=== PATIENT | male | born 1965 | race Caucasian/White ===

== ENCOUNTER 2016-06-13 07:53 | Emergency (ER) | payer BC ==
[2016-06-13 08:17] VITALS: BP 165/85
[2016-06-13] MEDS ORDERED: Ketorolac INJ* 60 MG/2 ML VIAL IM ONE (08:44)
--- NOTE | 2016-06-13 15:10 | UC ---
mal Soto Timothy, scribed for Blanca Wilkerson DO on 06/13/16 at 0826 . Back Pain HPI - HPI Summary HPI Summary: Cr Lr is a 50 yo male presenting to [facility] with 8/10 mid-back ache radiating bilaterally to his flanks since 06/11/16. He states his left flank pain is worse than his right. He states when the pain started, he felt a knot in his middle back. Movement increases his pain, and laying flat on his back decreases the pain. He has medicated with heat, bengay, and ibuprofen with no relief. He states his urine has odd odor and is more colored than usual. He denies any other Sx. 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 He is a 1PPD smoker for the past 30 years, and occasionally uses marijuana. - History of Current Complaint Chief Complaint: UCBackPain Stated Complaint: MIDDLE BACK PAIN Time Seen by Provider: 06/13/16 08:17 Hx Obtained From: Patient Onset/Duration: Gradual Onset, Lasting Days, Still Present Timing: Constant, Lasting Days Severity Initially: Moderate Severity Currently: Moderate Pain Intensity: 9 Pain Scale Used: 0-10 Numeric Back Pain: Is Discrete @ - middle back, Radiates To - bilateral flanks Character: Aching Aggravating: Movement Alleviating: Position Associated Signs And Symptoms: Positive: Flank Pain. Negative: Swelling, Redness, Bruising, Fever, Weakness, Numbness, Tingling, Abdominal Pain, Bladder Incontinence, Bowel Incontinence - Risk Factors Cauda Equina Risk Factors: Negative - Allergies/Home Medications Allergies/Adverse Reactions: Allergies Allergy/AdvReac Type Severity Reaction Status Date / Time Banana Allergy Difficulty Verified 06/13/16 08:04 Breathing Levofloxacin [From Levaquin] Allergy Difficulty Verified 06/13/16 08:04 Breathing Home Medications: Home Medications Lisinopril TAB* [Prinivil TAB 10 MG*] 1 tab DAILY 06/13/16 [History Confirmed ] PMH/Surg Hx/FS Hx/Imm Hx Endocrine History Of: Reports: Diabetes - Type II Denies: Thyroid Disease, Hyperthyroidism, Hypothyroidism, Dyslipidemia Cardiovascular History Of: Reports: Hypertension Denies: Cardiac Disorders, Pacemaker/ICD, Myocardial Infarction, Congestive Heart Failure, Atrial Fibrillation, Deep Vein Thrombosis, Bleeding Disorders Respiratory History Of: Reports: COPD, Asthma, Pneumonia - 2013 Denies: Bronchitis, Pulmonary Embolism GI/ History Of: Denies: Gastroesophageal Reflux, Ulcer, Gastrointestinal Bleed, Gall Bladder Disease, Kidney Stones, Diverticulitis, Renal Disease, Urosepsis Neurological History Of: Denies: TIA, CVA, Dementia, Seizures, Migraine Psychological History Of: Denies: Anxiety, Depression, Bipolar Disorder, Schizophrenia, Post Traumatic Stress Disorder Cancer History Of: Denies: Lung Cancer, Colorectal Cancer, Breast Cancer, Prostate Cancer, Cervical Cancer Other History Of: Negative For: HIV, Hepatitis B, Hepatitis C, Anticoagulant Therapy - Surgical History Surgical History: None - Family History Known Family History: Positive: Cardiac Disease, Hypertension, Diabetes - Social History Occupation: Employed Full-time Alcohol Use: Occasionally Alcohol Amount: 3-4 shots a night Substance Use Type: Marijuana Smoking Status (MU): Heavy Every Day Tobacco Smoker Type: Cigarettes Amount Used/How Often: 1 PPD Length of Time of Smoking/Using Tobacco: 30+ years Have You Smoked in the Last Year: Yes Household Exposure Type: Cigarettes Cessation Counseling: Counseled 3+Min - 10 Min - Immunization History Most Recent Influenza Vaccination: doesn't usually get Most Recent Tetanus Shot: has had it doesnt remember when Most Recent Pneumonia Vaccination: unknown Review of Systems Constitutional: Negative Skin: Negative Eyes: Negative ENT: Negative Respiratory: Negative Cardiovascular: Negative Gastrointestinal: Negative Genitourinary: Other - bilateral flank pain, odorous and colored urine Motor: Negative Neurovascular: Negative Musculoskeletal: Other: - middle back pain Neurological: Negative Psychological: Negative All Other Systems Reviewed And Are Negative: Yes Physical Exam Triage Information Reviewed: Yes Appearance: Well-Appearing, Pain Distress - intermittent, Obese Vital Signs: Initial Vital Signs Temp 98 F 06/13/16 08:07 Pulse 91 06/13/16 08:07 Resp 18 06/13/16 08:07 BP 193/105 06/13/16 08:07 Pulse Ox 91 06/13/16 08:07 Vital Signs Reviewed: Yes Eyes: Positive: Conjunctiva Clear. Negative: Discharge ENT: Positive: Hearing grossly normal. Negative: Muffled/hoarse voice Dental: Positive: Gross Decay/Caries @ Neck: Positive: Supple, Nontender Respiratory: Positive: Lungs clear, Normal breath sounds - difficult to appreciate breath sounds, No respiratory distress, No accessory muscle use Cardiovascular: Positive: RRR - distant, No Murmur Abdomen Description: Positive: Soft. Negative: Nontender - RLQ tenderness to palpation, CVA Tenderness (R), CVA Tenderness (L), Distended, Guarding, McBurney 's Point Tenderness Bowel Sounds: Positive: Present Musculoskeletal: Positive: Other: - resitricted rotation to the left, side-bend to the right. Tender psoas, paraspinal muscles, left greater than right Neurological: Positive: Alert, Muscle Tone Normal, Other: - strength, reflexes and sensation intact bl Psychological Exam: Normal Psychological: Positive: Age Appropriate Behavior Skin Exam: Normal Re-Evaluation - Re-Evaluation First Eval Re-Evaluation Time: 09:15 Change: Unchanged Comment: Pt is informed of current diagnosis and disposition, and is having his questions answered. Back Pain Course/Dx - Course Course Of Treatment: Cr Lr is a 50 yo male presenting to [facility] with mid- back pain radiating bilaterally to his flanks. After clinical examination, urinalysis, and POC glucose (see results below),he will be discharged home with low back strain and appropriate instructions. POC Glucose: 174 mg/dL. UA. Color: yellow. character: clear. odor: none. Bilirubin: negative. urobilinogen: normal. ketones: 25 mg/dL. ascorbic acid: negative. glucose: negative. Protein: 100mg/dL. Blood: negative. pH: 5. Nitrite: negative. Leukocytes: 25 wBC/microliter. Specific [place]: 1.035 - Differential Dx/Diagnosis Differential Diagnosis/HQI/PQRI: Renal Colic, Strain, Sprain Provider Diagnoses: low back strain Discharge - Discharge Plan Condition: Stable Disposition: HOME Prescriptions: Cyclobenzaprine TAB* [Flexeril TAB*] 10 mg PO TID PRN #30 tab PRN Reason: Pain traMADol TAB* [Ultram*] 50 mg PO Q8H PRN #14 tab MDD 3 TABS PRN Reason: Pain Patient Education Materials: Low Back Strain (ED), Lower Back Exercises (ED) Forms: *Gen. Provider Communication, *Work Release Referrals: Dheeraj MOREAU,Daniele Daugherty [Primary Care Provider] - (FOLLOW UP IN 3-5) Additional Instructions: MUSCLE RELAXERS: Muscle relaxing medications are usually prescribed for acute muscle spasm or injury to the neck and back. They are often combined with antiinflammatory pain medication for increased relief. You may stop the muscle relaxer when the pain and stiffness have improved. Start the medication again if spasms recur. Muscle relaxers may cause drowsiness, especially with the first dose. Do not operate machinery or drive while under the effects of the medication. Most muscle relaxers last up to 24 hours. Do not combine the medication with alcohol. ULTRAM (tramadol hydrochloride): Ultram is an excellent drug for pain relief. It is not a narcotic, but it works in a similar way. Ultram can take up to two hours for full effect. Although not addicting, Ultram is best avoided in patients with a history of drug abuse. Ultram should not be used with alcohol, sleeping pills, or narcotics. If you're prone to seizures, Ultram can make you more likely to have a seizure. Ultram can be hazardous when combined with MAO-inhibitor antidepressants (such as Nardil or Parnate). Be sure your doctor is aware of all medicines you are taking. Persons with severe liver or kidney disease should increase the time between doses of Ultram. Discuss this with your doctor if you're uncertain. Side effects of Ultram can include dizziness, nausea, constipation, sleepiness, and itching. (These side effects are also seen with narcotic pain medicines.) Please call your doctor if you have other disturbing effects. STOP SMOKING: You should stop smoking. The tar and chemicals in cigarette smoke are harmful. Smoking has been shown to cause: emphysema chronic bronchitis lung cancer mouth and throat cancer stomach and pancreas cancer premature aging defects In addition, smoking increases ear and lung infections in children of smokers. YOU WOULD LIKELY BENEFIT FROM OSTEOPATHIC TREATMENT. WE RECOMMEND THAT YOU FIND AN OSTEOPATHIC PHYSICIAN IN YOUR AREA WHO FOCUSES EXCLUSIVELY ON OSTEOPATHIC MANIPULATIVE MEDICINE WITH EXPERTISE IN MYOFACIAL, LYMPHATIC, VISCERAL AND INTEROSSEOUS WORK If your pain persists, you may want to request physical therapy from your PCP. The documentation as recorded by the mal velázquez Timothy accurately reflects the service I personally performed and the decisions made by me, Blanca Wilkerson DO.
== END 2016-06-13 09:27 | disposition home or self-care (01) ==
LOC: UCEAST 07:53
DX: S39.012A Strain of muscle, fascia and tendon of lower back, initial encounter (principal); X58.XXXA Exposure to other specified factors, initial encounter; Y93.9 Activity, unspecified; Y92.9 Unspecified place or not applicable; R82.90 Unspecified abnormal findings in urine; E11.9 Type 2 diabetes mellitus without complications; Z88.8 Allergy status to other drugs, medicaments and biological substances; F12.90 Cannabis use, unspecified, uncomplicated; F17.210 Nicotine dependence, cigarettes, uncomplicated; Z71.6 Tobacco abuse counseling
CPT/HCPCS: 81002; 87086; 99212; G0463; J1885

== ENCOUNTER 2016-06-19 07:02 | Emergency (ER) | payer BC ==
[2016-06-19 07:13] VITALS: BP 181/90
[2016-06-19] MEDS: Ipratropium 0.5MG/2.5ML NEB* 0.5 MG/2.5 ML NEB.SOLN INH ONE (07:21)
[2016-06-19] MEDS: Albuterol 2.5 MG/3 ML NEB.SOL* (0.083%) INH ONE (07:21)
--- NOTE | 2016-06-19 07:21 | UC ---
Respiratory Complaint HPI - HPI Summary HPI Summary: 51 yo male with copd presents with <48 hours of fever/chills, sinus pain and pressure/cough/wheezing and GARCIA did not have flu shot this yr - History of Current Complaint Chief Complaint: UCRespiratory Stated Complaint: SOB ASTHMA COPD Time Seen by Provider: 06/19/16 07:07 Hx Obtained From: Patient Onset/Duration: Sudden Onset, Lasting Days Timing: Constant Severity Initially: Moderate Severity Currently: Moderate Pain Intensity: 4 Pain Scale Used: 0-10 Numeric Character: Cough: Productive Aggravating Factors: Deep Breaths Alleviating Factors: Bronchodilator Associated Signs And Symptoms: Positive: Dyspnea, Fever, Chills, Wheezing, Nasal Congestion, Hoarseness, Sinus Discomfort - Allergies/Home Medications Allergies/Adverse Reactions: Allergies Allergy/AdvReac Type Severity Reaction Status Date / Time Banana Allergy Difficulty Verified 06/13/16 08:04 Breathing Levofloxacin [From Levaquin] Allergy Difficulty Verified 06/13/16 08:04 Breathing PMH/Surg Hx/FS Hx/Imm Hx Previously Healthy: No Endocrine History Of: Reports: Diabetes - Type II Denies: Thyroid Disease, Hyperthyroidism, Hypothyroidism, Dyslipidemia Cardiovascular History Of: Reports: Hypertension Denies: Cardiac Disorders, Pacemaker/ICD, Myocardial Infarction, Congestive Heart Failure, Atrial Fibrillation, Deep Vein Thrombosis, Bleeding Disorders Respiratory History Of: Reports: COPD, Asthma, Pneumonia - 2012 Denies: Bronchitis, Pulmonary Embolism GI/ History Of: Denies: Gastroesophageal Reflux, Ulcer, Gastrointestinal Bleed, Gall Bladder Disease, Kidney Stones, Diverticulitis, Renal Disease, Urosepsis Neurological History Of: Denies: TIA, CVA, Dementia, Seizures, Migraine Psychological History Of: Denies: Anxiety, Depression, Bipolar Disorder, Schizophrenia, Post Traumatic Stress Disorder Cancer History Of: Denies: Lung Cancer, Colorectal Cancer, Breast Cancer, Prostate Cancer, Cervical Cancer Other History Of: Negative For: HIV, Hepatitis B, Hepatitis C, Anticoagulant Therapy - Surgical History Surgical History: None - Family History Known Family History: Positive: Cardiac Disease, Hypertension, Diabetes - Social History Alcohol Use: Daily Alcohol Amount: 3-4 shots a night Substance Use Type: Marijuana Smoking Status (MU): Heavy Every Day Tobacco Smoker Type: Cigarettes Amount Used/How Often: 1 PPD Length of Time of Smoking/Using Tobacco: 35+ years Have You Smoked in the Last Year: Yes Household Exposure Type: Cigarettes Cessation Counseling: Patient Advised to Stop - Immunization History Most Recent Influenza Vaccination: doesn't usually get Most Recent Tetanus Shot: has had it doesnt remember when Most Recent Pneumonia Vaccination: unknown Review of Systems Constitutional: Fever, Chills, Fatigue Skin: Negative Eyes: Negative ENT: Nasal Discharge Respiratory: Shortness Of Breath, Cough Cardiovascular: Negative Gastrointestinal: Negative Genitourinary: Negative Motor: Negative Neurovascular: Negative Musculoskeletal: Myalgia Neurological: Headache Psychological: Negative All Other Systems Reviewed And Are Negative: Yes Physical Exam Triage Information Reviewed: Yes Appearance: Well-Appearing, No Pain Distress, Well-Nourished Vital Signs: Initial Vital Signs Temp 99.1 F 06/19/16 07:09 Pulse 91 06/19/16 07:09 Resp 22 06/19/16 07:09 BP 181/90 06/19/16 07:09 Pulse Ox 89 06/19/16 07:09 Vital Signs Reviewed: Yes Eyes: Positive: Conjunctiva Clear ENT: Positive: Hearing grossly normal, Nasal congestion, Nasal drainage, TMs normal. Negative: Tonsillar exudate, Trismus, Muffled/hoarse voice Neck: Positive: Supple, Nontender, No Lymphadenopathy Respiratory: Positive: No respiratory distress, No accessory muscle use, Wheezing Cardiovascular: Positive: RRR, No Murmur Musculoskeletal: Positive: ROM Intact, No Edema Neurological: Positive: Alert Psychological Exam: Normal Skin Exam: Normal UC Diagnostic Evaluation - Laboratory O2 Sat by Pulse Oximetry: 89 - low - Radiology Xray Interpretation: No Acute Changes Radiology Interpretation Completed By: Radiologist Re-Evaluation - Re-Evaluation First Eval Re-Evaluation Time: 07:50 Change: Improved - lungs clear Respiratory Course/Dx - Differential Dx/Diagnosis Provider Diagnoses: acute bronchitis with bronchospasm Discharge - Discharge Plan Condition: Stable Disposition: HOME Prescriptions: DOXYcycline CAP(*) [DOXYcycline 100MG CAP(*)] 100 mg PO BID #20 cap Prednisone [Deltasone] 40 mg PO DAILY #10 tab Patient Education Materials: Acute Bronchitis (ED) Forms: *Work Release Referrals: Dheeraj MOREAU,Daniele Daugherty [Primary Care Provider] - 4 Days
--- NOTE | 2016-06-19 08:17 | RAD ---
HISTORY: Cough, wheeze COMPARISONS: 06/20 2015 VIEWS: 2: Frontal dual-energy and lateral views of the chest. FINDINGS: CARDIOMEDIASTINAL SILHOUETTE: The cardiomediastinal silhouette is normal. FROILAN: The froilan are normal. PLEURA: The costophrenic angles are sharp. No pleural abnormalities are noted. LUNG PARENCHYMA: There is hyperinflation with flattening of the diaphragm and expansion of the AP diameter of the chest. ABDOMEN: The upper abdomen is clear. There is no subphrenic gas. BONES AND SOFT TISSUES: No bone or soft tissue abnormalities are noted. OTHER: None. IMPRESSION: HYPERINFLATION, CONSISTENT WITH COPD. NO ACTIVE CARDIOPULMONARY DISEASE.
== END 2016-06-19 08:37 | disposition home or self-care (01) ==
LOC: UCEAST 07:02
DX: J20.9 Acute bronchitis, unspecified (principal); F17.290 Nicotine dependence, other tobacco product, uncomplicated; E11.9 Type 2 diabetes mellitus without complications; I10 Essential (primary) hypertension
CPT/HCPCS: 71020; 87502; 99212; G0463; J7644

== ENCOUNTER 2016-08-31 12:58 | Emergency (ER) | payer BC ==
[2016-08-31] MEDS ORDERED: Albuterol/Ipratropium NEB.SOL* Albuterol 2.5 MG/Ipratropium 0.5 MG 3 ML INH ONE (13:16)
[2016-08-31 14:18] VITALS: BP 146/78
--- NOTE | 2016-09-03 17:48 | UC ---
Hodan Soto Auryana, scribed for Kraig Baird MD on 08/31/16 at 1335 . Respiratory Complaint HPI - HPI Summary HPI Summary: 51 year old males presents with SOB starting a few days ago. He also has diffuse myalgias and productive cough - white sputum. He does state that his significant other had a U.R.I. PMHx is insignificant for asthma, COPD with chronic bronchitis- nebulizer treatments, and DM II. SHx is significant for tobacco use. - History of Current Complaint Chief Complaint: UCRespiratory Stated Complaint: SOB Time Seen by Provider: 08/31/16 13:15 Hx Obtained From: Patient Onset/Duration: Gradual Onset, Lasting Days - few days, Still Present Timing: Constant Severity Initially: Mild Severity Currently: Moderate Character: Cough: Productive - white small Associated Signs And Symptoms: Positive: Dyspnea, Wheezing. Negative: Fever Related History: Similar Episode/Dx as: - states chronically SOB-COPD and chronic bronchitis - Allergies/Home Medications Allergies/Adverse Reactions: Allergies Allergy/AdvReac Type Severity Reaction Status Date / Time Banana Allergy Difficulty Verified 06/13/16 08:04 Breathing Levofloxacin [From Levaquin] Allergy Difficulty Verified 06/13/16 08:04 Breathing PMH/Surg Hx/FS Hx/Imm Hx Endocrine History Of: Reports: Diabetes - Type II Denies: Thyroid Disease, Hyperthyroidism, Hypothyroidism, Dyslipidemia Cardiovascular History Of: Reports: Hypertension Denies: Cardiac Disorders, Pacemaker/ICD, Myocardial Infarction, Congestive Heart Failure, Atrial Fibrillation, Deep Vein Thrombosis, Bleeding Disorders Respiratory History Of: Reports: COPD, Asthma, Pneumonia - 2012 Denies: Bronchitis, Pulmonary Embolism GI/ History Of: Denies: Gastroesophageal Reflux, Ulcer, Gastrointestinal Bleed, Gall Bladder Disease, Kidney Stones, Diverticulitis, Renal Disease, Urosepsis Neurological History Of: Denies: TIA, CVA, Dementia, Seizures, Migraine Psychological History Of: Denies: Anxiety, Depression, Bipolar Disorder, Schizophrenia, Post Traumatic Stress Disorder Cancer History Of: Denies: Lung Cancer, Colorectal Cancer, Breast Cancer, Prostate Cancer, Cervical Cancer Other History Of: Negative For: HIV, Hepatitis B, Hepatitis C, Anticoagulant Therapy - Surgical History Surgical History: None - Family History Known Family History: Positive: Cardiac Disease, Hypertension, Diabetes - Social History Occupation: Employed Full-time Lives: With Family Alcohol Use: Daily Alcohol Amount: 3-4 shots a night Substance Use Type: Marijuana Smoking Status (MU): Heavy Every Day Tobacco Smoker Type: Cigarettes Amount Used/How Often: 1 PPD Length of Time of Smoking/Using Tobacco: 35+ years Have You Smoked in the Last Year: Yes Household Exposure Type: Cigarettes - Immunization History Most Recent Influenza Vaccination: doesn't usually get Most Recent Tetanus Shot: has had it doesnt remember when Most Recent Pneumonia Vaccination: unknown Review of Systems Constitutional: Negative Skin: Negative Eyes: Negative ENT: Negative Respiratory: Shortness Of Breath, Cough - productive Cardiovascular: Negative Gastrointestinal: Negative Genitourinary: Negative Motor: Negative Neurovascular: Negative Musculoskeletal: Negative Neurological: Negative Psychological: Negative All Other Systems Reviewed And Are Negative: Yes Physical Exam Triage Information Reviewed: Yes Appearance: Well-Appearing, No Pain Distress Vital Signs: Initial Vital Signs Temp 98.4 F 08/31/16 13:04 Pulse 99 08/31/16 13:04 Resp 28 08/31/16 13:04 BP 128/87 08/31/16 13:04 Pulse Ox 93 08/31/16 13:04 Vital Signs Reviewed: Yes Eyes: Positive: Conjunctiva Clear ENT: Positive: Hearing grossly normal, Pharyngeal erythema - mild, Nasal drainage - rhinorrhea, TMs normal Neck: Positive: Supple Respiratory: Positive: Wheezing Cardiovascular: Positive: Tachycardia Abdomen Description: Positive: Nontender, Soft Bowel Sounds: Positive: Present Musculoskeletal: Positive: Strength Intact, ROM Intact Neurological: Positive: Alert Psychological: Positive: Age Appropriate Behavior UC Diagnostic Evaluation - Laboratory O2 Sat by Pulse Oximetry: 93 Respiratory Course/Dx - Differential Dx/Diagnosis Provider Diagnoses: BRONCHITIS,COPD Discharge - Discharge Plan Condition: Stable Disposition: HOME Prescriptions: Azithromyxin SHAHRIAR (NF) [Z-Shahriar (Zithromax) 250 mg tabs #6] 2 tab PO .TODAY, THEN 1 DAILY #6 tab predniSONE TAB* [Deltasone TAB*] 40 mg PO DAILY #10 tab Patient Education Materials: Acute Bronchitis (ED), COPD (Chronic Obstructive Pulmonary Disease) (ED) Referrals: Dheeraj MOREAU,Daniele Daugherty [Primary Care Provider] - Additional Instructions: FOLLOW UP WITH YOUR DOCTOR. GO THE EMERGENCY DEPARTMENT WITH ANY WORSENING OF YOUR CONDITION OR QUESTIONS OR CONCERNS. The documentation as recorded by the Hodan velázquez Auryana accurately reflects the service I personally performed and the decisions made by me, Kraig Baird MD.
== END 2016-08-31 14:21 | disposition home or self-care (01) ==
LOC: UCEAST 12:58
DX: J44.9 Chronic obstructive pulmonary disease, unspecified (principal); J20.9 Acute bronchitis, unspecified; E11.9 Type 2 diabetes mellitus without complications; I10 Essential (primary) hypertension; Z88.1 Allergy status to other antibiotic agents; F12.90 Cannabis use, unspecified, uncomplicated; F17.210 Nicotine dependence, cigarettes, uncomplicated
CPT/HCPCS: 99212; A9270-GY; G0463

== ENCOUNTER 2016-11-15 08:55 | Emergency (ER) | payer BC ==
--- NOTE | 2016-11-15 09:10 | UC ---
Shortness of Breath HPI - HPI Summary HPI Summary: 51 year old male with COPD presents with complains of shortness of breath. - History of Current Complaint Chief Complaint: UCRespiratory Stated Complaint: TROUBLE BREATHING Time Seen by Provider: 11/15/16 09:04 - Allergy/Home Medications Allergies/Adverse Reactions: Allergies Allergy/AdvReac Type Severity Reaction Status Date / Time Banana Allergy Difficulty Verified 11/15/16 09:03 Breathing Levofloxacin [From Levaquin] Allergy Difficulty Verified 11/15/16 09:03 Breathing PMH/Surg Hx/FS Hx/Imm Hx Other History Of: Negative For: HIV, Hepatitis B, Hepatitis C, Anticoagulant Therapy - Surgical History Surgical History: None - Family History Known Family History: Positive: Cardiac Disease, Hypertension, Diabetes - Social History Alcohol Use: Daily Alcohol Amount: 3-4 shots a night Substance Use Type: Marijuana Smoking Status (MU): Heavy Every Day Tobacco Smoker Type: Cigarettes Amount Used/How Often: "a little less than a pack/day" Length of Time of Smoking/Using Tobacco: 35+ years Have You Smoked in the Last Year: Yes Household Exposure Type: Cigarettes - Immunization History Most Recent Influenza Vaccination: doesn't usually get Most Recent Tetanus Shot: has had it doesnt remember when Most Recent Pneumonia Vaccination: unknown Review of Systems Constitutional: Negative Skin: Negative Eyes: Negative ENT: Negative, Dental Pain Respiratory: Shortness Of Breath, Cough Cardiovascular: Negative Gastrointestinal: Negative Genitourinary: Negative Motor: Negative Neurovascular: Negative Musculoskeletal: Negative Neurological: Negative Psychological: Negative All Other Systems Reviewed And Are Negative: Yes Physical Exam Triage Information Reviewed: Yes Vital Signs: Initial Vital Signs Temp 36.7 C 11/15/16 08:58 Pulse 85 11/15/16 08:58 Resp 16 11/15/16 08:58 BP 174/92 11/15/16 08:58 Pulse Ox 91 11/15/16 08:58 Eye Exam: Normal ENT Exam: Normal Dental Exam: Normal Neck exam: Normal Neck: Positive: 1 Respiratory: Positive: Decreased breath sounds, Rhonchi, Wheezing, Expiration Cardiovascular Exam: Normal Abdominal Exam: Normal Musculoskeletal Exam: Normal Neurological Exam: Normal Psychological Exam: Normal Skin Exam: Normal Shortness of Breath Dx - Differential Dx/Diagnosis Provider Diagnoses: copd exacerbation Discharge - Discharge Plan Condition: Stable Disposition: HOME Prescriptions: Albuterol HFA INHALER* [Ventolin HFA Inhaler*] 1 puff INH Q6H PRN #1 mdi PRN Reason: Sob/Wheezing Azithromyxin NITESH (NF) [Z-Nitesh (Zithromax) 250 mg tabs #6] 2 tab PO .TODAY, THEN 1 DAILY #6 tab predniSONE TAB* [Deltasone TAB*] 40 mg PO DAILY #10 tab Patient Education Materials: COPD (Chronic Obstructive Pulmonary Disease) (ED) , How Your Lungs Work (ED), Dyspnea Scale and Exercise (ED) Forms: *Work Release Referrals: Dheeraj MOREAU,Daniele Daugherty [Primary Care Provider] -
[2016-11-15] MEDS ORDERED: Albuterol/Ipratropium NEB.SOL* Albuterol 2.5 MG/Ipratropium 0.5 MG 3 ML INH ONE (09:16)
[2016-11-15 09:46] VITALS: BP 152/86
== END 2016-11-15 09:46 | disposition home or self-care (01) ==
LOC: UCEAST 08:55
DX: J44.9 Chronic obstructive pulmonary disease, unspecified (principal); F17.210 Nicotine dependence, cigarettes, uncomplicated
CPT/HCPCS: 99213; A9270-GY; G0463

== ENCOUNTER 2016-11-30 08:05 | Observation (INO) | payer BC ==
[2016-11-30] MEDS ORDERED: methylPREDNISolone 125 MG* 2 ML VIAL IV ONE (08:49)
[2016-11-30] MEDS ORDERED: Albuterol/Ipratropium NEB.SOL* Albuterol 2.5 MG/Ipratropium 0.5 MG 3 ML INH ONE (08:49)
[2016-11-30 08:58] LABS: Hematocrit 49 % (42-52); Hemoglobin 16.1 g/dl (14.0-18.0); Mean Corpuscular HGB Conc 33 g/dl (31-36); Mean Corpuscular Hemoglobin 30 pg (27-31); Mean Corpuscular Volume 91 fL (80-94); Mean Platelet Volume 9 um3 (7.4-10.4); Red Blood Count 5.37 10^6/ul (4.0-5.4); Red Cell Distribution Width 14 % (10.5-15); White Blood Count 6.9 10^3/ul (3.5-10.8)
[2016-11-30 09:10] LABS: Albumin 3.8 g/dL (3.2-5.2); Calcium 9.1 mg/dL (8.6-10.3); EGFR African American 167.2 (>60); Potassium 4.9 mmol/L (3.5-5.0); Total Bilirubin 0.4 mg/dL (0.2-1.0); Total Protein 6.8 g/dL (6.4-8.9)
[2016-11-30 09:13] LABS: Troponin I 0.01 ng/mL (<0.04)
--- NOTE | 2016-11-30 09:17 | RAD ---
INDICATION: Difficulty breathing COMPARISON: Similar chest x-ray June 19, 2016 TECHNIQUE: PA and lateral views of the chest were obtained. FINDINGS: The heart and mediastinum are normal in size and contour. The lungs are grossly clear. There is no evidence of large pleural effusion. Visualized bones are normal for the patient's age. There is no radiographic evidence of free air beneath the diaphragm IMPRESSION: No radiographic evidence of acute cardiopulmonary disease.
[2016-11-30] MEDS ORDERED: Albuterol 2.5 MG/3 ML NEB.SOL* (0.083%) INH PRN (11:32)
[2016-11-30] MEDS ORDERED: Ondansetron INJ* 2 MG/ML VIAL IV PRN (11:32)
[2016-11-30] MEDS ORDERED: Acetaminophen TAB* 325 MG PO PRN (11:32)
[2016-11-30] MEDS ORDERED: Dextrose 50% Syringe 50 ML* 25 GM/50 ML SYRINGE IV PUSH PRN (11:45)
[2016-11-30] MEDS ORDERED: Thiamine IV* 100 MG, Folic Acid IV* 1 MG, Multiple Vitamin IV ADULT* 10 ML in NS 0.9% 1... IV ONE (11:45)
[2016-11-30] MEDS ORDERED: LORazepam TAB(*) 1 MG PO SCH (12:00)
[2016-11-30] MEDS: Heparin VIAL(*) 5000 UNITS/ML VIAL (FIVE THOUSAND) SUBCUT SCH ×2 (14:01→21:29)
[2016-11-30] MEDS: Insulin LISPRO* 1 UNITS UNIT SUBCUT SCH ×2 (14:05→18:27)
[2016-11-30] MEDS: predniSONE TAB* 20 MG PO SCH (14:06)
[2016-11-30] MEDS: Azithromycin IV(*) 500 MG in NS 0.9% 250 ML* 250 ML IVPB SCH (14:10)
[2016-11-30] MEDS: Albuterol/Ipratropium NEB.SOL* Albuterol 2.5 MG/Ipratropium 0.5 MG 3 ML INH SCH ×3 (15:19→23:34)
[2016-11-30] MEDS ORDERED: Insulin LISPRO* 1 UNITS UNIT SUBCUT SCH (16:30)
--- NOTE | 2016-11-30 17:20 | HP ---
CC: Dr. Esqueda * HISTORY AND PHYSICAL: DATE OF ADMISSION: 11/30/16 ATTENDING PHYSICIAN: Dr. Hurtado * (DICTATED BY LANA VALLE NP) PRIMARY CARE PROVIDER: Dr. Esqueda. CHIEF COMPLAINT: Shortness of breath. HISTORY OF PRESENT ILLNESS: Mr. Lr is a 51-year-old male patient with a history of ALEJANDRO, noncompliant with CPAP; COPD; diabetes and hyperlipidemia. He comes into the ER today stating that the last several days he has had progressive worsening shortness of breath, increasing cough, increasing dyspnea on exertion with minimal exertion and stating that he has been bringing up a clear to yellowish type sputum at times. He denies having had any fever or chills. No recent sick contacts. 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 At home he was taking his nebulizers, they were not helping as well as they used to. So, he was concerned and decided to come into the ER today. He denies any nausea, vomiting or diarrhea. No calf pain, leg pain or recent trips or travel or any again pain with inspiration. He came in and was evaluated. There was concern because of the COPD, there was concern for exacerbation, we were asked to evaluate for admission. PAST MEDICAL HISTORY: Significant for: 1. COPD. 2. Diabetes. 3. ALEJANDRO. 4. Hyperlipidemia. PAST SURGICAL HISTORY: The patient denied. HOME MEDICATIONS: According to the list that was obtained include: 1. Lisinopril 20 mg daily. 2. Albuterol 1 puff inhaled every 6 hours as needed. 3. Spiriva 1 capsule inhaled daily. 4. Lantus 70 units daily subcu. 5. Advair 2 puffs inhaled b.i.d. FAMILY HISTORY: His mother's history was reviewed and noncontributory. Father had a history of liver cirrhosis. SOCIAL HISTORY: He is a smoker. He smokes about a pack a day. He does have 2 drinks at night, but at sometimes he drinks up to 5 drinks at night. He denies any recreational drug use. Surrogate decision maker is his girlfriend. REVIEW OF SYSTEMS: There was no documented fever. Denied having had any significant weight change. There was no double vision. There was no ear discharge. No rhinorrhea. No sore throat. No thyroid enlargement. Denied having any chest pain with the exception when he coughs. Denied having had any abdominal discomfort. No nausea. No vomiting. No dysuria. No frequency. There was no dyspnea on exertion. There is no orthopnea. There is no loss of consciousness. No pruritus. No skin ulcerations. Review of 14 systems completed, all others negative. PHYSICAL EXAMINATION GENERAL: At this time, Mr. Lr is a 51-year-old male patient, he is sitting in the ER stretcher, he does not appear to be in any acute respiratory distress. VITAL SIGNS: Blood pressure 147/75, pulse 95, respirations 18, O2 sat initially was 86% on room air, it is down 95% on 2 L and temperature was 98.4. When he ambulates, his O2 sat drops down to 79% down here in the ER. HEENT: Head is atraumatic, normocephalic. Eyes, EOMs are intact. Sclerae anicteric. Not pale. Throat: Oral mucosa appears to be moist. No oropharyngeal erythema. NECK: Supple. LUNGS: He has had rhonchi throughout and wheezing in the upper lobe. Equal diaphragmatic expansion. HEART: Sounds S1, S2. Regular rate and rhythm. No murmurs, rubs or gallops. ABDOMEN: Soft, flat, nontender. Bowel sounds present. EXTREMITIES: Pulses are 2+ throughout. He is able to move all 4 extremities with 5/5 strength. NEUROLOGIC: The patient is awake, alert and oriented x3. Tongue midline. Promotions Team Leader equal. No gross focal deficits. SKIN: Intact. DIAGNOSTIC STUDIES/LAB DATA: Today revealed WBC 6.9, RBC of 5.27, hemoglobin 16.1, hematocrit 49, platelet count of 128. D-dimer was less than 200. Sodium 136, potassium 4.9, chloride 95, bicarb 34, BUN 13, creatinine 0.65, glucose 287 , lactate 1.6, calcium 9.1. Total bili is 3.4, his AST was 25, ALT was 30, alk phos 36. Troponin was 0.01, BNP 834. Albumin is 3.8. He did have a chest x-ray obtained today which impression: No radiographic evidence for acute cardiopulmonary disease. He had an EKG obtained today which revealed a normal sinus rhythm with an intraventricular conduction delay, rate 85. No ST elevations or T-wave inversions. It was reviewed with previous EKG from a year ago which appears to be similar. Old medical records reviewed. ASSESSMENT AND PLAN: Mr. Lr is a 51-year-old male patient coming into the ER today with complaints of not feeling well, increasing cough, increasing shortness of breath and dyspnea on exertion. On evaluation found to be rhonchus , no wheezing on exam. He will be admitted under observation status for: 1. Chronic obstructive pulmonary disease exacerbation. At this point, we will go ahead and put him on steroids, standing nebs, put him on azithromycin. I do not think he is actually infected, but the azithromycin may help inflammation. We will check legionella antigen, strep pneumo antigen, sputum cultures as well. We will order a flutter valve for pulmonary toileting and will continue with again steroids, Dulera, and standing nebs. 2. Diabetes. We will continue on him insulin sliding scale. Continue his Lantus and checking an A1c. 3. History of hypertension continue meds prescribed. 4. Obstructive sleep apnea, follow up with his primary. 5. Ethanol use. At this point, I am going to go ahead and give him a banana bag, put him on WAM protocol as he does state that he drinks up to 5 mixed drinks on a nightly basis at times, so we will monitor this. 6. DVT prophylaxis: He is at moderate risk. I am going to go ahead and put him on heparin subcu. 7. Code status. He is full code. 8. Fluids, electrolytes, nutrition: He can have a consistent carb diet. TIME SPENT: Time spent on the admission was approximately 60 minutes, greater than half the time was spent [id number] with the patient, obtaining my history and physical, the other time was spent going over the plan of care with the patient and implementing my plan of care. I did discuss the plan of care with my attending Dr. Hurtado, she is in agreement. LANA VALLE NP [id number]/[facility] #: [id number] MTDD
[2016-11-30] MEDS ORDERED: Insulin GLARGINE(*) 1 UNITS UNIT SUBCUT SCH (18:30)
[2016-11-30] MEDS: Mometasone/Formoter 200/5 MDI INH SCH (19:45)
[2016-12-01] MEDS: Albuterol/Ipratropium NEB.SOL* Albuterol 2.5 MG/Ipratropium 0.5 MG 3 ML INH SCH ×3 (02:58→11:43)
[2016-12-01 04:43] LABS: Hematocrit 45 % (42-52); Hemoglobin 14.9 g/dl (14.0-18.0); Mean Corpuscular HGB Conc 33 g/dl (31-36); Mean Corpuscular Hemoglobin 30 pg (27-31); Mean Corpuscular Volume 91 fL (80-94); Mean Platelet Volume 9 um3 (7.4-10.4); Red Blood Count 4.93 10^6/ul (4.0-5.4); Red Cell Distribution Width 14 % (10.5-15); White Blood Count 9.6 10^3/ul (3.5-10.8)
[2016-12-01 04:54] LABS: BUN/Creatinine Ratio 27.1 (8-20); Calcium 8.6 mg/dL (8.6-10.3); EGFR Non-African American 145.4 (>60)
[2016-12-01 05:04] LABS: Potassium 4.7 mmol/L (3.5-5.0)
[2016-12-01] MEDS: Heparin VIAL(*) 5000 UNITS/ML VIAL (FIVE THOUSAND) SUBCUT SCH ×2 (06:01→13:32)
[2016-12-01] MEDS: Mometasone/Formoter 200/5 MDI INH SCH (07:46)
[2016-12-01] MEDS: predniSONE TAB* 20 MG PO SCH (08:46)
[2016-12-01] MEDS: Insulin LISPRO* 1 UNITS UNIT SUBCUT SCH ×2 (08:46→13:29)
[2016-12-01] MEDS ORDERED: Lisinopril TAB* 10 MG PO SCH (09:00)
[2016-12-01] MEDS ORDERED: Thiamine TAB* 100 MG TAB PO SCH (09:00)
[2016-12-01] MEDS ORDERED: Multivitamins/Minerals TAB PO SCH (09:00)
[2016-12-01] MEDS ORDERED: Folic Acid TAB* 1 MG PO SCH (09:00)
[2016-12-01 12:44] VITALS: BP 153/83
[2016-12-01] MEDS: Azithromycin IV(*) 500 MG in NS 0.9% 250 ML* 250 ML IVPB SCH (13:39)
--- NOTE | 2016-12-01 14:08 | PN ---
Progress Note - Progress Note Date of Service: 12/01/16 Note: See my discharge summary. I also advised patient to limit his alcohol use to not more than 2 drinks per day.
--- NOTE | 2016-12-02 06:11 | DS ---
CC: Dr. Esqueda * DISCHARGE SUMMARY: DATE OF ADMISSION: DATE OF DISCHARGE: 12/01/16 HISTORY: This 51-year-old man presented with shortness of breath. He stated he had an increasing shortness of breath for few days. He describes his sputum as cream colored, not clear. He said he had some wheezing at home. He continued to smoke up until the time of admission. The rest of the history is detailed in the admission note. The patient was given methylprednisolone as well as oral prednisone in the hospital. He improved significantly overnight. He got intravenous azithromycin as well. He was no longer wheezing at the time of discharge. His room air sats did fall into the 80s in the middle of the day. I note he has oxygen at home to use at night. He has been noncompliant with CPAP. I advised him to quit smoking and avoid second-hand smoke. He appeared to be motivated to do so. If he does actually quit smoking, that plus treating his infection should improve his oxygenation and I suspect he would not need daytime oxygen. FINAL DIAGNOSES: 1. Chronic obstructive pulmonary disease exacerbation. 2. Tobacco use disorder. 3. Diabetes. 4. Hypertension. 5. Obstructive sleep apnea. 6. Hyperlipidemia. DISCHARGE MEDICATIONS: 1. Azithromycin 250 mg daily for 4 more days. 2. Prednisone 10 mg to taper from 4 to 0 over 4 days. 3. Guaifenesin 100 mg p.o. 4 times a day by liquid. 4. Advair Diskus 500/50 two puffs b.i.d. 5. Tiotropium 1 capsule daily. 6. Glargine insulin 70 units daily. 7. Lisinopril 20 mg daily. 8. Albuterol inhaler 1 puff every 6 hours p.r.n. [id number]/[facility] #: [id number] [facility]
--- NOTE | 2016-12-03 14:25 | ED ---
Caden Soto Rebecca, scribed for David Welsh MD on 11/30/16 at 0850 . Shortness of Breath - HPI Summary HPI Summary: Pt is a 51 y/o M who presents to ED c/o worsening SOB characterized as dyspnea at rest. Sx aggravated by exertion, alleviated by nothing. Reports his typical Tx are not as effective as they have been previously. Notes productive cough ( milky/clear sputum), intermittent SULLIVAN when he wakes up and a "knot" in the R shoulder over the R trapezius. Denies fever, chills, diaphoresis, edema and CP. States his O2 sat is lower than usual (typically 89-92). Uses 2.5 L O2 per Os at home at night. PMHx DM and COPD. Pt was seen at [facility] 10 days ago where he was given Prednisone and Duoneb and Z-Pac (finished 1 week ago) which he has been compliant with. - History of Current Complaint Chief Complaint: EDShortnessOfBreath Time Seen by Provider: 11/30/16 08:37 Hx Obtained From: Patient Onset/Duration: Still Present Dyspnea At: Rest Aggrevating Factors: Movement Alleviating Factors: Nothing Associated Signs & Symptoms: Cough (Productive) - Allergy/Home Medications Allergies/Adverse Reactions: Allergies Allergy/AdvReac Type Severity Reaction Status Date / Time Banana Allergy Difficulty Verified 11/15/16 09:03 Breathing Levofloxacin [From Levaquin] Allergy Difficulty Verified 11/15/16 09:03 Breathing PMH/Surg Hx/FS Hx/Imm Hx Endocrine/Hematology History: Reports: Hx Diabetes - Type II Denies: Hx Anticoagulant Therapy, Hx Thyroid Disease Cardiovascular History: Reports: Hx Hypertension, Other Cardiovascular Problems/ Disorders - 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 Denies: Hx Congestive Heart Failure, Hx Deep Vein Thrombosis, Hx Myocardial Infarction, Hx Pacemaker/ICD Respiratory History: Reports: Hx Asthma, Hx Chronic Obstructive Pulmonary Disease (COPD), Hx Pneumonia - 2012 Denies: Hx Lung Cancer, Hx Pulmonary Embolism GI History: Denies: Hx Gall Bladder Disease, Hx Gastrointestinal Bleed, Hx Ulcer, Hx Urosepsis History: Denies: Hx Kidney Stones, Hx Renal Disease Sensory History: Denies: Hx Contacts or Glasses, Hx Eye Injury, Hx Vision Problem, Hx Deafness , Hx Hearing Aid, Hx Hearing Problem Opthamlomology History: Denies: Hx Contacts or Glasses, Hx Eye Injury, Hx Vision Problem Neurological History: 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 Denies: Hx Dementia, Hx Migraine, Hx Seizures, Hx Transient Ischemic Attacks (TIA) Psychiatric History: Denies: Hx Anxiety, Hx Depression, Hx Schizophrenia, Hx Bipolar Disorder - Cancer History Cancer Type, Location and Year: DENIES Infectious Disease History: No Infectious Disease History: Denies: Hx Clostridium Difficile, Hx Hepatitis, Hx Human Immunodeficiency Virus (HIV), Hx of Known/Suspected MRSA, Hx Shingles, Hx Tuberculosis, Hx Known/ Suspected VRE, Hx Known/Suspected VRSA, History Other Infectious Disease, Traveled Outside the [place] in Last 30 Days - Family History Known Family History: Positive: Cardiac Disease, Hypertension, Diabetes - Social History Alcohol Use: Daily Alcohol Amount: 3-4 mixed drink daily Substance Use Type: Reports: Marijuana Hx Tobacco Use: No Smoking Status (MU): Light Every Day Tobacco Smoker Type: Cigarettes Amount Used/How Often: "a little less than a pack/day" Length of Time of Smoking/Using Tobacco: 35+ years Have You Smoked in the Last Year: Yes Review of Systems Negative: Fever, Chills, Skin Diaphoresis Negative: Erythema Negative: Sore Throat Negative: Chest Pain Positive: Shortness Of Breath, Cough - productive Negative: Abdominal Pain, Vomiting, Nausea Negative: dysuria, hematuria Positive: Other - "knot" in the R shoulder over the R trapezius. Negative: Edema Negative: Rash Neurological: Other - Denies dizziness Positive: Headache - Intermittent SULLIVAN upon waking up All Other Systems Reviewed And Are Negative: Yes Physical Exam - Summary Physical Exam Summary: Constitutional: Well-developed, Well-nourished, Alert. (-) Distressed Skin: Warm, Dry HENT: Normocephalic; Atraumatic Eyes: Conjunctiva normal Neck: Musculoskeletal ROM normal neck. (-) JVD, (-) Stridor, (-) Tracheal deviation Cardio: Rhythm regular, rate normal, Heart sounds normal; Intact distal pulses; The pedal pulses are 2+ and symmetric. Radial pulses are 2+ and symmetric. (-) Murmur Pulmonary/Chest wall: Effort normal. Diffuse rhonchi and wheezes, (-) Respiratory distress Abd: Soft, (-) Tenderness, (-) Distension, (-) Guarding, (-) Rebound Musculoskeletal: (-) Edema Lymph: (-) Cervical adenopathy Neuro: Alert, Oriented x3 Psych: Mood and affect Normal Triage Information Reviewed: Yes Vital Signs On Initial Exam: Initial Vitals Temp Pulse Resp BP Pulse Ox 98.4 F 95 18 147/75 86 11/30/16 08:06 11/30/16 08:06 11/30/16 08:06 11/30/16 08:06 11/30/16 08:06 Vital Signs Reviewed: Yes - [place] Coma Scale Coma Scale Total: 15 Diagnostics - Vital Signs Vital Signs Temp Pulse Resp BP Pulse Ox 11/30/16 08:26 20 11/30/16 08:23 90 95 11/30/16 08:20 98.9 F 87 20 112/105 94 11/30/16 08:06 98.4 F 95 18 147/75 86 - Laboratory Lab Results: Lab Results 11/30/16 11/30/16 11/30/16 Range/Units 08:35 08:35 08:35 WBC 6.9 (3.5-10.8) 10^3/ul RBC 5.37 (4.0-5.4) 10^6/ul Hgb 16.1 (14.0-18.0) g/dl Hct 49 (42-52) % MCV 91 (80-94) fL MCH 30 (27-31) pg MCHC 33 (31-36) g/dl RDW 14 (10.5-15) % Plt Count 128 L (150-450) 10^3/ul MPV 9 (7.4-10.4) um3 Neut % (Auto) 50.7 (38-83) % Lymph % (Auto) 33.0 (25-47) % [place] % (Auto) 11.7 H (1-9) % Eos % (Auto) 3.4 (0-6) % Baso % (Auto) 1.2 (0-2) % Absolute Neuts (auto) 3.5 (1.5-7.7) 10^3/ul Absolute Lymphs (auto) 2.3 (1.0-4.8) 10^3/ul Absolute Monos (auto) 0.8 (0-0.8) 10^3/ul Absolute Eos (auto) 0.2 (0-0.6) 10^3/ul Absolute Basos (auto) 0.1 (0-0.2) 10^3/ul Absolute Nucleated RBC 0.01 10^3/ul Nucleated RBC % 0.1 D-Dimer, Quantitative < 200 (Less Than 230) ng/mL Sodium 136 (133-145) mmol/L Potassium 4.9 (3.5-5.0) mmol/L Chloride 95 L (101-111) mmol/L Carbon Dioxide 34 H (22-32) mmol/L Anion Gap 7 (2-11) mmol/L BUN 13 (6-24) mg/dL Creatinine 0.65 L (0.67-1.17) mg/dL Est GFR ( Amer) 167.2 (>60) Est GFR (Non-Af Amer) 130.0 (>60) BUN/Creatinine Ratio 20.0 (8-20) Glucose 287 H (70-100) mg/dL Lactic Acid (0.5-2.0) mmol/L Calcium 9.1 (8.6-10.3) mg/dL Total Bilirubin 0.40 (0.2-1.0) mg/dL AST 25 (13-39) U/L ALT 30 (7-52) U/L Alkaline Phosphatase 36 (34-104) U/L Troponin I 0.01 (<0.04) ng/mL B-Natriuretic Peptide ( - 100) pg/mL Total Protein 6.8 (6.4-8.9) g/dL Albumin 3.8 (3.2-5.2) g/dL Globulin 3.0 (2-4) g/dL Albumin/Globulin Ratio 1.3 (1-3) 11/30/16 11/30/16 Range/Units 08:35 08:35 WBC (3.5-10.8) 10^3/ul RBC (4.0-5.4) 10^6/ul Hgb (14.0-18.0) g/dl Hct (42-52) % MCV (80-94) fL MCH (27-31) pg MCHC (31-36) g/dl RDW (10.5-15) % Plt Count (150-450) 10^3/ul MPV (7.4-10.4) um3 Neut % (Auto) (38-83) % Lymph % (Auto) (25-47) % [place] % (Auto) (1-9) % Eos % (Auto) (0-6) % Baso % (Auto) (0-2) % Absolute Neuts (auto) (1.5-7.7) 10^3/ul Absolute Lymphs (auto) (1.0-4.8) 10^3/ul Absolute Monos (auto) (0-0.8) 10^3/ul Absolute Eos (auto) (0-0.6) 10^3/ul Absolute Basos (auto) (0-0.2) 10^3/ul Absolute Nucleated RBC 10^3/ul Nucleated RBC % D-Dimer, Quantitative (Less Than 230) ng/mL Sodium (133-145) mmol/L Potassium (3.5-5.0) mmol/L Chloride (101-111) mmol/L Carbon Dioxide (22-32) mmol/L Anion Gap (2-11) mmol/L BUN (6-24) mg/dL Creatinine (0.67-1.17) mg/dL Est GFR ( Amer) (>60) Est GFR (Non-Af Amer) (>60) BUN/Creatinine Ratio (8-20) Glucose (70-100) mg/dL Lactic Acid 1.6 (0.5-2.0) mmol/L Calcium (8.6-10.3) mg/dL Total Bilirubin (0.2-1.0) mg/dL AST (13-39) U/L ALT (7-52) U/L Alkaline Phosphatase (34-104) U/L Troponin I (<0.04) ng/mL B-Natriuretic Peptide 34 ( - 100) pg/mL Total Protein (6.4-8.9) g/dL Albumin (3.2-5.2) g/dL Globulin (2-4) g/dL Albumin/Globulin Ratio (1-3) Result Diagrams: 12/01/16 04:32 12/01/16 04:32 Lab Statement: Any lab studies that have been ordered have been reviewed, and results considered in the medical decision making process. - Radiology CXR Xray Interpretation: No Acute Changes - No radiographic evidence of acute cardiopulmonary disease. Radiology Interpretation Completed By: Radiologist - EKG 0936 Cardiac Rate: NL - 79 bpm EKG Rhythm: Sinus Rhythm EKG Interpretation: No STEMI Re-Evaluation - Re-Evaluation First Eval Re-Evaluation Time: 10:20 Change: Improved Comment: Pt reports sx have improved. Second Eval Re-Evaluation Time: 11:08 Change: Unchanged Comment: Pt agrees to be admitted. Course/Dx - Course Assessment/Plan: Pt is a 51 y/o M who presents to ED c/o worsening SOB characterized as dyspnea at rest. Sx aggravated by exertion. Reports his typical Tx are not as effective as they have been previously. Notes productive cough (milky/clear sputum), intermittent SULLIVAN when he wakes up and a "knot" in the R shoulder over the R trapezius. Denies fever, chills, diaphoresis, edema and CP. States his O2 sat is lower than usual (typically 89-92). Uses 2.5 L O2 per Os at home at night. PMHx DM and COPD. Pt was seen at [facility] 10 days ago where he was given Prednisone and Duoneb and Z-Pac (finished 1 week ago) which he has been compliant with. In the ED course, pt was administered Solu-Medrol and Duoneb. CXR and EKG reveal no acute findings. Reviewed old records and in 2016 he had pulse oximetry at 89%. Discussed care of pt with Dr. Evelia Hurtado who accepts pt for admission. The pt agrees and understands. patient medications reviewed this visit. Elevated BP noted and advised to f/u. 35 minutes CC time. - Diagnoses Provider Diagnoses: Hypoxemia, COPD exacerbation - Physician Notifications Discussed Care of Patient With: Evelia Hurtado Time Discussed With Above Provider: 11:06 Instructed by Provider To: Other - Accepts pt for admission. - Critical Care Time Critical Care Time: 30-74 min - 35 minutes Discharge - Discharge Plan Condition: Improved Disposition: ADMITTED TO [facility] documentation as recorded by the Caden velázquez Rebecca accurately reflects the service I personally performed and the decisions made by me, David Welsh MD.
== END 2016-12-01 15:00 | disposition home or self-care (01) ==
LOC: ED 08:05 → MED 11:30
PROVIDERS: ADMIT Hospitalist; ATTEND Internal Medicine
DX: J44.1 Chronic obstructive pulmonary disease with (acute) exacerbation (principal); F17.210 Nicotine dependence, cigarettes, uncomplicated; E11.9 Type 2 diabetes mellitus without complications; Z79.4 Long term (current) use of insulin; G47.33 Obstructive sleep apnea (adult) (pediatric); E78.5 Hyperlipidemia, unspecified; I10 Essential (primary) hypertension; Z72.89 Other problems related to lifestyle
CPT/HCPCS: 36415; 71020; 80048; 80053; 82947; 83036; 83605; 83880; 84484; 85025; 85379; 85610; 87040; 87070; 87077; 87186; 87205; 87899; 93005; 94640; 94760; 96374; 99284; A9270-GY; G0378; J0456; J1644; J2930; J3411; J7512

== ENCOUNTER 2017-03-31 18:23 | Emergency (ER) | payer BC ==
[2017-03-31 19:43] LABS: Hematocrit 46 % (42-52); Hemoglobin 15.3 g/dl (14.0-18.0); Mean Corpuscular HGB Conc 34 g/dl (31-36); Mean Corpuscular Hemoglobin 30 pg (27-31); Mean Corpuscular Volume 89 fL (80-94); Mean Platelet Volume 9 um3 (7.4-10.4); Red Blood Count 5.09 10^6/ul (4.0-5.4); Red Cell Distribution Width 13 % (10.5-15)
--- NOTE | 2017-03-31 19:50 | RAD ---
Indication: Chest pain. Single frontal view of the chest performed at 1903 hours was reviewed. Comparison is made with previous exam dated November 30, 2016. No mediastinal shift is noted. Heart is of normal size and configuration. Lung forman appear clear. IMPRESSION: NO ACTIVE CARDIOPULMONARY DISEASE IS NOTED.
[2017-03-31 19:56] LABS: BUN/Creatinine Ratio 22.9 (8-20); Calcium 9.1 mg/dL (8.6-10.3); EGFR African American 153.5 (>60); EGFR Non-African American 119.4 (>60); Globulin 2.8 g/dL (2-4); Potassium 4.2 mmol/L (3.5-5.0); Total Bilirubin 0.3 mg/dL (0.2-1.0); Total Protein 6.8 g/dL (6.4-8.9)
[2017-03-31 21:42] VITALS: BP 159/85
--- NOTE | 2017-03-31 22:47 | ED ---
Dante Soto Gabriel, scribed for Osman Torres MD on 03/31/17 at 1856 . HPI Chest Pain - HPI Summary HPI Summary: This patient is a 51 year old M BIBA to [facility] with a chief complaint of CP since 1729. Patient reports SOB, shaking, general malaise, and feeling flushed. Patient states he was sitting on his couch after work drinking etoh when the symptoms began. The symptoms lasted less than 30 minutes. Pt was given ASA and NTG by EMS and feels better. Patient denies nausea - History of Current Complaint Chief Complaint: EDChestPainROMI Time Seen by Provider: 03/31/17 18:38 Hx Obtained From: Patient Onset/Duration: Resolved Timing: Lasting Minutes - <30 Initial Severity: Moderate Current Severity: None Pain Intensity: 0 Pain Scale Used: 0-10 Numeric Chest Pain Radiates: Yes Chest Pain Radiates To:: Shoulder Alleviating Factor(s): NTG 123, Other: - ASA Associated Signs and Symptoms: Positive: Negative - nausea - Additional Pertinent History Primary Care Physician: TANNER - Allergy/Home Medications Allergies/Adverse Reactions: Allergies Allergy/AdvReac Type Severity Reaction Status Date / Time Banana Allergy Difficulty Verified 03/31/17 18:31 Breathing Levofloxacin [From Levaquin] Allergy Difficulty Verified 03/31/17 18:31 Breathing PMH/Surg Hx/FS Hx/Imm Hx Previously Healthy: No Endocrine/Hematology History: Reports: Hx Diabetes - Type II Denies: Hx Anticoagulant Therapy, Hx Thyroid Disease Cardiovascular History: Reports: Hx Hypertension, Other Cardiovascular Problems/ Disorders - 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 Denies: Hx Congestive Heart Failure, Hx Deep Vein Thrombosis, Hx Myocardial Infarction, Hx Pacemaker/ICD Respiratory History: Reports: Hx Asthma, Hx Chronic Obstructive Pulmonary Disease (COPD), Hx Pneumonia - 2012 Denies: Hx Lung Cancer, Hx Pulmonary Embolism GI History: Denies: Hx Gall Bladder Disease, Hx Gastrointestinal Bleed, Hx Ulcer, Hx Urosepsis History: Denies: Hx Kidney Stones, Hx Renal Disease Sensory History: Denies: Hx Contacts or Glasses, Hx Eye Injury, Hx Vision Problem, Hx Deafness , Hx Hearing Aid, Hx Hearing Problem Opthamlomology History: Denies: Hx Contacts or Glasses, Hx Eye Injury, Hx Vision Problem Neurological History: 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 Denies: Hx Dementia, Hx Migraine, Hx Seizures, Hx Transient Ischemic Attacks (TIA) Psychiatric History: Denies: Hx Anxiety, Hx Depression, Hx Schizophrenia, Hx Bipolar Disorder - Cancer History Cancer Type, Location and Year: DENIES Infectious Disease History: No Infectious Disease History: Denies: Hx Clostridium Difficile, Hx Hepatitis, Hx Human Immunodeficiency Virus (HIV), Hx of Known/Suspected MRSA, Hx Shingles, Hx Tuberculosis, Hx Known/ Suspected VRE, Hx Known/Suspected VRSA, History Other Infectious Disease, Traveled Outside the [place] in Last 30 Days - Family History Known Family History: Positive: Cardiac Disease, Hypertension, Diabetes - Social History Alcohol Use: Daily Alcohol Amount: 3-4 mixed drink daily Hx Substance Use: No Substance Use Type: Reports: Marijuana Hx Tobacco Use: No Smoking Status (MU): Light Every Day Tobacco Smoker Type: Cigarettes Amount Used/How Often: "a little less than a pack/day" Length of Time of Smoking/Using Tobacco: 35+ years Have You Smoked in the Last Year: Yes Review of Systems Positive: Other - shaking, general malaise, and feeling flushed Positive: Chest Pain Positive: Shortness Of Breath All Other Systems Reviewed And Are Negative: Yes Physical Exam - Summary Physical Exam Summary: Appearance: The patient is well-nourished in no acute distress and in no acute pain. Skin: The skin is warm and dry and skin color reflects adequate perfusion. HEENT: ~The head is normocephalic and atraumatic. The pupils are equal and reactive. The conjunctivae are clear and without drainage. ~Nares are patent and without drainage. ~Mouth reveals moist mucous membranes and the throat is without erythema and exudate. ~The external ears are intact. The ear canals are patent and without drainage. The tympanic membranes are intact. Neck: the neck is supple with full range of motion and non-tender. There are no carotid bruits. ~There is no neck vein distension. Respiratory: Chest is non-tender. Diffuse decreased breath sounds. Mild wheezing Cardiovascular: Heart is regular rate and rhythm. ~There is no murmur or rub auscultated. ~~There is no peripheral edema and pulses are symmetrical and equal. Abdomen: The abdomen is soft and non-tender. ~There are normal bowel sounds heard in all four quadrants and there is no organomegaly palpated. Musculoskeletal: There is no back tenderness noted. ~Extremities are non-tender with full range of motion. ~There is good capillary refill. ~There is no peripheral edema or calf tenderness elicited. Neurological: Patient is alert and oriented to person, place and time. ~The patient has symmetrical motor strength in all four extremities. ~Cranial nerves are grossly intact. Deep tendon reflexes are symmetrical and equal in all four extremities. Psychiatric: The patient has an appropriate affect and does not exhibit any anxiety or depression. Triage Information Reviewed: Yes Vital Signs On Initial Exam: Initial Vitals Temp Pulse Resp BP Pulse Ox 98.7 F 86 20 188/95 97 03/31/17 18:30 03/31/17 18:30 03/31/17 18:30 03/31/17 18:30 03/31/17 18:30 Vital Signs Reviewed: Yes - Kashif Coma Scale Coma Scale Total: 15 Diagnostics - Vital Signs Vital Signs Temp Pulse Resp BP Pulse Ox 03/31/17 18:30 98.7 F 86 20 188/95 97 - Laboratory Lab Results: Lab Results 03/31/17 03/31/17 03/31/17 Range/Units 19:29 19:29 19:29 WBC 9.0 (3.5-10.8) 10^3/ul RBC 5.09 (4.0-5.4) 10^6/ul Hgb 15.3 (14.0-18.0) g/dl Hct 46 (42-52) % MCV 89 (80-94) fL MCH 30 (27-31) pg MCHC 34 (31-36) g/dl RDW 13 (10.5-15) % Plt Count 129 L (150-450) 10^3/ul MPV 9 (7.4-10.4) um3 Neut % (Auto) 54.0 (38-83) % Lymph % (Auto) 32.6 (25-47) % Tucker % (Auto) 9.4 H (1-9) % Eos % (Auto) 3.7 (0-6) % Baso % (Auto) 0.3 (0-2) % Absolute Neuts (auto) 4.9 (1.5-7.7) 10^3/ul Absolute Lymphs (auto) 2.9 (1.0-4.8) 10^3/ul Absolute Monos (auto) 0.8 (0-0.8) 10^3/ul Absolute Eos (auto) 0.3 (0-0.6) 10^3/ul Absolute Basos (auto) 0 (0-0.2) 10^3/ul Absolute Nucleated RBC 0.01 10^3/ul Nucleated RBC % 0.1 Sodium 137 (133-145) mmol/L Potassium 4.2 (3.5-5.0) mmol/L Chloride 98 L (101-111) mmol/L Carbon Dioxide 33 H (22-32) mmol/L Anion Gap 6 (2-11) mmol/L BUN 16 (6-24) mg/dL Creatinine 0.70 (0.67-1.17) mg/dL Est GFR ( Amer) 153.5 (>60) Est GFR (Non-Af Amer) 119.4 (>60) BUN/Creatinine Ratio 22.9 H (8-20) Glucose 224 H (70-100) mg/dL Lactic Acid 1.0 (0.5-2.0) mmol/L Calcium 9.1 (8.6-10.3) mg/dL Total Bilirubin 0.30 (0.2-1.0) mg/dL AST 22 (13-39) U/L ALT 26 (7-52) U/L Alkaline Phosphatase 30 L (34-104) U/L Troponin I 0.00 (<0.04) ng/mL Total Protein 6.8 (6.4-8.9) g/dL Albumin 4.0 (3.2-5.2) g/dL Globulin 2.8 (2-4) g/dL Albumin/Globulin Ratio 1.4 (1-3) Result Diagrams: 03/31/17 19:29 03/31/17 19:29 Lab Statement: Any lab studies that have been ordered have been reviewed, and results considered in the medical decision making process. - Radiology CXR Radiology Interpretation Completed By: Radiologist - NO ACTIVE CARDIOPULMONARY DISEASE IS NOTED. ED physician has reviewed his report and agrees. - EKG 18:44 Cardiac Rate: NL EKG Rhythm: Sinus Rhythm - 87 BPM EKG Interpretation: incomplete LBBB Chest Pain Course/Dx - Course Course Of Treatment: Mr. Lr had an episode of chest pain while at rest at home. The EMS found him to be quite hypertensive and his symptms improved after ASA and NTG as did his blood pressure. He estimated that he was symptomatic for less than 30 minutes. His EDACS score was 19 and his initial labes were normal. He was being observed and awaiting repeat troponins when he was inadvertenly D/C'd with another patients instructions. He was called immediately when the mistake was discovered but refused to come back. He had had no symptoms since the original episode and felt fine. He promised to F/U with his PMD and to reurn by EMS if his symptoms returned. - Diagnoses Provider Diagnoses: Chest pain Discharge - Discharge Plan Condition: Stable Disposition: HOME Referrals: Dheeraj MOREAU,Daniele Daugherty [Primary Care Provider] - The documentation as recorded by the Dante velázquez Gabriel accurately reflects the service I personally performed and the decisions made by me, Osman Torres MD.
== END 2017-03-31 21:42 | disposition home or self-care (01) ==
LOC: ED 18:23
DX: R07.9 Chest pain, unspecified (principal); E11.9 Type 2 diabetes mellitus without complications; I10 Essential (primary) hypertension; J44.9 Chronic obstructive pulmonary disease, unspecified; F17.210 Nicotine dependence, cigarettes, uncomplicated
CPT/HCPCS: 36415; 71010; 80053; 83605; 84484; 85025; 93005; 99283

== ENCOUNTER 2017-05-10 09:53 | Emergency (ER) | payer BC ==
[2017-05-10 11:15] VITALS: BP 150/77
[2017-05-10] MEDS ORDERED: Albuterol/Ipratropium NEB.SOL* Albuterol 2.5 MG/Ipratropium 0.5 MG 3 ML INH ONE (11:40)
[2017-05-10] MEDS ORDERED: Acetaminophen TAB* 325 MG PO ONE (11:40)
--- NOTE | 2017-05-10 11:47 | ED ---
Complex/Multi-Sys Presentation - HPI Summary HPI Summary: Pt presents with 24 hours body aches, cough, head congestion since yesterday. Pt reports fatigue and decreased appetite. Pt states took Motrin yesterday with improvement. pt denies None today. pt denies sick contact. Pt did not get flu vaccine. Pt has COPD and is Oxygen dependent at night. Pt uses SPirivia and nebs as needed - has not taken neb today. Pt does report white-yellow mucous. Tactile fevers. No rash. + chills. no cp. no change in baseline SOB with activity Pt's medications reviewed this visit. - History Of Current Complaint Chief Complaint: UCRespiratory Time Seen by Provider: 05/10/17 11:33 Hx Obtained From: Patient Onset/Duration: Sudden Onset Timing: Constant Severity Currently: Mild Severity Initially: Mild Character: Unable To Describe - body aches Alleviating Factor(s): Motrin Associated Signs And Symptoms: Positive: Cough, Wheezing, Fever - Allergies/Home Medications Allergies/Adverse Reactions: Allergies Allergy/AdvReac Type Severity Reaction Status Date / Time Banana Allergy Difficulty Verified 05/10/17 11:10 Breathing Levofloxacin [From Levaquin] Allergy Difficulty Verified 05/10/17 11:10 Breathing Home Medications: Home Medications Fluticasone-Salmeterol 250-50* [Advair Diskus 250-50*] 05/10/17 [History] PMH/Surg Hx/FS Hx/Imm Hx Previously Healthy: No Endocrine/Hematology History: Reports: Hx Diabetes - Type II Denies: Hx Anticoagulant Therapy, Hx Thyroid Disease Cardiovascular History: Reports: Hx Hypertension, Other Cardiovascular Problems/ Disorders - 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 Denies: Hx Congestive Heart Failure, Hx Deep Vein Thrombosis, Hx Myocardial Infarction, Hx Pacemaker/ICD Respiratory History: Reports: Hx Asthma, Hx Chronic Obstructive Pulmonary Disease (COPD), Hx Pneumonia - 2012 Denies: Hx Lung Cancer, Hx Pulmonary Embolism GI History: Denies: Hx Gall Bladder Disease, Hx Gastrointestinal Bleed, Hx Ulcer, Hx Urosepsis History: Denies: Hx Kidney Stones, Hx Renal Disease Sensory History: Denies: Hx Contacts or Glasses, Hx Eye Injury, Hx Vision Problem, Hx Deafness , Hx Hearing Aid, Hx Hearing Problem Opthamlomology History: Denies: Hx Contacts or Glasses, Hx Eye Injury, Hx Vision Problem Neurological History: 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 Denies: Hx Dementia, Hx Migraine, Hx Seizures, Hx Transient Ischemic Attacks (TIA) Psychiatric History: Denies: Hx Anxiety, Hx Depression, Hx Schizophrenia, Hx Bipolar Disorder - Cancer History Cancer Type, Location and Year: DENIES Infectious Disease History: No Infectious Disease History: Denies: Hx Clostridium Difficile, Hx Hepatitis, Hx Human Immunodeficiency Virus (HIV), Hx of Known/Suspected MRSA, Hx Shingles, Hx Tuberculosis, Hx Known/ Suspected VRE, Hx Known/Suspected VRSA, History Other Infectious Disease, Traveled Outside the [place] in Last 30 Days - Family History Known Family History: Positive: Cardiac Disease, Hypertension, Diabetes - Social History Alcohol Use: Daily Alcohol Amount: 3-4 mixed drink daily Hx Substance Use: No Substance Use Type: Reports: Marijuana Hx Tobacco Use: No Smoking Status (MU): Light Every Day Tobacco Smoker Type: Cigarettes Amount Used/How Often: "a little less than a pack/day" Length of Time of Smoking/Using Tobacco: 35+ years Have You Smoked in the Last Year: Yes Review of Systems Positive: Fever, Fatigue Eyes: Negative Cardiovascular: Negative Positive: Shortness Of Breath - baseline, Cough All Other Systems Reviewed And Are Negative: Yes Physical Exam Triage Information Reviewed: Yes Vital Signs On Initial Exam: Initial Vitals Temp Pulse Resp BP Pulse Ox 37.4 F 102 16 150/77 90 05/10/17 11:12 05/10/17 11:12 05/10/17 11:12 05/10/17 11:12 05/10/17 11:12 Vital Signs Reviewed: Yes Appearance: Positive: Well-Appearing, No Pain Distress, Well-Nourished Skin: Positive: Warm, Skin Color Reflects Adequate Perfusion, Dry Head/Face: Positive: Normal Head/Face Inspection Eyes: Positive: Normal, EOMI, KRISTOPHER ENT: Positive: Hearing grossly normal, Pharynx normal, Nasal congestion Neck: Positive: Supple, Nontender, No Lymphadenopathy Respiratory/Lung Sounds: Positive: Wheezes, Other - few scattered wheeze mild cough no retractions no accessory muscle use Cardiovascular: Positive: Normal, RRR Abdomen Description: Positive: Nontender, No Organomegaly, Soft Bowel Sounds: Positive: Present Diagnostics - Vital Signs Vital Signs Temp Pulse Resp BP Pulse Ox 05/10/17 11:12 37.4 F 102 16 150/77 90 - Laboratory Lab Statement: Any lab studies that have been ordered have been reviewed, and results considered in the medical decision making process. Re-Evaluation - Re-Evaluation First Eval Change: Improved - Pt states feels much improved following neb lungs clear, less cough Will give Rx zithromax, pred, neb Q4 today, Q4pnr after secretion precaution motrin/apap pt comfortable and in agreement with plan Complex Multi-Symp Course/Dx Assessment/Plan: Pt with fatigue, coarse cough and wheeze x 24 hours + body aches. Pt with COPD, oxygen dependent. Will give neb, APAP, flu swab. - Diagnoses Provider Diagnoses: Bronchitis, COPD (chronic obstructive pulmonary disease) Discharge - Discharge Plan Condition: Stable Disposition: HOME Prescriptions: Albuterol 2.5MG/3ML (0.083%)* [Ventolin 2.5 MG/3 ML NEB.DENIS*] 2.5 mg INH Q4H # 30 neb.denis Azithromycin TAB* [Zithromax TAB (Z-NITESH) 250 mg #6 tabs] 2 tab PO .TODAY, THEN 1 DAILY #1 nitesh predniSONE TAB* [Deltasone TAB*] 50 mg PO DAILY #5 tab Patient Education Materials: Acute Bronchitis (ED), COPD (Chronic Obstructive Pulmonary Disease) (ED) Forms: *Gen. Provider Communication, *Work Release Referrals: Dheeraj MOREAU,Daniele Daugherty [Primary Care Provider] - Additional Instructions: - Take antibiotics exactly as prescribed until gone - Take prednisone as prescribed. - Use your albuterol puffer - 2 puffs every 4 hours today and tomorrow, then every 4 hours as needed. - then as needed - Stay well hydrated - avoid excess caffeine and all alcohol - Eat regular, healthy meals - These infections are spread by secretions - do NOT share eating or drinking utensils - clean items you share with other people such as cell phones, computer mouse, TV remote, computer tablets, etc. AFter yo have been on antibiotics for 2 days, change your pillowcase and toothbrush -Contact your doctor to arrange a follow-up appointment this week. Call your doctor, return here or go to the emergency department with any questions or concerns
== END 2017-05-10 12:49 | disposition home or self-care (01) ==
LOC: UCEAST 09:53
DX: J44.9 Chronic obstructive pulmonary disease, unspecified (principal); F17.210 Nicotine dependence, cigarettes, uncomplicated; Z99.81 Dependence on supplemental oxygen; Z88.3 Allergy status to other anti-infective agents
CPT/HCPCS: 87502; 99212; A9270-GY; G0463

== ENCOUNTER 2017-10-23 14:21 | Emergency (ER) | payer BC ==
[2017-10-23 14:39] VITALS: BP 164/76
--- NOTE | 2017-10-23 15:27 | UC ---
Dorothea Soto Elizabeth, scribed for Kraig Baird MD on 10/23/17 at 1454 . Dizzy HPI HPI Summary: This patient is a 52 year old M presenting to [facility] with a chief complaint of intermittent dizziness since 2 days ago. The patient rates the pain 5/10 in severity. Symptoms aggravated by position change. Symptoms alleviated by nothing. Patient reports lightheadedness, feeling like he might pass out, aches in both shoulders, constant stiffness in his neck, fatigue, and intermittent headache. Patient denies chest pain, shortness of breath, palpitations, ear pain , rhinorrhea, or sore throat. The patient reports that he checked his BP and oxygen levels when he first experienced the dizziness, but did not notice anything abnormal. The patient has hx of type II diabetes and notes that it is not under control. He reports that he checks his blood sugar and takes insulin every day as needed. The patient also has hx of HTN and takes medication for it. The patient uses oxygen at home when he sleeps. The patient has no previous hx of SC. - History Of Current Complaint Chief Complaint: UCDizziness Stated Complaint: DIZZY Time Seen by Provider: 10/23/17 14:35 Hx Obtained From: Patient Onset/Duration: Sudden Onset, Lasting Days - 2 days, Still Present Timing: Intermittent Episode Lasting Severity Initially: Mild Severity Currently: Mild Pain Intensity: 5 Pain Scale Used: 0-10 Numeric Character: Lightheaded Aggravating Factor(s): Position Change Alleviating Factor(s): Nothing Associated Signs And Symptoms: Positive: SOB. Negative: Tinnitus, Chest Pain, Palpitations - Allergies/Home Medications Allergies/Adverse Reactions: Allergies Allergy/AdvReac Type Severity Reaction Status Date / Time banana Allergy Difficulty Verified 10/23/17 14:39 Breathing/Wheezing levofloxacin Allergy Difficulty Verified 10/23/17 14:39 Breathing PMH/Surg Hx/FS Hx/Imm Hx Endocrine History: Diabetes Other Endocrine History: type II diabetes Other Cardiovascular History: no hx of SC Respiratory History: COPD Other History Of: Negative For: HIV, Hepatitis B, Hepatitis C, Anticoagulant Therapy - Surgical History Surgical History: None - Family History Known Family History: Positive: Cardiac Disease, Hypertension, Diabetes - Social History Alcohol Use: Daily Alcohol Amount: 3-4 mixed drink daily Substance Use Type: Marijuana Substance Use Comment - Amount & Last Used: daily Smoking Status (MU): Light Every Day Tobacco Smoker Type: Cigarettes Amount Used/How Often: "a little less than a pack/day" Length of Time of Smoking/Using Tobacco: 35+ years Have You Smoked in the Last Year: Yes Household Exposure Type: Cigarettes - Immunization History Most Recent Influenza Vaccination: doesn't usually get Most Recent Tetanus Shot: has had it doesnt remember when Most Recent Pneumonia Vaccination: unknown Review of Systems Constitutional: Fatigue ENT: Negative - NEGATIVE EAR ACHE, NEGATIVE SORE THROAT Respiratory: Negative - NEGATIVE SHORTNESS OF BREATH Cardiovascular: Negative - NEGATIVE CHEST PAIN, NEGATIVE PALPITATIONS Musculoskeletal: Arthralgia - shoulder aches, Myalgia - neck aches Neurological: Headache, Other - lightheadedness, dizziness All Other Systems Reviewed And Are Negative: Yes Physical Exam - Summary Physical Exam Summary: General: well-appearing, no pain distress Skin: warm, color reflects adequate perfusion, dry Head: normal Eyes: EOMI, KRISTOPHER ENT: normal Neck: supple, nontender Respiratory: CTA, breath sounds present Cardiovascular: RRR Abdomen: soft, nontender Bowel: present Musculoskeletal: normal, strength/ROM intact Neurological: sensory/motor intact, A&O x3 Psychological: affect/mood appropriate Triage Information Reviewed: Yes Vital Signs: Initial Vital Signs Temp 99.5 F 10/23/17 14:35 Pulse 82 10/23/17 14:35 Resp 18 10/23/17 14:35 BP 164/76 10/23/17 14:35 Pulse Ox 91 10/23/17 14:35 Vital Signs Reviewed: Yes Diagnostics - EKG Cardiac Rate: NL - at 81 BPM Cardiac Rhythm: Sinus: Normal Ectopy: None ST Segment: Non-Specific - ST elevation in the anterior and inferior leads similar to EKG 03/31/17 Dizzy Course/Dx - Course Course Of Treatment: NO ANTERIOR CHEST PAIN IN THE CLINIC. DISCUSSED WTHE NEED FOR FURTHER EVALUATION IN THE EMERGENCY DEPARTMENT. THE PATIENT DECLINED AMBULANCE. HE AGREED HE WILL GO DIRECTLY TO THE EMERGENCY DEPARTMENT FOR FURTHER EVALUATION. - Differential Dx/Diagnosis Provider Diagnoses: DIZZINESS Discharge - Sign-Out/Discharge Documenting (check all that apply): Discharge/Admit/Transfer - Discharge Plan Condition: Stable Disposition: HOME Discharge Disposition Comment: discharge home Patient Education Materials: Dizziness (ED) Referrals: Elisha Vuong DO [Primary Care Provider] - Additional Instructions: GO DIRECTLY TO THE EMERGENCY DEPARTMENT FOR FURTHER EVALUATION OF YOUR DIZZINESS. - Billing Disposition and Condition Condition: STABLE Disposition: Home The documentation as recorded by the Dorothea velázquez Elizabeth accurately reflects the service I personally performed and the decisions made by me, Kraig Baird MD.
== END 2017-10-23 15:00 | disposition home or self-care (01) ==
LOC: UCEAST 14:21
DX: R42 Dizziness and giddiness (principal); R06.02 Shortness of breath; E11.9 Type 2 diabetes mellitus without complications; J44.9 Chronic obstructive pulmonary disease, unspecified; Z88.1 Allergy status to other antibiotic agents; Z91.018 Allergy to other foods; Z82.49 Family history of ischemic heart disease and other diseases of the circulatory system; Z83.3 Family history of diabetes mellitus; F17.210 Nicotine dependence, cigarettes, uncomplicated
CPT/HCPCS: 93005; 99212; G0463

== ENCOUNTER 2017-10-23 15:47 | Emergency (ER) | payer BC ==
[2017-10-23] MEDS ORDERED: NS 0.9% 1000 ML* 1,000 ML IV ONE (17:47)
[2017-10-23] MEDS ORDERED: Meclizine TAB* 12.5 MG PO ONE (17:48)
[2017-10-23 18:10] LABS: ABS Basophils 0.1 10^3/ul (0-0.2); ABS Eosinophils 0.2 10^3/ul (0-0.6); ABS Lymphocytes 2.9 10^3/ul (1.0-4.8); ABS Monocytes 0.9 10^3/ul (0-0.8); ABS Neutrophils 4.7 10^3/ul (1.5-7.7); ABS Nucleated RBC 0 10^3/ul; Eosinophil % 2.6 % (0-6); Hematocrit 49 % (42-52); Hemoglobin 16.6 g/dl (14.0-18.0); Lymphocyte % 32.9 % (25-47); Mean Corpuscular HGB Conc 34 g/dl (31-36); Mean Corpuscular Hemoglobin 30 pg (27-31); Mean Corpuscular Volume 88 fL (80-94); Mean Platelet Volume 8.8 um3 (7.4-10.4); Nucleated Red Blood Cells % 0.1; Platelet Count 151 10^3/ul (150-450); Red Blood Count 5.57 10^6/ul (4.00-5.40); Red Cell Distribution Width 13 % (10.5-15); White Blood Count 8.8 10^3/ul (3.5-10.8)
[2017-10-23 18:27] LABS: EGFR Non-African American 139.4 (>60)
--- NOTE | 2017-10-23 19:06 | RAD ---
INDICATION: Dizziness COMPARISON: CT of the brain April 21, 2016 TECHNIQUE: Contiguous axial sections of the brain were obtained from the skull base to the vertex without contrast. FINDINGS: The ventricles, cisterns and sulci are within normal limits. The jackson-white matter differentiation is adequately maintained and there is no sulcal effacement. No significant focal abnormality or mass effect is present. There is no evidence for intracranial hemorrhage. No significant focal osseous abnormality is present. The visualized portion of the paranasal sinuses appear clear. The mastoid air cells are well aerated bilaterally. IMPRESSION: Normal CT of the brain.
--- NOTE | 2017-10-23 19:38 | RAD ---
INDICATION: Dizziness COMPARISON: None. TECHNIQUE: Single AP portable view of the chest was obtained. FINDINGS: Image quality is compromised due to the relative inferiority of a portable chest x-ray. The heart and mediastinum exhibit normal size and contour. The lungs are grossly clear. There is no evidence of a large pleural effusion. Visualized bones are normal for the patient's age. IMPRESSION: No radiographic evidence for acute cardiopulmonary abnormality on this portable chest x-ray.
[2017-10-23 21:23] VITALS: BP 160/99
--- NOTE | 2017-10-23 21:45 | ED ---
Sarah Soto Jade, scribed for Reece Kuo MD on 10/23/17 at 1742 . Dizziness - HPI Summary HPI Summary: Pt is a 52 y/o male sent from who c/o dizziness. He states he has had episodes of dizziness and lightheadedness for 2 days, which is made worse by fast movement of his head. Pt also complains of recent pain in shoulders and back of neck, but it is non-radiating. He denies any LOC, ear pain, ear fullness , tinnitus, cough, runny nose, or N/V. He is able to walk and drive normally. Pt denies having this kind of dizziness before, or a stroke. Pt has a PMHx of DM and COPD. He is a smoker, and smokes half a pack a day. He has a FHx of cardiac disease. - History Of Current Complaint Chief Complaint: EDDizziness Stated Complaint: DIZZY Time Seen by Provider: 10/23/17 17:27 Hx Obtained From: Patient Onset/Duration: Still Present Timing: Days - 2 days ago Severity Currently: None Character: Lightheaded, Dizzy Aggravating Factor(s): Change In Head Position Alleviating Factor(s): Nothing Associated Signs And Symptoms: Negative: Nausea, Vomiting, Tinnitus, Inability to Walk - Allergies/Home Medications Allergies/Adverse Reactions: Allergies Allergy/AdvReac Type Severity Reaction Status Date / Time banana Allergy Difficulty Verified 10/23/17 15:49 Breathing/Wheezing levofloxacin Allergy Difficulty Verified 10/23/17 15:49 Breathing Home Medications: Home Medications Atorvastatin* [Lipitor*] 40 mg PO DAILY 10/23/17 [History Confirmed 10/23/17] Fluticasone-Salmeterol 500-50* [Advair Diskus 500-50*] 1 puff INH BID 10/23/17 [ History Confirmed 10/23/17] Insulin GLARGINE(*) [Lantus(*)] 76 units SUBCUT QPM 10/23/17 [History Confirmed 10/23/17] Lisinopril TAB* [Prinivil TAB*] 40 mg PO DAILY 10/23/17 [History Confirmed 10/23] Tiotropium CAP.INH* [Spiriva CAP.INH*] 1 cap INH QAM 10/23/17 [History Confirmed 10/23/17] amLODIPine TAB* [Norvasc 5 mg TAB*] 5 mg PO DAILY 10/23/17 [History Confirmed ] PMH/Surg Hx/FS Hx/Imm Hx Endocrine/Hematology History: Reports: Hx Diabetes - Type II Denies: Hx Anticoagulant Therapy, Hx Thyroid Disease Cardiovascular History: Reports: Hx Hypertension, Other Cardiovascular Problems/ Disorders - 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 Denies: Hx Congestive Heart Failure, Hx Deep Vein Thrombosis, Hx Myocardial Infarction, Hx Pacemaker/ICD Respiratory History: Reports: Hx Asthma, Hx Chronic Obstructive Pulmonary Disease (COPD), Hx Pneumonia - 2012 Denies: Hx Lung Cancer, Hx Pulmonary Embolism GI History: Denies: Hx Gall Bladder Disease, Hx Gastrointestinal Bleed, Hx Ulcer, Hx Urosepsis History: Denies: Hx Kidney Stones, Hx Renal Disease Sensory History: Denies: Hx Contacts or Glasses, Hx Eye Injury, Hx Vision Problem, Hx Deafness , Hx Hearing Aid, Hx Hearing Problem Opthamlomology History: Denies: Hx Contacts or Glasses, Hx Eye Injury, Hx Vision Problem Neurological History: 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 Denies: Hx Dementia, Hx Migraine, Hx Seizures, Hx Transient Ischemic Attacks (TIA) Psychiatric History: Denies: Hx Anxiety, Hx Depression, Hx Schizophrenia, Hx Bipolar Disorder - Cancer History Cancer Type, Location and Year: DENIES Infectious Disease History: No Infectious Disease History: Denies: Hx Clostridium Difficile, Hx Hepatitis, Hx Human Immunodeficiency Virus (HIV), Hx of Known/Suspected MRSA, Hx Shingles, Hx Tuberculosis, Hx Known/ Suspected VRE, Hx Known/Suspected VRSA, History Other Infectious Disease, Traveled Outside the [place] in Last 30 Days - Family History Known Family History: Positive: Cardiac Disease, Hypertension, Diabetes - Social History Alcohol Use: Daily Alcohol Amount: 3-4 mixed drink daily Hx Substance Use: No Substance Use Type: Reports: Marijuana Substance Use Comment - Amount & Last Used: daily Hx Tobacco Use: No Smoking Status (MU): Heavy Every Day Tobacco Smoker Type: Cigarettes Amount Used/How Often: "a little less than a pack/day" Length of Time of Smoking/Using Tobacco: 35+ years Have You Smoked in the Last Year: Yes Review of Systems ENT: Other - NEGATIVE: ear fullness, tinnitus Negative: Ear Ache, Nasal Discharge Negative: Cough Neurological: Other - Dizziness, lightheadedness, NEGATIVE: LOC All Other Systems Reviewed And Are Negative: Yes Physical Exam - Summary Physical Exam Summary: GENERAL: Patient is a well-developed and nourished M who is lying comfortable in the stretcher. Patient is not in any acute respiratory distress. HEAD AND FACE: Normocephalic. EYES: PERRLA, EOMI x 2. EARS: Hearing grossly intact. MOUTH: Oropharynx within normal limits. NECK: Supple, trachea is midline, no adenopathy, no JVD, no carotid bruit. CHEST: Symmetric, no tenderness at palpation LUNGS: Clear to auscultation bilaterally. No wheezing or crackles. CVS: Regular rate and rhythm, S1 and S2 present, no murmurs or gallops appreciated. ABDOMEN: Soft, non-tender. Bowel sounds are normal. No abdominal abnormal pulsations. EXTREMITIES: Full ROM in all major joints, no edema, no cyanosis or clubbing. NEURO: Alert and oriented x 3. No acute neurological deficits. Speech is normal and follows commands. Cranial nerves II-XII grossly intact, no dysmetria finger to nose, nml heel to small SKIN: Dry and warm. GCS: 15 Triage Information Reviewed: Yes Vital Signs On Initial Exam: Initial Vitals Temp Pulse Resp BP Pulse Ox 98.2 F 80 18 150/98 91 10/23/17 15:49 10/23/17 15:49 10/23/17 15:49 10/23/17 15:49 10/23/17 15:49 Vital Signs Reviewed: Yes Diagnostics - Vital Signs Vital Signs Temp Pulse Resp BP Pulse Ox 10/23/17 15:49 98.2 F 80 18 150/98 91 - Laboratory Result Diagrams: 10/23/17 18:05 10/23/17 18:05 Lab Statement: Any lab studies that have been ordered have been reviewed, and results considered in the medical decision making process. - Radiology CXR Xray Interpretation: No Acute Changes - 17:47: No radiographic evidence for acute cardiopulmonary abnormality on this portable chest x-ray. ED physician reviewed radiology report. Radiology Interpretation Completed By: Radiologist - CT Brain CT CT Interpretation: No Acute Changes - 17:48: Normal CT of the brain. ED physician reviewed radiology report. CT Interpretation Completed By: Radiologist - EKG 17:50 Cardiac Rate: NL - 71 bpm EKG Rhythm: Sinus Rhythm EKG Interpretation: LBBB EKG Comparison: No Significant Change - LBBB is not new when compared to EKG done on 03/31/17. Re-Evaluation - Re-Evaluation First Eval Re-Evaluation Time: 20:25 Change: Improved Comment: Feeling better. Pt will be walked to ensure the symptoms are gone. Second Eval Re-Evaluation Time: 20:35 Change: Improved Comment: Pt's walking test revealed no symptoms. Dizzy Course/Dx - Course Course Of Treatment: Pt is a 52 y/o male sent from who c/o dizziness. He states he has had episodes of dizziness and lightheadedness for 2 days, which is made worse by fast movement of his head. Pt also complains of recent pain in shoulders and back of neck, but it is non-radiating. He denies any LOC, ear pain , ear fullness, tinnitus, cough, runny nose, or N/V. He is able to walk and drive normally. Pt denies having this kind of dizziness before, or a stroke. Pt has a PMHx of DM and COPD. He is a smoker, and smokes half a pack a day. He has a FHx of cardiac disease. The physical exam was normal, including the neuro exam , and the GCS was 15. A CXR and brain CT were normal. An EKG revealed normal rate at 71 bpm, normal rhythm, and LBBB. This EKG had no significant changes when compared to an EKG done on 03/31/17. Labs revealed 2 negative troponins. A re-eval showed the pt improved, and a walking test showed no symptoms. Final dx is dizziness. Pt will be discharged with strict return precautions discussed. - Diagnoses Provider Diagnoses: Dizziness Discharge - Sign-Out/Discharge Documenting (check all that apply): Discharge/Admit/Transfer - Discharge - Discharge Plan Condition: Stable Disposition: HOME Prescriptions: Meclizine TAB* [Antivert 12.5 TAB*] 25 mg PO TID #24 tab Referrals: Elisha Vuong DO [Primary Care Provider] - 3 Days Additional Instructions: RETURN TO THE ED WITH NEW OR WORSENING SYMPTOMS. The documentation as recorded by the Sarah velázquez Jade accurately reflects the service I personally performed and the decisions made by , Reece Kuo MD.
== END 2017-10-23 21:23 | disposition home or self-care (01) ==
LOC: ED 15:47
DX: R42 Dizziness and giddiness (principal); E11.9 Type 2 diabetes mellitus without complications; J44.9 Chronic obstructive pulmonary disease, unspecified; F17.210 Nicotine dependence, cigarettes, uncomplicated; Z82.49 Family history of ischemic heart disease and other diseases of the circulatory system; Z79.4 Long term (current) use of insulin; Z88.3 Allergy status to other anti-infective agents; I44.7 Left bundle-branch block, unspecified
CPT/HCPCS: 36415; 70450; 71045; 80053; 83605; 84484; 85025; 85730; 93005; 96360; 99284; A9270-GY

== ENCOUNTER 2018-09-15 09:38 | Emergency (ER) | payer BC ==
[2018-09-15 09:44] VITALS: BP 140/79
[2018-09-15] MEDS ORDERED: Albuterol/Ipratropium NEB.SOL* Albuterol 2.5 MG/Ipratropium 0.5 MG 3 ML INH ONE (09:50)
--- NOTE | 2018-09-15 10:18 | UC ---
Respiratory Complaint HPI - HPI Summary HPI Summary: CHIEF COMPLAINT and HPI: This is a 53-year-old male with a long history of COPD exacerbation who reports to the urgent care Center with a complaint of 2 days of worsening cough with green sputum production and mild shortness of breath. She is on intermittent home oxygen. He uses this primarily at night. Denies fever, chills, or difficulty breathing. Patient denies chest pain. VITAL SIGNS & SaO2 REVIEWED. Within normal limits unless noted here. PZ=406/79 ; Pulse ox=90 on home oxygen; respiratory rate=26/minute NURSES NOTE REVIEWED. Pt c/o "trouble breathing" w/ exertion and productive cough starting yesterday. Currently on 4L O2 NSC; USES 2-4 L O2 AT HOME. Denies chest pain. No fever/chills. Hx COPD." - History of Current Complaint Chief Complaint: UCRespiratory Stated Complaint: TROUBLE BREATHING Time Seen by Provider: 09/15/18 09:43 Pain Intensity: 0 - Allergies/Home Medications Allergies/Adverse Reactions: Allergies Allergy/AdvReac Type Severity Reaction Status Date / Time banana Allergy Difficulty Verified 09/15/18 09:44 Breathing/Wheezing levofloxacin Allergy Difficulty Verified 09/15/18 09:44 Breathing Home Medications: Home Medications Albuterol 0.5% CONC NEB.DENIS* 1 inh Q6HR PRN 09/15/18 [History Confirmed 09/15/18 ] PMH/Surg Hx/FS Hx/Imm Hx - Additional Past Medical History Additional PMH: PAST MEDICAL HISTORY- small has a long history of COPD and chronic bronchitis. CHRONIC and RECURRENT HEALTH PROBLEM LIST REVIEWED. Information relevant to present complaint: Hypertension, being treated. History of pneumonia and diabetes. VISIT HISTORY REVIEWED: Multiple visits for COPD exacerbation MEDICATIONS & ALLERGIES REVIEWED. HYPERTENSION STATUS: On medication FAMILY HISTORY: Positive for: diabetes SOCIAL HISTORY: Patient is a smoker, lives with his and is retired Previously Healthy: No Other History Of: Negative For: HIV, Hepatitis B, Hepatitis C, Anticoagulant Therapy - Surgical History Surgical History: None - Family History Known Family History: Positive: Cardiac Disease, Hypertension, Diabetes - Social History Alcohol Use: Daily Alcohol Amount: 3-4 mixed drink daily Substance Use Type: Marijuana Substance Use Comment - Amount & Last Used: occasionally Smoking Status (MU): Heavy Every Day Tobacco Smoker Type: Cigarettes Amount Used/How Often: 1/2 PPD Length of Time of Smoking/Using Tobacco: 35+ years Have You Smoked in the Last Year: Yes Household Exposure Type: Cigarettes - Immunization History Most Recent Influenza Vaccination: doesn't usually get Most Recent Tetanus Shot: has had it doesnt remember when Most Recent Pneumonia Vaccination: unknown Review of Systems All Other Systems Reviewed And Are Negative: Yes Constitutional: Positive: Negative Skin: Positive: Negative Respiratory: Positive: Shortness Of Breath, Cough - green sputum for 2 days Cardiovascular: Positive: Negative. Negative: Palpitations Gastrointestinal: Positive: Negative. Negative: Abdominal Pain Genitourinary: Positive: Negative. Negative: Dysuria Is Patient Immunocompromised?: No Physical Exam - Summary Physical Exam Summary: Appearance: The patient is well-appearing, is in no pain or distress, and is well-nourished. Eyes: Conjunctiva are clear. Pupils are equal and reactive to light and accommodation. Extra ocular muscle movement is intact. ENT: The hearing is grossly normal, the pharynx is normal, and the TMs are normal. There is no muffled or hoarse voice. No stridor. Neck: The neck is supple and there is no lymphadenopathy. Respiratory: The chest is non-tender to palpation and without crepitus. The lungs are clear, and there is no respiratory distress. No wheezes, rales or rhonchi. There is an extended expiratory phase bilaterally. Breathing is shallow. Cardiovascular: Heart sounds reveal a regular rate and rhythm. There are no clicks, rubs or murmurs. There are no carotid bruits or thrills. Circulation is grossly intact. Abdomen: The abdomen is soft and nontender. There is no organomegaly. Bowel sounds are present and within normal limits. No point tenderness at McBurneys point. No CVA tenderness. Musculoskeletal: Strength is intact. The patient moves all extremities. Neurological: The patient is alert. Motor and sensory are examination grossly intact. Speech is normal. Psychological: The patient displays age appropriate behavior, and is conversant. GCS=15. Skin: Negative for rashes. PATIENT GIVEN ONE NEBULIZER TREATMENT WITH ALBUTEROL AND IPRATROPIUM. Patient feels much more comfortable. His respiratory rate is now 18. Although his oxygen has not improved, probably because of the opening of small airways. He is breathing is marginally deeper and easier Triage Information Reviewed: Yes Vital Signs: Initial Vital Signs Temp 97.8 F 09/15/18 09:39 Pulse 94 09/15/18 09:39 Resp 26 09/15/18 09:39 BP 140/79 09/15/18 09:39 Pulse Ox 90 09/15/18 09:39 Vital Signs Reviewed: Yes Respiratory Course/Dx - Course Course Of Treatment: MEDICAL DECISION MAKING and PLAN: This is a 53-year-old male with a long history of COPD exacerbation who reports to the urgent care Center with a complaint of 2 days of worsening cough with green sputum production and mild shortness of breath. She is on intermittent home oxygen. He uses this primarily at night. Denies fever, chills, or difficulty breathing. Patient denies chest pain. VITAL SIGNS & SaO2 REVIEWED. Within normal limits unless noted here. HF=731/79 ; Pulse ox=90 on home oxygen; respiratory rate=26/minute After Duo Neb patient lowered oxygen to 2 liters per minute; pulse ox was 88. However, patient feels more comfortable. Respiratory rate has decreased to 18 per minute. The patient is sitting, breathing easily and walks without distress. Diagnosis is exacerbation of COPD. The patient was given a Z-Shahriar and prednisone 3 times a day for 3 days. The patient was also told about ipratropium, the possibility of metastases to his home albuterol. MEDICATIONS REVIEWED. HYPERTENSION STATUS REVIEWED WITH PATIENT IF blood pressure is above 120/80. 140/79 Patient is being treated for hypertension, and will follow up with PMD within 4 weeks. ed BP. - Differential Dx/Diagnosis Differential Diagnosis/HQI/PQRI: Bronchitis, Pulmonary Edema, Lower Resp Infection Provider Diagnosis: COPD exacerbation Discharge - Sign-Out/Discharge Documenting (check all that apply): Patient Departure All imaging exams completed and their final reports reviewed: No Studies - Discharge Plan Condition: Stable Disposition: HOME Prescriptions: Azithromycin TAB* [Zithromax TAB*] 250 mg PO DAILY #6 tab MDD 1 predniSONE [Prednisone 20 MG TAB] 20 mg PO TID #9 tab MDD 3 Patient Education Materials: COPD (Chronic Obstructive Pulmonary Disease) (DC) Referrals: Elisha Vuong DO [Primary Care Provider] - Additional Instructions: WE DISCUSSED: PLEASE SEEK CARE AT THE EMERGENCY DEPARTMENT IF SYMPTOMS WORSEN OR IF NEW SYMPTOMS DEVELOP. FOLLOW UP WITH YOUR PRIMARY CARE PHYSICIAN IF CONDITION CONTINUES BEYOND 3 DAYS WITHOUT IMPROVEMENT. YOUR DIAGNOSIS IS: Worsening of your COPD and chronic bronchitis YOUR PRESCRIPTION RECOMMENDATION is: Zithromax antibiotic and prednisone for 3 days OTHER INSTRUCTIONS: Hypertension Discharge Instructions: Your blood pressure reading today was 140/79, indicating HYPERTENSION. Follow- up with your primary care provider within 4 weeks for blood pressure check and appropriate recommendations and treatment, as needed. I added IPRATROPIUM to your albuterol today. Both medicines together helped you. Use use albuterol for any worsening of breathing or increase in cough. Recheck at any time for chest pain, shortness of breath, fever, worsening cough. - Billing Disposition and Condition Condition: STABLE Disposition: Home
== END 2018-09-15 10:43 | disposition home or self-care (01) ==
LOC: UCEAST 09:38
DX: J44.1 Chronic obstructive pulmonary disease with (acute) exacerbation (principal); Z99.81 Dependence on supplemental oxygen; E11.9 Type 2 diabetes mellitus without complications; I10 Essential (primary) hypertension; Z88.1 Allergy status to other antibiotic agents; Z91.018 Allergy to other foods; F17.210 Nicotine dependence, cigarettes, uncomplicated
CPT/HCPCS: 99212; A9270-GY; G0463

== ENCOUNTER 2019-03-05 13:38 | Inpatient (IN) | payer BC, OTHER ==
[2019-03-05] MEDS ORDERED: Albuterol/Ipratropium NEB.SOL* Albuterol 2.5 MG/Ipratropium 0.5 MG 3 ML INH ONE (13:56)
--- NOTE | 2019-03-05 13:59 | ED ---
Shortness of Breath - HPI Summary HPI Summary: Pt is a 53 y/o M presenting to the ED with a chief complaint of shortness of breath. Pt is always on oxygen d/t COPD, but his SOB has worsened over the past few days. His SaO2 was in the 70s at home on oxygen, and went up into the 80s after his nebulizer tx. He reports cough and occasionally being disoriented. He denies CP, chills, nausea, vomiting, fever, or hemoptysis. Medications reviewed. Allergies noted. - History of Current Complaint Chief Complaint: EDShortnessOfBreath Time Seen by Provider: 03/05/19 13:46 Hx Obtained From: Patient Onset/Duration: Gradual Onset, Lasting Days, Still Present Timing: Constant Current Severity: Moderate Dyspnea At: Rest Aggravating Factors: Nothing Alleviating Factors: Nothing Associated Signs & Symptoms: Cough (Nonproductive), Wheezing - Allergy/Home Medications Allergies/Adverse Reactions: Allergies Allergy/AdvReac Type Severity Reaction Status Date / Time banana Allergy Difficulty Verified 09/15/18 09:44 Breathing/Wheezing levofloxacin Allergy Difficulty Verified 09/15/18 09:44 Breathing Home Medications: Home Medications Insulin Lispro Protamin/Lispro [Humalog Mix 75-25 Vial] 40 unit SUBCUT BID 03/05 [History Confirmed 03/05/19] amLODIPine TAB* [Norvasc 5 mg TAB*] 2.5 mg PO DAILY 03/05/19 [History Confirmed 03/05/19] PMH/Surg Hx/FS Hx/Imm Hx Previously Healthy: Yes Endocrine/Hematology History: Reports: Hx Diabetes - Type II Denies: Hx Anticoagulant Therapy, Hx Thyroid Disease Cardiovascular History: Reports: Hx Hypertension, Other Cardiovascular Problems/ Disorders - 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 Denies: Hx Congestive Heart Failure, Hx Deep Vein Thrombosis, Hx Myocardial Infarction, Hx Pacemaker/ICD Respiratory History: Reports: Hx Asthma, Hx Chronic Obstructive Pulmonary Disease (COPD), Hx Pneumonia - 2012 Denies: Hx Lung Cancer, Hx Pulmonary Embolism GI History: Denies: Hx Gall Bladder Disease, Hx Gastrointestinal Bleed, Hx Ulcer, Hx Urosepsis History: Denies: Hx Kidney Stones, Hx Renal Disease Sensory History: Denies: Hx Contacts or Glasses, Hx Eye Injury, Hx Vision Problem, Hx Deafness , Hx Hearing Aid, Hx Hearing Problem Opthamlomology History: Denies: Hx Contacts or Glasses, Hx Eye Injury, Hx Vision Problem Neurological History: 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 Denies: Hx Dementia, Hx Migraine, Hx Seizures, Hx Transient Ischemic Attacks (TIA) Psychiatric History: Denies: Hx Anxiety, Hx Depression, Hx Schizophrenia, Hx Bipolar Disorder - Cancer History Cancer Type, Location and Year: DENIES Infectious Disease History: No Infectious Disease History: Denies: Hx Clostridium Difficile, Hx Hepatitis, Hx Human Immunodeficiency Virus (HIV), Hx of Known/Suspected MRSA, Hx Shingles, Hx Tuberculosis, Hx Known/ Suspected VRE, Hx Known/Suspected VRSA, History Other Infectious Disease, Traveled Outside the [place] in Last 30 Days - Family History Known Family History: Positive: Cardiac Disease, Hypertension, Diabetes - Social History Alcohol Use: Daily Alcohol Amount: 3-4 mixed drink daily Hx Substance Use: No Substance Use Type: Reports: Marijuana Substance Use Comment - Amount & Last Used: occasionally Hx Tobacco Use: No Smoking Status (MU): Heavy Every Day Tobacco Smoker Type: Cigarettes Amount Used/How Often: 1/2 PPD Length of Time of Smoking/Using Tobacco: 35+ years Have You Smoked in the Last Year: Yes Review of Systems Negative: Fever, Chills Negative: Chest Pain Positive: Shortness Of Breath, Cough. Negative: Other - hemoptysis Negative: Vomiting, Nausea Neurological: Other - occasional disorientation All Other Systems Reviewed And Are Negative: Yes Physical Exam - Summary Physical Exam Summary: Constitutional: Well-developed, Well-nourished, Alert. (-) Distressed Skin: Warm, Dry HENT: Normocephalic; Atraumatic Eyes: Conjunctiva normal Neck: Musculoskeletal ROM normal neck. (-) JVD, (-) Stridor, (-) Tracheal deviation Cardio: Rhythm regular, rate normal, Heart sounds normal; Intact distal pulses; Radial pulses are 2+ and symmetric. (-) Murmur Pulmonary/Chest wall: Speaking in full sentences. Wheezing in all lung forman. Mildly decreased air entry bilaterally. No peripheral edema. Abd: Soft, (-) tenderness, (-) Distension, (-) Guarding, (-) Rebound Musculoskeletal: (-) Edema Lymph: (-) Cervical adenopathy Neuro: Alert, Oriented x3 Psych: Mood and affect Normal Triage Information Reviewed: Yes Vital Signs On Initial Exam: Initial Vitals Temp Pulse Resp BP Pulse Ox 98.3 F 97 18 127/83 88 03/05/19 13:41 03/05/19 13:41 03/05/19 13:41 03/05/19 13:41 03/05/19 13:41 Vital Signs Reviewed: Yes Procedures - Sedation Patient Received Moderate/Deep Sedation with Procedure: No Diagnostics - Vital Signs Vital Signs Temp Pulse Resp BP Pulse Ox 03/05/19 13:41 98.3 F 97 18 127/83 88 - Laboratory Result Diagrams: 03/05/19 14:12 03/05/19 14:12 Lab Statement: Any lab studies that have been ordered have been reviewed, and results considered in the medical decision making process. - Radiology CXR Radiology Interpretation Completed By: Radiologist Summary of Radiographic Findings: Patchy bilateral airspace opacification is concerning for pneumonia. In this patient, a current smoker, imaging to radiographic resolution and annual screening chest CT should be performed. ED physician has reviewed this report. - EKG 1403 Cardiac Rate: NL - 92bpm EKG Rhythm: Sinus Rhythm ST Segment: Normal Ectopy: None Summary of EKG Findings: EKG at 1403 shows NSR at 92bpm with LBBB and no criteria for STEMI. ED physician has reviewed and interpreted this EKG. Re-Evaluation - Re-Evaluation 1st re-eval Re-Evaluation Time: 14:45 Change: Improved Comment: Pt feels better after his breathing tx. However, pCO2 is 91, so pt will be placed on BiPAP. 2nd re-eval Re-Evaluation Time: 15:27 Change: Improved Comment: Pt is improved on BiPAP. Course/Dx - Course Course Of Treatment: Patient is here with a COPD exacerbation. Patient's had worsening oxygen requirement at home. Patient was given a DuoNeb here with improvement in his symptoms. Patient had a VBG performed which showed a PCO2 of 91. Patient's blood gas looks chronic in nature. Patient was placed on BiPAP for his hypercapnia. Patient also has a mildly elevated troponin which is likely demand in nature. Patient had no EKG changes. Patient chest x-ray showed possible pneumonia so he was treated with antibiotics. Patient is admitted to hospitalist - Diagnoses Provider Diagnoses: PNA (pneumonia), COPD exacerbation, Hypercapnemia, Hypoxemia - Critical Care Time Critical Care Time: 30-74 min - 35min Discharge ED - Sign-Out/Discharge Documenting (check all that apply): Patient Departure - Discharge Plan Condition: Stable Disposition: ADMITTED TO [facility] Referrals: Elisha Vuong DO [Primary Care Provider] - - Billing Disposition and Condition Condition: STABLE Disposition: Admitted to [facility] - Attestation Statements Document Initiated by Rocio: Yes Documenting Scribe: Queenie Hickman Provider For Whom Rocio is Documenting (Include Credential): Ned Walker MD. Scribe Attestation: Queenie Soto, scribed for Ned Walker MD. on 03/05/19 at 1645. Scribe Documentation Reviewed: Yes Provider Attestation: The documentation as recorded by the Queenie velázquez accurately reflects the service I personally performed and the decisions made by , Ned Walker MD. Status of Scribe Document: Viewed Consult Consult: [id number] - I spoke with Dr. Terrell who accepts the pt for admission.
[2019-03-05] MEDS ORDERED: methylPREDNISolone 125 MG* 2 ML VIAL IV ONE (14:10)
--- OUTSIDE RECORDS SUMMARY | 2019-03-05 14:14 | XMS REPORT | Continuity of Care Document ---
:1965 External Reference #:[id number] Author Name Bran Ching MD (transmitted by agent of provider Reina Solano) Address [address] [place] [id number] Care Team Providers Name Role Phone Elisha Vuong DO - Family Care Team Information [employer] [phone] Medicine Problems Active Problems Provider Date Chronic obstructive lung disease Araceli Rodriguez MD Onset: 07/10/2015 Disturbance in sleep behavior Araceli Rodriguez MD Onset: 07/10/2015 Tobacco user Araceli Rodriguez MD Onset: 07/10/2015 Obstructive sleep apnea syndrome Araceli Rodriguez MD Onset: 09/07/2015 Obesity Araceli Rodriguez MD Onset: 09/07/2015 Social History Type Date Description Comments Sex Unknown ETOH Use Currently consumes 3 rum and cokes alcohol daily, past 4 days only 3 drinks, cutting back Tobacco Use Start: Unknown Patient is a current less than 1/PPD - had smoker, smokes every Nicotine gum but not day using, 6-7 daily Recreational Drug Use Current Drug User occasional marijuana Smoking Status Reviewed: 02/01/19 Patient is a current less than 1/PPD - had smoker, smokes every Nicotine gum but not day using, 6-7 daily Exercise Type/Frequency Just at work Allergies, Adverse Reactions, Alerts Active Allergies Reaction Severity Comments Date Levaquin allergic rxn 07/10/2015 Banana Extract difficulty breathing Severe banana 08/16/2017 Inactive Allergies NKDA 07/10/2015 Medications Active Medications SIG Qnty Indications Ordering Date Provider Janumet XR 1 tablet once 30tabs E11.69 Bran Ching MD 02/01/2019 100-1000mg daily in the Tablets ER 24HR morning Humalog Mix 75/25 45 units twice 30ml E11.69 Bran Ching MD 10/05/2018 Kwikpen daily with meals, mdd 100 (75-25)100Unit/ML Supn Spiriva Handihaler 1 unit inhalation Unknown 07/09/2015 daily 18mcg Capsules Advair Diskus inhale one puff by Unknown 07/09/2015 mouth twice daily 500-50mcg/Dose Aerosol Albuterol Sulfate every 4-6 hours as Unknown 07/09/2015 needed Nebulizer Oxygen please use o2 at Unknown Misc 2l/min at night and prn days Amlodipine Besylate 1 by mouth every Unknown 5mg day Tablets Lisinopril 1 by mouth every Unknown 40mg Tablets day Proventil HFA inhale two puffs Unknown by mouth four 108(90Base) mcg/Act times a day as Aerosol needed Atorvastatin Calcium 1 by mouth every Unknown day 40mg Tablets Accu-Check Crystal Chem check blood sugars Unknown Strips 3 times a day Misc Accu-Chek Softclix use with blood Unknown Lancets glucose testing Misc Pen [place] use twice daily Unknown 31G X 5 mm Misc History Medications Novolog Mix 70/30 30 units twice 30ml E11.69 Bran Ching 09/28/2018 - Prefilled Flexpen daily 10/05/2018 (70-30)100Unit/ML Supn Jardiance 10mg by mouth 30tabs E11.69 Bran Ching 09/28/2018 - 10mg Tablets daily Unknown Metformin HCL ER 2 tablets by 60tabs Bran Ching 09/28/2018 - 750mg Tablets mouth every day 02/01/2019 ER 24HR Immunizations Description No Information Available Vital Signs Date Vital Result Comment 02/01/2019 11:41am Height 67.25 inches 5'7.25" Weight 230.00 lb Heart Rate 97 /min BP Systolic Sitting 155 mmHg left arm, reg cuff BP Diastolic Sitting 84 mmHg left arm, reg cuff BMI (Body Mass Index) 35.8 kg/m2 09/28/2018 10:15am Height 67.25 inches 5'7.25" Weight 232.00 lb w/ shoes Heart Rate 95 /min BP Systolic Sitting 142 mmHg BP Diastolic Sitting 87 mmHg BMI (Body Mass Index) 36.1 kg/m2 Results Description No Information Available Procedures Description No Information Available Medical Devices Description No Information Available Encounters Type Date Location Provider Dx Diagnosis Office Visit 09/28/2018 [facility] Bran Ching MD E11.69 Type 2 diabetes 11:00a [facility] mellitus with other specified complication I10 Essential (primary) hypertension Z79.4 group home (current) use of insulin E78.5 Hyperlipidemia, unspecified Assessments Date Code Description Provider 02/01/2019 E11.69 Type 2 diabetes mellitus with other specified Bran Ching MD complication 02/01/2019 Z79.4 group home (current) use of insulin Bran Ching MD 02/01/2019 R68.82 Decreased libido Bran Ching MD 09/28/2018 E11.69 Type 2 diabetes mellitus with other specified Bran Ching MD complication 09/28/2018 I10 Essential (primary) hypertension Bran Ching MD 09/28/2018 Z79.4 group home (current) use of insulin Bran Ching MD 09/28/2018 E78.5 Hyperlipidemia, unspecified Bran Ching MD Plan of Treatment Future Appointment(s):05/07/2019 8:00 am - Bran Ching MD at [facility]03/04/2019 9:30 am - Araceli Rodriguez MD at [facility]02/01/2019 - Bran Ching MDE11.69 Type 2 diabetes mellitus with other specified complicationNew Medication:Janumet XR 100-1000 mg - 1 tablet once daily in the morningInstructions:1. Stop metformin. 2. Start Janumet 100/1000mg once daily in the morning. 3. Continue Humalog 75/25 at 45 units twice daily with meals. 4. Fasting blood tests at your convenience. 5. Return in 3 months.Z79.4 group home (current) use of kmbdlzpC44.82 Decreased libido Functional Status Description No Information Available Mental Status Description No Information Available Referrals Description No Information Available
[2019-03-05 14:24] LABS: ABS Basophils 0.1 10^3/ul (0-0.2); ABS Eosinophils 0.1 10^3/ul (0-0.6); ABS Lymphocytes 1.7 10^3/ul (1.0-4.8); ABS Neutrophils 3.1 10^3/ul (1.5-7.7); Eosinophil % 0.9 %; Hematocrit 46 % (42-52); Lymphocyte % 28.7 %; Mean Corpuscular HGB Conc 33 g/dL (31-36); Mean Corpuscular Hemoglobin 29 pg (27-31); Mean Corpuscular Volume 88 fL (80-94); Mean Platelet Volume 8.1 fL (7.4-10.4); Platelet Count 103 10^3/uL (150-450); Red Blood Count 5.23 10^6 /uL (4.18-5.48); Red Cell Distribution Width 14 % (10-15)
[2019-03-05 14:46] LABS: ALT 31 U/L (7-52); AST 28 U/L (13-39); Albumin 3.7 g/dL (3.2-5.2); Albumin/Globulin Ratio 1.3 (1-3); Alkaline Phosphatase 37 U/L (34-104); BUN/Creatinine Ratio 30.4 (8-20); Blood Urea Nitrogen 17 mg/dL (6-24); Calcium 9.1 mg/dL (8.6-10.3); Chloride 92 mmol/L (101-111); EGFR African American 185.4 (>60); EGFR Non-African American 153.2 (>60); Globulin 2.9 g/dL (2-4); Glucose 180 mg/dL (70-100); Potassium 4.7 mmol/L (3.5-5.0); Sodium 137 mmol/L (135-145); Total Protein 6.6 g/dL (6.4-8.9)
[2019-03-05 14:53] LABS: Anion Gap 3 mmol/L (2-11); CO2 Carbon Dioxide 42 mmol/L (22-32)
[2019-03-05] MEDS ORDERED: Aspirin 81 mg CHEW TAB* 81 MG TAB.CHEW PO ONE (15:23)
[2019-03-05 15:27] LABS: Troponin I 0.04 ng/mL (<0.04)
[2019-03-05] MEDS ORDERED: Azithromycin 500 mg/250 ml NS 500 MG/250 ML BAG IVPB ONE (15:30)
[2019-03-05] MEDS ORDERED: cefTRIAXone(*) 1 GM in NS 0.9% 50 ML* 50 ML IVPB ONE (15:30)
[2019-03-05] MEDS ORDERED: Dextrose 50% VIAL 50 ml IV PUSH PRN (17:03)
[2019-03-05] MEDS ORDERED: Al Hydrox/Mg Hydrox/Simet LIQ* 30 ML UDC PO PRN (17:17)
[2019-03-05] MEDS ORDERED: Senna TAB 8.6 mg* TAB PO PRN (17:17)
[2019-03-05] MEDS ORDERED: Ondansetron INJ* 2 MG/ML VIAL IV PRN (17:17)
[2019-03-05] MEDS ORDERED: Acetaminophen TAB* 325 MG PO PRN (17:17)
[2019-03-05 18:10] LABS: Troponin I 0.05 ng/mL (<0.04)
--- NOTE | 2019-03-05 18:34 | HP ---
HISTORY AND PHYSICAL: ADDENDUM: After initial H and P was dictated, while the patient was in the ED awaiting admission, his oxygen saturation dropped to 78% despite being on 10 L of oxygen. The patient was not tolerating oxygen in the nasal cannula. Therefore, the patient was requiring Vapotherm. Because of this, the patient will be admitted to the ICU as this is not available on the floor. The patient will be admitted inpatient to ICU. BiPAP overnight is still planned. ANA CRISTINA SÁNCHEZ [id number]/[facility] #: [id number] MTDKiya
[2019-03-05] MEDS ORDERED: Albuterol/Ipratropium NEB.SOL* Albuterol 2.5 MG/Ipratropium 0.5 MG 3 ML INH SCH (19:00)
[2019-03-05] MEDS: Mometasone/Formoter 200/5 MDI INH SCH (20:15)
[2019-03-05] MEDS: Albuterol/Ipratropium NEB.SOL* Albuterol 2.5 MG/Ipratropium 0.5 MG 3 ML INH SCH (20:15)
--- NOTE | 2019-03-05 20:23 | HP ---
ADDENDUM NOW INCLUDED ON THIS REPORT CC: Dr. Vuong* HISTORY AND PHYSICAL: DATE OF ADMISSION: 03/05/19 PRIMARY CARE PROVIDER: Dr. Vuong. ATTENDING PHYSICIAN WHILE IN THE HOSPITAL: Dr. Spring Saucedo * (dictated by ANA CRISTINA Cortes). CHIEF COMPLAINT: Worsening shortness of breath. HISTORY OF PRESENT ILLNESS: Cr Lr is a 53-year-old white male with past medical history significant for COPD, diabetes mellitus type 2, ALEJANDRO, and hypertension who presented to the emergency department today for worsening shortness of breath with exertion. The patient is prescribed to use 2 or 3 L of oxygen both at rest and with exertion. However, for at least the last 2 to 3 months, he has been slowly increasing his oxygen that he has been using at rest due to increasingly worsening shortness of breath with exertion. However, the patient admits to me that he has not been using his oxygen when he exerts himself at all. He uses his oxygen while he is resting at home and overnight while he is sleeping at 3 L rate; however, he does not use the concentrator when he is walking around his home nor does he use oxygen tanks when he goes out such as to the grocery store because "it is too much of a hassle." The patient is supposed to be using a CPAP at night; however, he tells me his insurance "took it away" due to not using it for 8 hours every night. The patient has had slow progression of productive cough over the last 2 to 3 months ; however, he does not bring up any sputum. His shortness of breath at rest has been overall unchanged during this period of time. He denies dizziness or lightheadedness at this time, but admits he does feel this intermittently. He denies fever, chills, chest pain, racing heart rate, or palpitations. He admits to having headaches in the morning frequently. He additionally denies dysuria, diarrhea, nausea, vomiting, or abdominal pain. The patient reports that when he uses his albuterol nebulizer for his acute shortness of breath/wheezing he does not find much relief from it. Additionally , he follows with Dr. Ching for management of his diabetes. ED COURSE: The patient arrived to the emergency department. His oxygen saturation was 88% on 6 L. His temperature is 98.3 degrees Fahrenheit, pulse 97 , respiratory rate 18, and blood pressure 127/83. In the emergency department, the patient received one DuoNeb, 324 mg p.o. aspirin, 500 mg of IV azithromycin , 1 g of IV ceftriaxone as well as 125 mcg of IV Solu- Medrol. His VBG demonstrated a pCO2 of 91 and the hospitalists were asked to evaluate the patient for admission. PAST MEDICAL HISTORY: 1. COPD, prescribed 2 to 3 L of oxygen. 2. Diabetes mellitus type 2. 3. ALEJANDRO, not using CPAP. 4. Hyperlipidemia. 5. Hypertension. PAST SURGICAL HISTORY: Denies. HOME MEDICATIONS: 1. Advair Diskus 2 puffs inhaled b.i.d. 2. Albuterol nebulized solution 2 puffs inhaled q.4 hours p.r.n. for shortness of breath/wheezing. 3. Lipitor 40 mg p.o. daily. 4. Amlodipine 7.5 mg p.o. daily. 5. Lisinopril 40 mg p.o. daily. 6. Lispro 75/25, 40 units subcu b.i.d. 7. Spiriva 1 cap inhaled daily. ALLERGIES: Difficulty breathing/wheezing to banana, difficulty breathing to LEVOFLOXACIN. FAMILY HISTORY: Father at age 67 due to cirrhosis related to alcohol use. Mother is living at age 82 and she has COPD. Denies family history of MT, stroke, or malignancy. SOCIAL HISTORY: The patient is currently on disability. 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 He is and lives with his girlfriend, Roro Moreno. He would like Roro to make his medical decisions for him should he be unable to do so for himself. Her phone number is [phone]. He does not have any kids. He has been smoking 1 to 2 packs per day since the age of 17. More recently, he has been smoking 1 pack per day. He drinks 9 alcoholic beverages per week which are typically vodka. He smokes marijuana daily. REVIEW OF SYSTEMS: An 11-point review of systems was completed, and all pertinent positives and negatives are above in the HPI. All other systems are negative. PHYSICAL EXAMINATION GENERAL: An obese white male, appears older than stated age, sitting upright on the emergency department stretcher, appearing comfortable, in no acute distress, using BiPAP. HEENT: Eyes: PERRLA. Sclerae anicteric. ENT: Poor dentition. Mucous membranes are moist. NECK: Supple without JVD. LUNGS: Auscultated without BiPAP use. Rhonchi in the bilateral lung bases and bilateral midlung forman; otherwise, no wheezing or crackles. No cough during exam. CHEST: No use of accessory muscles with respirations and chest expansion is symmetrical with aspiration. CARDIO: Regular rate and rhythm without murmurs, rubs, or gallops. ABDOMEN: Soft, nontender, nondistended. No hepatosplenomegaly appreciated. EXTREMITIES: No clubbing, cyanosis, or edema. No calf tenderness. NEUROLOGIC: The patient is alert and oriented x3. No focal deficits. Able to move all extremities. No tremors. SKIN: Skin is warm, dry, and intact. DIAGNOSTIC STUDIES/LAB DATA: White blood cell 6, hemoglobin 15, hematocrit 46 , platelet count 103. Sodium 137, potassium 4.7, chloride 92, carbon dioxide 42 , anion gap 3, BUN 17, creatinine 0.56, glucose 180. Troponin 0.04. VBG, pH 7.32, pCO2 of 91, pO2 of 55, HCO3 of 37.2, O2 sat 88.8. VBG base excess 16.1. Chest x-ray, impression: Patchy bilateral airspace opacification concerning for pneumonia in this patient, a current smoker. EKG: Normal sinus rhythm, rate 102 beats per minute, no ST depressions or elevations. There are T-wave inversions in V1 and V2, of which V1 inversion is consistent with prior EKG. ASSESSMENT AND PLAN: Cr Lr is a 53-year-old white male with past medical history significant for chronic obstructive pulmonary disease, diabetes mellitus type 2, obstructive sleep apnea, hypertension, and hyperlipidemia who presents to the emergency department due to progressive shortness of breath with exertion x2 to 3 months and who was found to be hypercapnic. The patient will be admitted on observation for: 1. Progressive chronic obstructive pulmonary disease with hypercapnia. The patient's VBG and BMP demonstrate CO2 retention. I believe this patient would benefit greatly from BiPAP overnight and considering he has not been able to use his CPAP overnight due to compliance and as his insurance will not be covering it due to poor compliance. However, the patient's poor adherence to use of his continuous oxygen with exertion has certainly been contributing to this presentation. He and I had a long discussion regarding the importance of adherence to his prescribed oxygen use of 2 to 3 L during the day with exertion and rest. However, during this hospitalization, this may change. I have ordered the BiPAP overnight and perhaps this will qualify the patient for use of this at home. It is possible that he has a chronic obstructive pulmonary disease exacerbation secondary to pneumonia as the chest x-ray demonstrates a right upper lobe consolidation; however, I do believe the presentation to be a very slow progression due to his poor adherence. He did receive ceftriaxone and azithromycin in the emergency department. I am going to perform a chest CT to further evaluate this consolidation and determine if further antibiotics are necessary while he is on the floor. He does not have symptoms and he is afebrile. He did receive 125 mg of Solu-Medrol in the emergency department. It will likely be of benefit for the patient to continue oral prednisone during for a short course. I will order q.4 hour DuoNebs while awake and continue his home maintenance chronic obstructive pulmonary disease inhalers as well. 2. Hypertension. The patient has been normotensive in the emergency department. I will continue his home lisinopril and amlodipine. 3. Hyperlipidemia. I will continue the patient's home Lipitor. 4. Diabetes mellitus type 2. The patient is on 75/25 insulin lispro at home 40 units subcu b.i.d. While he is in the hospital, I will order Humulin 70/30 units subcu b.i.d. as well as a lispro sliding scale. I will order an A1c for tomorrow and a carbohydrate consistent diet. Fingersticks a.c. 5. Elevated troponin. The patient had a minimally elevated troponin of 0.04. He did have an isolated new T-wave inversion in lead V2. I will repeat another troponin and another EKG and follow this. I do believe that his minimal troponinemia is likely secondary to ischemic demand of his poor respiratory status. 6. FEN. Electrolytes within normal limits. No further fluids needed at this time. Diet is carbohydrate consistent diet. 7. Code status. The patient is full code. 8. DVT prophylaxis. The patient has a DVT risk score of 2 and I have ordered 40 units subcu Lovenox daily. TIME SPENT: Approximately 50 minutes were spent on this admission, approximately half this time was spent at the bedside evaluating the patient and discussing the plan of care. This case has been reviewed with my attending, Dr. Spring Saucedo, and she agrees with this plan of care. ANA CRISTINA CORTES ADDENDUM: After initial H and P was dictated, while the patient was in the ED awaiting admission, his oxygen saturation dropped to 78% despite being on 10 L of oxygen. The patient was not tolerating oxygen in the nasal cannula. Therefore, the patient was requiring Vapotherm. Because of this, the patient will be admitted inpatient to the ICU as BiPAP is not available on the floor. BiPAP overnight is still planned. ANA CRISTINA CORTES [id number]/[facility] #: [id number]/[facility] #: [id number] BETH
[2019-03-05] MEDS: Insulin LISPRO* 1 UNITS UNIT SUBCUT SCH (21:05)
[2019-03-05] MEDS: Enoxaparin(*) 40 MG/0.4 ML SYR SUBCUT SCH (21:13)
[2019-03-06 04:31] LABS: ABS Lymphocytes 0.5 10^3/ul (1.0-4.8); ABS Monocytes 0.1 10^3/ul (0-0.8); ABS Neutrophils 2.6 10^3/ul (1.5-7.7); Hematocrit 45 % (42-52); Hemoglobin 14.4 g/dL (14.0-18.0); Lymphocyte % 16.8 %; Mean Corpuscular HGB Conc 32 g/dL (31-36); Mean Corpuscular Hemoglobin 29 pg (27-31); Mean Corpuscular Volume 89 fL (80-94); Mean Platelet Volume 8.5 fL (7.4-10.4); Nucleated Red Blood Cells % 0.3; Platelet Count 94 10^3/uL (150-450); Red Blood Count 5.06 10^6 /uL (4.18-5.48); Red Cell Distribution Width 14 % (10-15); White Blood Count 3.3 10^3/uL (3.5-10.8)
[2019-03-06 04:46] LABS: Calcium 9.1 mg/dL (8.6-10.3); EGFR African American 132.3 (>60); EGFR Non-African American 109.4 (>60)
[2019-03-06] MEDS: Insulin LISPRO* 1 UNITS UNIT SUBCUT SCH ×5 (06:43→22:06)
[2019-03-06 06:58] LABS: BUN/Creatinine Ratio 39.5 (8-20); Calcium 9.1 mg/dL (8.6-10.3); EGFR African American 130.3 (>60); EGFR Non-African American 107.7 (>60)
--- NOTE | 2019-03-06 07:36 | PN ---
Subjective Date of Service: 03/06/19 Interval History: HOSPITALIST PROGRESS NOTE Patient seen and examined at bedside. Care reviewed and d/w Kell COSTA. He feels a little better today, in good spirits. Breathing is easier, but was released from BiPAP and now requires Vapotherm. Family History: Unchanged from Admission Social History: Unchanged from Admission Past Medical History: Unchanged from Admission Objective Active Medications: Acetaminophen (Tylenol Tab*) 650 mg PO Q4H PRN PRN Reason: MILD PAIN or TEMP > 100.4 Al Hydrox/Mg Hydrox/Simethicone (Maalox Plus*) 30 ml PO Q6H PRN PRN Reason: INDIGESTION Albuterol/Ipratropium (Duoneb (Albuterol 2.5 Mg/Ipratropium 0.5 Mg)) 1 neb INH RT.BID [facility] Last Admin: 03/05/19 20:15 Dose: 1 neb Amlodipine Besylate (Norvasc Tab*) 7.5 mg PO DAILY [facility] Atorvastatin Calcium (Lipitor*) 40 mg PO DAILY [facility] Dextrose (Dextrose 50% Vial 50 Ml*) 25 ml IV PUSH .FOR FS < 60 - SS PRN PRN Reason: FS < 60 Enoxaparin Sodium (Lovenox(*)) 40 mg SUBCUT Q24H [facility] Last Admin: 03/05/19 21:13 Dose: 40 mg Ceftriaxone Sodium 1 gm/ (Sodium Chloride) 50 mls @ 100 mls/hr IVPB Q24H [facility] Azithromycin 250 mg/ Sodium (Chloride) 250 mls @ 250 mls/hr IVPB Q24H [facility] Insulin Human Isoph/Insulin Regular (Humulin 70/30 (*)) 30 units SUBCUT BID@ 0800,1700 [facility] Insulin Human Lispro (Humalog*) 0 units SUBCUT AC [facility]; Protocol Last Admin: 03/06/19 06:43 Dose: 15 units Lisinopril (Prinivil Tab*) 40 mg PO DAILY [facility] Mometasone Furoate/Formoterol Fumar (Dulera 200/5 Mdi*) 2 puff INH BID [facility] Last Admin: 03/05/19 20:15 Dose: 2 puff Ondansetron HCl (Zofran Inj*) 4 mg IV Q4H PRN PRN Reason: NAUSEA/VOMITING Prednisone (Deltasone Tab*) 50 mg PO DAILY [facility] Senna (Senokot 8.6 Mg Tab*) 1 tab PO BID PRN PRN Reason: CONSTIPATION Tiotropium Buhl (Spiriva Respimat 2.5 Mcg) 2 puff INH QAM [facility] Vital Signs - 8 hr 03/05/19 03/06/19 03/06/19 23:39 00:00 00:10 Temperature 97.8 F Pulse Rate 87 88 Respiratory 15 12 Rate Blood Pressure 120/65 (mmHg) O2 Sat by Pulse 95 95 Oximetry 03/06/19 03/06/19 03/06/19 01:00 02:00 02:01 Temperature Pulse Rate 83 90 87 Respiratory 18 14 16 Rate Blood Pressure 121/82 173/166 (mmHg) O2 Sat by Pulse 99 97 98 Oximetry 03/06/19 03/06/19 03/06/19 02:10 03:00 03:11 Temperature 97.0 F Pulse Rate 86 Respiratory 14 Rate Blood Pressure 140/60 108/62 (mmHg) O2 Sat by Pulse 94 Oximetry 03/06/19 03/06/19 03/06/19 04:00 05:00 05:47 Temperature Pulse Rate 76 85 Respiratory 15 13 14 Rate Blood Pressure 119/64 (mmHg) O2 Sat by Pulse 96 93 Oximetry 03/06/19 03/06/19 06:00 06:01 Temperature Pulse Rate 83 83 Respiratory 15 18 Rate Blood Pressure 115/66 (mmHg) O2 Sat by Pulse 96 97 Oximetry Oxygen Devices in Use Now: High Flow Heated Nasal Cannula - 20 liters FiO2 100% Appearance: Obese gentleman sitting up in bed in NAD. Eyes: No Scleral Icterus Ears/Nose/Mouth/Throat: Mucous Membranes Moist, - - Poor dentition Neck: Trachea Midline Respiratory: Symmetrical Chest Expansion and Respiratory Effort, - - BS+ bilaterally with faint wheezes, but patient just received a neb treatment Cardiovascular: RRR - Normal S1 and S2 Abdominal: NL Sounds; No Tenderness; No Distention - morbid obese Extremities: No Edema Neurological: Alert and Oriented x 3, NL Muscle Strength and Tone Result Diagrams: 03/06/19 04:14 03/06/19 14:20 Assess/Plan/Problems-Billing Assessment: Mr Lr is a 53yo M with PMH of COPD, type 2 DM, ALEJANDRO, HLD, HTN, who presented to the ED with worsening dyspnea, found to have COPD exacerbation secondary to pneumonia. - Patient Problems (1) Acute and chronic respiratory failure with hypercapnia Comment: - Acute on chronic hypoxic and hypercapnic respiratory failure. - Secondary to COPD exacerbation and pneumonia. - Suspect a component of obesity hypoventilation syndrome plus untreated ALEJANDRO ( non compliant with CPAP). - Continue supplemental O2 and BiPAP at night. (2) COPD with exacerbation Comment: - Secondary to pneumonia. - Continue steroids, bronchodilators. (3) Community acquired bacterial pneumonia Comment: - ID input appreciated - differential includes viral infection, but due to RUL infiltrate, will need to check AFB x 3 (on airborne precautions until r/o). - Continue Ceftriaxone and Zithromax. - Influenza A and B are negative. - Check Legionella and Pneumococcal Ag, as well as Cryptococcus Ag. (4) Type 2 diabetes mellitus Comment: - Chronically uncontrolled with A1c 9.5; worse now with steroid therapy. - Increase 70/30 to 45 units BID, continue Lispro SS and add carb coverage. (5) Hyperkalemia Comment: - Potassium was up to 6.0, with no significant EKG changes. - Will give Regular insulin, Patiromer and monitor. - D/c Lisinopril. (6) HTN (hypertension) Comment: - Controlled. - Will d/c Lisinopril due to hyperkalemia. - Increase Amlodipine to 10mg and continue to monitor. (7) HLD (hyperlipidemia) Comment: - Continue Atorvastatin. (8) DVT prophylaxis Comment: - Continue Lovenox. (9) Full code status Status and Disposition: Continue to monitor in ICU.
[2019-03-06] MEDS ORDERED: Insulin ISOPH/REG 70/30 (*) 1 UNITS UNIT SUBCUT SCH (08:00)
[2019-03-06] MEDS ORDERED: Dextrose 50% VIAL 50 ml IV ONE (08:26)
[2019-03-06] MEDS ORDERED: Patiromer POWDER* 8.4 GM PAK PO ONE ×2 (08:27→14:43)
[2019-03-06] MEDS ORDERED: Insulin REGULAR(*) 1 UNITS UNIT IV PUSH ONE ×2 (08:33→14:42)
[2019-03-06 08:38] LABS: Troponin I 0.03 ng/mL (<0.04)
[2019-03-06] MEDS: Albuterol/Ipratropium NEB.SOL* Albuterol 2.5 MG/Ipratropium 0.5 MG 3 ML INH SCH ×2 (08:43→19:55)
[2019-03-06] MEDS: SPIRIVA Respimat* (tiotropium) 2.5 mcg/inh Inhaler INH SCH (08:43)
[2019-03-06] MEDS: Mometasone/Formoter 200/5 MDI INH SCH ×2 (08:43→20:16)
[2019-03-06] MEDS ORDERED: Lisinopril TAB* 10 MG PO SCH (09:00)
[2019-03-06] MEDS ORDERED: amLODIPine TAB* 5 MG PO SCH (09:00)
[2019-03-06] MEDS: Sodium Chloride(INHALANT) 3%* 4 ML NEB.SOLN INH SCH ×3 (09:32→19:55)
[2019-03-06] MEDS: Atorvastatin* 40 MG TAB PO SCH (09:50)
[2019-03-06] MEDS: Azithromycin IV(*) 250 MG in NS 0.9% 250 ML* 250 ML IVPB SCH (10:01)
[2019-03-06] MEDS: cefTRIAXone(*) 1 GM in NS 0.9% 50 ML* 50 ML IVPB SCH (10:10)
[2019-03-06 11:14] LABS: Influenza A Molecular NEGATIVE (Negative); Influenza B Molecular NEGATIVE (Negative)
--- NOTE | 2019-03-06 11:31 | CONS ---
CONSULTATION REPORT: DATE OF CONSULT: 03/06/19 REQUESTING PHYSICIAN: Dr. Saucedo. CONSULTING SERVICE: Infectious Disease. REASON FOR CONSULT: Pneumonia and respiratory failure. IMPRESSION: 1. Acute on chronic dyspnea with minimal cough, no fevers or other particular systemic symptoms he is aware of. CT of the chest shows nodular and ground- glass opacity in all lobes and most dense in the right upper lobe. Differential includes viral infection like influenza, parainfluenza, adenovirus , human metapneumovirus. Other causes are community-acquired pneumonia like pneumococcus, less likely legionella. He does not have particular sick contacts or occupational or inhalational exposure. He is mildly immunocompromised by diabetes but other considerations could be pneumocystis, less likely, cryptococcal pneumonia. 2. Morbid obesity. 3. Type 2 diabetes. 4. Chronic obstructive pulmonary disease, on supplemental oxygen at home. 5. Obstructive sleep apnea. RECOMMENDATIONS: Agree with ceftriaxone and azithromycin. Add an influenza swab, PCR, pneumococcal and legionella urine antigens. Continue ceftriaxone and azithromycin. He is going to have acid-fast smear because of right upper lobe predominance, but I do think tuberculosis will be less likely. We will add cryptococcal antigen. HISTORY OF PRESENT ILLNESS: This is a 53-year-old male with obesity, COPD, on supplemental oxygen at home as well as type 2 diabetes, admitted with dyspnea. He has had longstanding shortness of breath which progressed rapidly over the last few days. He had no cough, fever, chills, sweats, weight loss or decrease in appetite. No rash, diarrhea or joint pain. Because of the symptoms, he came to the hospital. Yesterday, his white count was 6, today it is 3. He had a CT of the chest with scattered nodular densities, most prominently in the right upper lobe. He has no history of TB exposure or contact, was never in the , prison, fci or homeless detention and did not work in any of those settings. He has never had tuberculosis skin testing. He has had no sick contacts that he knows of. He lives with his girlfriend. He is disabled, has not traveled. They have cats at home. No parturient prabha cats. He is on high-flow oxygen 20 L by face mask, saturating 100%. He is having some nebulizer treatment because of wheezing and has had corticosteroids and antibiotics for community-acquired pneumonia. Today, he has shortness of breath , no cough but otherwise feels okay and interested in when he could go home. PAST MEDICAL HISTORY: 1. Obesity. 2. Type 2 diabetes. 3. Obstructive sleep apnea, untreated. 4. COPD, on 2 L by nasal cannula at home. 5. Hyperlipidemia. 6. Hypertension. MEDICATIONS: 1. Tylenol. 2. Albuterol inhaler. 3. Amlodipine. 4. Aspirin. 5. Lipitor. 6. Azithromycin 250 mg a day IV. 7. Enoxaparin. 8. Regular insulin. 9. Prednisone 50 mg a day. 10. Ceftriaxone 1 g daily. 11. Senna as needed. 12. Spiriva. ALLERGIES: LEVAQUIN causes shortness of breath. FAMILY HISTORY: Father at age 67 due to cirrhosis. Mother alive at 82 , has COPD. SOCIAL HISTORY: He lives in [place] with his girlfriend. No travel, no sick contacts. They have 2 cats, no kids at home. REVIEW OF SYSTEMS: All negative except as noted above to a 14-point review. PHYSICAL EXAM: Vital Signs: Temperature 36, heart rate 86, respiratory rate 15 , blood pressure 115/66, oxygen saturation 100% on 20 L by face mask. General: He is awake, not in distress. Neurologic: He is oriented x3. Follows commands. Moves all extremities. HEENT: There is no conjunctival hemorrhage. Oropharynx without lesions. Neck: Supple without mass. Heart: Regular rate and rhythm without murmurs, rubs, or gallops. Lungs: Bilateral expiratory wheeze without decreased breath sounds. Abdomen: Soft, nontender, nondistended. There are bowel sounds present. Skin: There is no rash or splinter hemorrhages. Musculoskeletal: There is no spine tenderness to palpation or joint synovitis. DIAGNOSTIC STUDIES/LAB DATA: Creatinine is 0.7, CO2 43, glucose 350. White blood cell count 3, hemoglobin 14, platelets 94. Please see impression and recommendations outlined above. I discussed with Dr. Saucedo. Thank you for asking me to see Mr. Lr in consultation. [id number]/[facility] #: [id number] MTDD
[2019-03-06] MEDS: predniSONE TAB* 50 MG PO SCH (12:18)
[2019-03-06 13:04] LABS: BUN/Creatinine Ratio 48.3 (8-20); EGFR African American 171.2 (>60); EGFR Non-African American 141.5 (>60)
[2019-03-06 13:11] LABS: Potassium 5.5 mmol/L (3.5-5.0)
[2019-03-06 14:54] LABS: Blood Urea Nitrogen 28 mg/dL (6-24); Calcium 8.6 mg/dL (8.6-10.3); Chloride 95 mmol/L (101-111); EGFR African American 185.4 (>60); EGFR Non-African American 153.2 (>60); Glucose 453 mg/dL (70-100); Sodium 138 mmol/L (135-145)
[2019-03-06] MEDS ORDERED: Albuterol/Ipratropium NEB.SOL* Albuterol 2.5 MG/Ipratropium 0.5 MG 3 ML INH PRN (14:54)
[2019-03-06] MEDS ORDERED: Dextrose 50% VIAL 50 ml IV PUSH PRN ×2 (15:01→15:14)
[2019-03-06 15:12] LABS: CO2 Carbon Dioxide 39 mmol/L (22-32)
[2019-03-06] MEDS ORDERED: Insulin LISPRO* 1 UNITS UNIT SUBCUT ONE (15:14)
[2019-03-06 15:54] LABS: Anion Gap 4 mmol/L (2-11)
[2019-03-06] MEDS: Insulin ISOPH/REG 70/30 (*) 1 UNITS UNIT SUBCUT SCH (18:09)
[2019-03-06] MEDS: Enoxaparin(*) 40 MG/0.4 ML SYR SUBCUT SCH (18:10)
--- NOTE | 2019-03-06 18:21 | CONS ---
PULMONARY CONSULTATION REPORT: DATE OF CONSULT: 03/06/19 CONSULTATION REQUESTED BY: Dr. Saucedo. REASON FOR CONSULT: Evaluation of hypoxemic and hypercapnic respiratory failure. HISTORY OF PRESENT ILLNESS: The patient is a 53-year-old obese male, smoker, with significant smoking history, with history of COPD; diabetes; obstructive sleep apnea, not being treated currently; hypertension, presents to the ED for evaluation of worsening shortness of breath. The patient reports gradually worsening shortness of breath over the past week to 2 weeks. The patient has been using his oxygen at 2 to 3 L at home and in spite of that he has been noticing worsening shortness of breath, which did not resolve even after increasing his O2 at home. The patient reports shortness of breath even with minimal exertion. Did not have significant cough or sputum production. Denied chest pain, palpitations, loss of weight or appetite. The patient also reports having headaches, dizziness. The patient also reports episodes of confusion and difficulty talking. The patient reports that he was not being himself recently. He denies urinary complaints, diarrhea, nausea, vomiting, abdominal pain, rash, swelling of the lymph nodes. The patient has been using his albuterol nebulizer without much relief. The patient was noted to be in significant respiratory distress upon arrival in the emergency room. He was satting 88% on 6 L. He was afebrile, tachypneic; however, hemodynamically stable. His VBG showed pCO2 of 91 and he was admitted for management of acute on chronic hypoxemic and hypercapnic respiratory failure. The patient was given DuoNeb. He was also given aspirin and was given a dose of azithromycin, ceftriaxone, and Solu-Medrol in the ED. He was continued on steroids and antibiotics. He has required higher FiO2 and was admitted to the ICU. The patient stayed on BiPAP all night long. He had significant improvement in mental status this morning. He still continues to have significant hypercapnia with respiratory acidosis. The patient is also requiring high FiO2. Currently on Vapotherm. The patient had chest x-ray and CT scan of the chest. I have personally reviewed chest x-ray and CT scan of the chest and with the patient today - chest x-ray showed evidence of airspace opacities bilaterally. CT scan of the chest showed evidence of patchy airspace opacity with some ground-glass and also some dense consolidation predominantly in the upper lung zones most medially. The patient also with scattered opacities in the lower lobes. The patient denies recent travel or sick contacts. The patient denies any other exposures recently. The patient has history of sleep apnea that is not being treated currently. The patient had some patchy nodular airspace opacities on prior CT scan from 2016. PAST MEDICAL HISTORY: 1. COPD, on home O2 at 2 to 3 L. 2. Diabetes type 2. 3. Obstructive sleep apnea, not being treated currently, his machine was removed due to noncompliance. 4. Dyslipidemia. 5. Hypertension. PAST SURGICAL HISTORY: Denies any. HOME MEDICATIONS: 1. Advair. 2. Albuterol. 3. Lipitor. 4. Amlodipine. 5. Lisinopril. 6. Lispro. 7. Spiriva. ALLERGIES: Difficulty breathing and wheezing to BANANA, difficulty breathing with LEVOFLOXACIN. FAMILY HISTORY: Father at age 67 due to cirrhosis related to alcohol use. Mother is alive at age 82 and has history of COPD. Denies family history of OH, stroke, or malignancy. SOCIAL HISTORY: Currently on disability. 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 He has significant smoking history, smokes about 1 pack per day, has been smoking since age 17. He occasionally drinks 9 alcoholic beverages per week, which are typically vodka. He also smokes marijuana daily. REVIEW OF SYSTEMS: All 12 systems were reviewed and as per HPI. PHYSICAL EXAM: Obese male, in bed, in no apparent distress. Vital Signs: Temperature 97.7, pulse 87 beats per minute, respiratory rate 14 to 19 per minute, O2 sat 94% on 70% FiO2, blood pressure 121/50. HEENT: Pupils equal, reactive to light. Mucous membranes moist. Lungs: Diminished air entry bilaterally, significant end-expiratory wheeze on auscultation. Cardiovascular : S1, S2 present, regular. Abdomen: Obese. Bowel sounds present. Nontender , nondistended. Extremities: Normal range of motion. Skin: No rash or bruises. Neuro: Alert, awake, oriented x3. No focal deficits. DIAGNOSTIC STUDIES/LAB DATA: WBC count 3.3, hemoglobin 14.4, hematocrit 45, platelet count of 94. Blood gas analysis showed respiratory acidosis with pH of 7.33, pCO2 of 71, pO2 of 62, bicarb of 31, and O2 sat of 93%. Sodium 138; potassium around 5.5 on previous labs, repeat pending; chloride 95; bicarb 39, improved from 42 this morning; BUN 28; creatinine 0.56; glucose has been elevated. Chest x-ray and CT scan of the chest as described above in HPI. IMPRESSION AND RECOMMENDATIONS: 53-year-old male with history of chronic obstructive pulmonary disease with chronic hypoxemic and possible hypercapnic respiratory failure, on home O2; obstructive sleep apnea, not being treated currently, admitted with worsening shortness of breath. The patient noted to have significant airspace opacities bilaterally predominantly in the upper lung zones. The patient's prior CT scans also showed some interstitial prominence predominantly in the upper lung zones, also scattered ground-glass opacities raising the possibility of chronic interstitial lung disease. He has been having significantly elevated blood sugars due to his underlying diabetes and he is immunocompromised. Infectious etiologies also likely including bacterial, viral and possibility of Pneumocystis and cryptococcal pneumonia. The patient was placed on isolation to rule out tuberculosis. He has had induced sputum, which has been negative x2. I do not suspect tuberculosis. He does not have any risk factors for that. The patient was started on steroids and also being covered for community-acquired pneumonia. He was seen by Infectious Disease specialist. Influenza swab was ordered and PCR for pneumococcal and legionella antigens was also ordered. We will monitor closely for clinical improvement. The patient is significantly hypoxemic at this time for consideration of bronchoscopy to obtain BAL. We would continue with current antibiotics and steroids. Optimal management of diabetes in the setting of steroid usage is advised. Continue with bronchodilators. The patient reports difficulty expectorating the phlegm. He has intermittent moist cough. Will try MetaNeb. He has history of sleep apnea, which needs to be evaluated as an outpatient. He is still with significant tightness in the chest and wheezing. Would continue with bronchodilators [id number]. Thank you for allowing me to participate in the care of your patient. Will follow up with you. [id number]/[facility] #: [id number] BETH
[2019-03-06 20:53] LABS: Calcium 9.5 mg/dL (8.6-10.3); EGFR Non-African American 138.8 (>60)
[2019-03-06 20:55] LABS: Potassium 5.3 mmol/L (3.5-5.0)
[2019-03-07 05:24] LABS: ABS Basophils 0.1 10^3/ul (0-0.2); ABS Lymphocytes 1.3 10^3/ul (1.0-4.8); ABS Monocytes 0.8 10^3/ul (0-0.8); ABS Neutrophils 4.4 10^3/ul (1.5-7.7); Hematocrit 43 % (42-52); Hemoglobin 14.2 g/dL (14.0-18.0); Lymphocyte % 19.4 %; Mean Corpuscular HGB Conc 33 g/dL (31-36); Mean Corpuscular Hemoglobin 29 pg (27-31); Mean Corpuscular Volume 88 fL (80-94); Nucleated Red Blood Cells % 0.1; Platelet Count 135 10^3/uL (150-450); Red Blood Count 4.92 10^6 /uL (4.18-5.48); Red Cell Distribution Width 14 % (10-15); White Blood Count 6.6 10^3/uL (3.5-10.8)
[2019-03-07 05:43] LABS: BUN/Creatinine Ratio 44.2 (8-20); Blood Urea Nitrogen 23 mg/dL (6-24); Calcium 9.4 mg/dL (8.6-10.3); Chloride 96 mmol/L (101-111); EGFR African American 201.9 (>60); EGFR Non-African American 166.9 (>60); Glucose 186 mg/dL (70-100); Sodium 140 mmol/L (135-145)
[2019-03-07 05:50] LABS: CO2 Carbon Dioxide 44 mmol/L (22-32); Potassium 5.5 mmol/L (3.5-5.0)
[2019-03-07] MEDS ORDERED: Sodium Polystyrene ORAL.SOL* 15 GM/60 ML BTL PO ONE ×2 (06:03→08:29)
[2019-03-07] MEDS: Albuterol/Ipratropium NEB.SOL* Albuterol 2.5 MG/Ipratropium 0.5 MG 3 ML INH SCH ×2 (07:41→19:10)
[2019-03-07] MEDS: SPIRIVA Respimat* (tiotropium) 2.5 mcg/inh Inhaler INH SCH (07:41)
[2019-03-07] MEDS: Sodium Chloride(INHALANT) 3%* 4 ML NEB.SOLN INH SCH ×3 (08:10→21:41)
[2019-03-07] MEDS: Mometasone/Formoter 200/5 MDI INH SCH ×2 (08:11→19:10)
[2019-03-07] MEDS: predniSONE TAB* 50 MG PO SCH (09:07)
[2019-03-07] MEDS: cefTRIAXone(*) 1 GM in NS 0.9% 50 ML* 50 ML IVPB SCH (09:07)
[2019-03-07] MEDS: Insulin ISOPH/REG 70/30 (*) 1 UNITS UNIT SUBCUT SCH ×2 (09:08→17:52)
[2019-03-07] MEDS: amLODIPine TAB* 5 MG PO SCH (09:08)
[2019-03-07] MEDS: Atorvastatin* 40 MG TAB PO SCH (09:08)
[2019-03-07] MEDS: Azithromycin IV(*) 250 MG in NS 0.9% 250 ML* 250 ML IVPB SCH (10:00)
[2019-03-07] MEDS: Insulin LISPRO* 1 UNITS UNIT SUBCUT SCH ×7 (10:00→21:35)
--- NOTE | 2019-03-07 13:49 | PN ---
Subjective Date of Service: 03/07/19 Interval History: HOSPITALIST PROGRESS NOTE Patient seen and examined at bedside. Care reviewed and d/w Heidy Sams RN. He feels better today. Still dyspneic, especially when transitioning from BiPAP to Vapotherm. Cough is less frequent. Denies N/V, appetite is preserved. Family History: Unchanged from Admission Social History: Unchanged from Admission Past Medical History: Unchanged from Admission Objective Active Medications: Acetaminophen (Tylenol Tab*) 650 mg PO Q4H PRN PRN Reason: MILD PAIN or TEMP > 100.4 Al Hydrox/Mg Hydrox/Simethicone (Maalox Plus*) 30 ml PO Q6H PRN PRN Reason: INDIGESTION Albuterol/Ipratropium (Duoneb (Albuterol 2.5 Mg/Ipratropium 0.5 Mg)) 1 neb INH RT.BID [facility] Last Admin: 03/07/19 07:41 Dose: 1 neb Albuterol/Ipratropium (Duoneb (Albuterol 2.5 Mg/Ipratropium 0.5 Mg)) 1 neb INH Q4H PRN PRN Reason: SOB/WHEEZING Amlodipine Besylate (Norvasc Tab*) 10 mg PO DAILY [facility] Last Admin: 03/07/19 09:08 Dose: 10 mg Atorvastatin Calcium (Lipitor*) 40 mg PO DAILY [facility] Last Admin: 03/07/19 09:08 Dose: 40 mg Dextrose (Dextrose 50% Vial 50 Ml*) 25 ml IV PUSH .FOR FS < 60 - SS PRN PRN Reason: FS < 60 Enoxaparin Sodium (Lovenox(*)) 40 mg SUBCUT Q24H [facility] Last Admin: 03/06/19 18:10 Dose: 40 mg Ceftriaxone Sodium 1 gm/ (Sodium Chloride) 50 mls @ 100 mls/hr IVPB Q24H [facility] Last Admin: 03/07/19 09:07 Dose: 100 mls/hr Azithromycin 250 mg/ Sodium (Chloride) 250 mls @ 250 mls/hr IVPB Q24H [facility] Last Admin: 03/07/19 10:00 Dose: 250 mls/hr Insulin Human Isoph/Insulin Regular (Humulin 70/30 (*)) 45 units SUBCUT BID@ 0800,1700 [facility] Last Admin: 03/07/19 09:08 Dose: 45 units Insulin Human Lispro (Humalog*) 0 units SUBCUT AC [facility]; Protocol Last Admin: 03/07/19 10:00 Dose: 4 units Insulin Human Lispro (Humalog*) 0 units SUBCUT ACHS [facility]; Protocol Last Admin: 03/07/19 10:00 Dose: 3 units Mometasone Furoate/Formoterol Fumar (Dulera 200/5 Mdi*) 2 puff INH BID [facility] Last Admin: 03/07/19 08:11 Dose: 2 puff Ondansetron HCl (Zofran Inj*) 4 mg IV Q4H PRN PRN Reason: NAUSEA/VOMITING Prednisone (Deltasone Tab*) 50 mg PO DAILY [facility] Last Admin: 03/07/19 09:07 Dose: 50 mg Senna (Senokot 8.6 Mg Tab*) 1 tab PO BID PRN PRN Reason: CONSTIPATION Sodium Chloride (Sodium Chloride(Inhalant) 3%*) 3 ml INH RT.TID [facility] Last Admin: 03/07/19 12:29 Dose: 3 ml Tiotropium [place] (Spiriva Respimat 2.5 Mcg) 2 puff INH QAM [facility] Last Admin: 03/07/19 07:41 Dose: 2 puff Vital Signs - 8 hr 03/07/19 03/07/19 03/07/19 06:00 07:00 07:49 Temperature 97.4 F Pulse Rate 72 79 Respiratory 12 19 Rate Blood Pressure 122/63 123/74 (mmHg) O2 Sat by Pulse 97 97 Oximetry 03/07/19 03/07/19 03/07/19 08:00 08:54 09:00 Temperature Pulse Rate 86 95 71 Respiratory 45 16 Rate Blood Pressure 116/73 102/64 (mmHg) O2 Sat by Pulse 80 92 90 Oximetry 03/07/19 03/07/19 03/07/19 09:48 10:00 10:04 Temperature Pulse Rate 75 Respiratory 18 12 18 Rate Blood Pressure 118/61 (mmHg) O2 Sat by Pulse 95 Oximetry 03/07/19 03/07/19 03/07/19 11:00 11:02 12:00 Temperature Pulse Rate 88 79 Respiratory 17 14 15 Rate Blood Pressure 129/76 127/74 (mmHg) O2 Sat by Pulse 91 99 Oximetry 03/07/19 03/07/19 03/07/19 12:17 13:00 13:03 Temperature 98.7 F Pulse Rate 82 Respiratory 27 16 17 Rate Blood Pressure 103/57 (mmHg) O2 Sat by Pulse 94 Oximetry Oxygen Devices in Use Now: High Flow Heated Nasal Cannula Appearance: Morbid obese middle aged gentleman sitting up in bed in NAD Eyes: No Scleral Icterus Ears/Nose/Mouth/Throat: Mucous Membranes Moist Neck: Trachea Midline Respiratory: Symmetrical Chest Expansion and Respiratory Effort, - - BS+ bilaterally with scattered wheezing Cardiovascular: NL Sounds; No Murmurs; No JVD, RRR Abdominal: NL Sounds; No Tenderness; No Distention - morbid obese Neurological: Alert and Oriented x 3, NL Muscle Strength and Tone Result Diagrams: 03/07/19 05:14 03/07/19 05:14 Microbiology and Other Data: Microbiology 03/05/19 19:45 Nasal Screen MRSA (PCR) - Final Nasal Mrsa Not Detected Assess/Plan/Problems-Billing Assessment: Mr Lr is a 53yo M with PMH of COPD, type 2 DM, ALEJANDRO, HLD, HTN, who presented to the ED with worsening dyspnea, found to have COPD exacerbation secondary to pneumonia. - Patient Problems (1) Acute and chronic respiratory failure with hypercapnia Comment: - Acute on chronic hypoxic and hypercapnic respiratory failure. - Secondary to COPD exacerbation and pneumonia. - Suspect a component of obesity hypoventilation syndrome plus untreated ALEJANDRO ( non compliant with CPAP). - Continue Vapotherm during the day and BiPAP at night. (2) COPD with exacerbation Comment: - Secondary to pneumonia. - Continue steroids, bronchodilators. (3) Community acquired bacterial pneumonia Comment: - ID input appreciated - differential includes viral infection, but due to RUL infiltrate need to r/o TB - AFB x 3 negative - d/c airborne precautions. - Continue Ceftriaxone and Zithromax. - Influenza A and B are negative, as well as Legionella and Pneumococcal Ag. (4) Type 2 diabetes mellitus Comment: - Chronically uncontrolled with A1c 9.5; worse now with steroid therapy. - Better controlled today, but still >200 - increase 70/30 to 50 units BID, continue Lispro SS with carb coverage. (5) Hyperkalemia Comment: - Potassium was 5.5 today. - Lisinopril was discontinued. - Will give Kayexalate and continue to monitor. (6) HTN (hypertension) Comment: - Controlled. - Lisinopril d/c due to hyperkalemia. - Amlodipine increased to 10mg on 03/06/19 - continue to monitor. (7) HLD (hyperlipidemia) Comment: - Continue Atorvastatin. (8) DVT prophylaxis Comment: - Continue Lovenox. (9) Full code status Status and Disposition: Continue to monitor in ICU.
--- NOTE | 2019-03-07 16:28 | PN ---
Progress Note - Progress Note Date of Service: 03/07/19 - Pulm f/u note Note: Pt seen and examined at bedside. Pt reports feeling better. Is sitting up on edge of bed. Desaturated when he was switched to nasal cannula and was switched to high flow. Active Medications Generic Name Dose Route Start Last Admin Trade Name Freq PRN Reason Stop Dose Admin Acetaminophen 650 mg 03/05/19 17:17 Tylenol Tab* PO Q4H PRN MILD PAIN or TEMP > 100.4 Al Hydrox/Mg Hydrox/Simethicone 30 ml 03/05/19 17:17 Maalox Plus* PO Q6H PRN INDIGESTION Albuterol/Ipratropium 1 neb 03/05/19 19:00 03/07/19 07:41 Duoneb (Albuterol 2.5 Mg/Ipratropium 0.5 Mg) INH 1 neb RT.BID [facility]ON Administration Albuterol/Ipratropium 1 neb 03/06/19 14:54 Duoneb (Albuterol 2.5 Mg/Ipratropium 0.5 Mg) INH Q4H PRN SOB/WHEEZING Amlodipine Besylate 10 mg 03/07/19 09:00 03/07/19 09:08 Norvasc Tab* PO 10 mg DAILY [facility] Administration Atorvastatin Calcium 40 mg 03/06/19 09:00 03/07/19 09:08 Lipitor* PO 40 mg DAILY [facility] Administration Dextrose 25 ml 03/06/19 15:14 Dextrose 50% Vial 50 Ml* IV PUSH .FOR FS < 60 - SS PRN FS < 60 Enoxaparin Sodium 40 mg 03/05/19 18:00 03/06/19 18:10 Lovenox(*) SUBCUT 40 mg Q24H [facility]ON Administration Ceftriaxone Sodium 1 gm/ 50 mls @ 100 mls/hr 03/06/19 09:00 03/07/19 09:07 Sodium Chloride IVPB 100 mls/hr Q24H [facility] Administration Azithromycin 250 mg/ Sodium 250 mls @ 250 mls/hr 03/06/19 08:00 03/07/19 10: 00 Chloride IVPB 250 mls/hr Q24H [facility] Administration Insulin Human Isoph/Insulin Regular 50 units 03/07/19 17:00 Humulin 70/30 (*) SUBCUT BID@0800,1700 [facility] Insulin Human Lispro 0 units 03/06/19 16:30 03/07/19 13:52 Humalog* SUBCUT 8 units AC [facility] Administration Protocol Insulin Human Lispro 0 units 03/06/19 16:30 03/07/19 13:52 Humalog* SUBCUT 6 units ACHS [facility] Administration Protocol Mometasone Furoate/Formoterol Fumar 2 puff 03/05/19 21:00 03/07/19 08:11 Dulera 200/5 Mdi* INH 2 puff BID [facility] Administration Ondansetron HCl 4 mg 03/05/19 17:17 Zofran Inj* IV Q4H PRN NAUSEA/VOMITING Prednisone 50 mg 03/06/19 09:00 03/07/19 09:07 Deltasone Tab* PO 50 mg DAILY [facility] Administration Senna 1 tab 03/05/19 17:17 Senokot 8.6 Mg Tab* PO BID PRN CONSTIPATION Sodium Chloride 3 ml 03/06/19 09:00 03/07/19 12:29 Sodium Chloride(Inhalant) 3%* INH 3 ml RT.TID [facility] Administration Tiotropium [place] 2 puff 03/06/19 09:00 03/07/19 07:41 Spiriva Respimat 2.5 Mcg INH 2 puff QAM [facility] Administration Vital Signs Temp Pulse Resp BP Pulse Ox 98.7 F 80 21 132/86 98 03/07/19 12:17 03/07/19 16:00 03/07/19 16:00 03/07/19 16:00 03/07/19 16:00 O/E: Pt in NAD HEENT: PERRLA, no JVD Lungs: Diminished air entry, exp wheeze+, improved CVS: S1, S2+, regular Abd: Soft, BS+ Ext: Normal ROM Skin: No rash Neuro: NO focal deficits Laboratory Results - last 24 hr 03/06/19 03/06/19 03/06/19 06:10 14:20 17:35 WBC RBC Hgb Hct MCV MCH MCHC RDW Plt Count MPV Neut % (Auto) Lymph % (Auto) [place] % (Auto) Eos % (Auto) Baso % (Auto) Absolute Neuts (auto) Absolute Lymphs (auto) Absolute Monos (auto) Absolute Eos (auto) Absolute Basos (auto) Absolute Nucleated RBC Nucleated RBC % Sodium 138 Potassium TNP Chloride 95 L Carbon Dioxide 39 H Anion Gap 4 BUN 28 H Creatinine 0.56 L Est GFR ( Amer) 185.4 Est GFR (Non-Af Amer) 153.2 BUN/Creatinine Ratio 50.0 H Glucose 453 H POC Glucose (mg/dL) 339 H Glucose Meter Confirm TNP Calcium 8.6 Cryptococcus Ag Negative 03/06/19 03/06/19 03/07/19 20:30 21:56 05:14 WBC 6.6 RBC 4.92 Hgb 14.2 Hct 43 MCV 88 MCH 29 MCHC 33 RDW 14 Plt Count 135 L MPV 8.0 Neut % (Auto) 66.9 Lymph % (Auto) 19.4 [place] % (Auto) 12.9 Eos % (Auto) 0.0 Baso % (Auto) 0.8 Absolute Neuts (auto) 4.4 Absolute Lymphs (auto) 1.3 Absolute Monos (auto) 0.8 Absolute Eos (auto) 0.0 Absolute Basos (auto) 0.1 Absolute Nucleated RBC 0.0 Nucleated RBC % 0.1 Sodium 138 Potassium 5.3 H Chloride 93 L Carbon Dioxide 43 H* Anion Gap 2 BUN 25 H Creatinine 0.61 L Est GFR ( Amer) 168.0 Est GFR (Non-Af Amer) 138.8 BUN/Creatinine Ratio 41.0 H Glucose 326 H POC Glucose (mg/dL) 291 H Glucose Meter Confirm Calcium 9.5 Cryptococcus Ag 03/07/19 03/07/19 03/07/19 05:14 07:43 12:00 WBC RBC Hgb Hct MCV MCH MCHC RDW Plt Count MPV Neut % (Auto) Lymph % (Auto) [place] % (Auto) Eos % (Auto) Baso % (Auto) Absolute Neuts (auto) Absolute Lymphs (auto) Absolute Monos (auto) Absolute Eos (auto) Absolute Basos (auto) Absolute Nucleated RBC Nucleated RBC % Sodium 140 Potassium 5.5 H Chloride 96 L Carbon Dioxide 44 H* Anion Gap Not Reportable BUN 23 Creatinine 0.52 L Est GFR ( Amer) 201.9 Est GFR (Non-Af Amer) 166.9 BUN/Creatinine Ratio 44.2 H Glucose 186 H POC Glucose (mg/dL) 165 H 216 H Glucose Meter Confirm Calcium 9.4 Cryptococcus Ag I/R 53yo M with PMH of COPD, type 2 DM, ALEJANDRO, HLD, HTN, who presented to the ED with worsening dyspnea, found to have COPD exacerbation secondary to pneumonia. AFBX3 negative, isolation removed. Still requiring high FiO2 , will titrate as tolerated Overall slightly improved Will switch to BiPAP at night Will c/w metanebs c/w abx Will need Trilogy on d/c PLan of care d/w pt and RT
[2019-03-07 16:35] LABS: BUN/Creatinine Ratio 36.1 (8-20); Blood Urea Nitrogen 22 mg/dL (6-24); Calcium 9.2 mg/dL (8.6-10.3); Chloride 91 mmol/L (101-111); EGFR Non-African American 138.8 (>60); Glucose 372 mg/dL (70-100); Sodium 139 mmol/L (135-145)
[2019-03-07 17:00] LABS: CO2 Carbon Dioxide 45 mmol/L (22-32)
[2019-03-07 17:01] LABS: Anion Gap 3 mmol/L (2-11)
[2019-03-07 17:38] LABS: Potassium Redraw 4.4 mmol/L (3.5-5.0)
[2019-03-07] MEDS: Enoxaparin(*) 40 MG/0.4 ML SYR SUBCUT SCH (17:52)
[2019-03-07] MEDS: acetaZOLAMIDE TAB* 250 MG PO SCH ×2 (21:34→21:49)
[2019-03-08 04:44] LABS: ABS Basophils 0.1 10^3/ul (0-0.2); ABS Lymphocytes 2.1 10^3/ul (1.0-4.8); ABS Neutrophils 3.8 10^3/ul (1.5-7.7); Eosinophil % 0.2 %; Hematocrit 42 % (42-52); Hemoglobin 13.4 g/dL (14.0-18.0); Lymphocyte % 29.8 %; Mean Corpuscular HGB Conc 32 g/dL (31-36); Mean Corpuscular Hemoglobin 28 pg (27-31); Mean Corpuscular Volume 89 fL (80-94); Mean Platelet Volume 7.9 fL (7.4-10.4); Nucleated Red Blood Cells % 0.1; Platelet Count 133 10^3/uL (150-450); Red Blood Count 4.74 10^6 /uL (4.18-5.48); Red Cell Distribution Width 14 % (10-15)
[2019-03-08 05:08] LABS: BUN/Creatinine Ratio 34.6 (8-20); Calcium 8.7 mg/dL (8.6-10.3); EGFR African American 201.9 (>60); EGFR Non-African American 166.9 (>60); Potassium 4.5 mmol/L (3.5-5.0)
--- NOTE | 2019-03-08 07:52 | PN ---
Subjective Date of Service: 03/08/19 Interval History: Little cough. Not as SOB today. Tolerated BIPAP last night. Some urinary urgency/incontinence/nocturia. Appetite OK. Family History: Unchanged from Admission Social History: Unchanged from Admission Past Medical History: Unchanged from Admission Objective Active Medications: Acetaminophen (Tylenol Tab*) 650 mg PO Q4H PRN PRN Reason: MILD PAIN or TEMP > 100.4 Acetazolamide (Diamox Tab*) 250 mg PO BID [facility] Stop: 03/10/19 09:01 Last Admin: 03/07/19 21:49 Dose: 250 mg Al Hydrox/Mg Hydrox/Simethicone (Maalox Plus*) 30 ml PO Q6H PRN PRN Reason: INDIGESTION Albuterol/Ipratropium (Duoneb (Albuterol 2.5 Mg/Ipratropium 0.5 Mg)) 1 neb INH RT.BID [facility] Last Admin: 03/07/19 19:10 Dose: 1 neb Albuterol/Ipratropium (Duoneb (Albuterol 2.5 Mg/Ipratropium 0.5 Mg)) 1 neb INH Q4H PRN PRN Reason: SOB/WHEEZING Amlodipine Besylate (Norvasc Tab*) 10 mg PO DAILY [facility] Last Admin: 03/07/19 09:08 Dose: 10 mg Atorvastatin Calcium (Lipitor*) 40 mg PO DAILY [facility] Last Admin: 03/07/19 09:08 Dose: 40 mg Dextrose (Dextrose 50% Vial 50 Ml*) 25 ml IV PUSH .FOR FS < 60 - SS PRN PRN Reason: FS < 60 Enoxaparin Sodium (Lovenox(*)) 40 mg SUBCUT Q24H [facility] Last Admin: 03/07/19 17:52 Dose: 40 mg Ceftriaxone Sodium 1 gm/ (Sodium Chloride) 50 mls @ 100 mls/hr IVPB Q24H [facility] Last Admin: 03/07/19 09:07 Dose: 100 mls/hr Azithromycin 250 mg/ Sodium (Chloride) 250 mls @ 250 mls/hr IVPB Q24H [facility] Last Admin: 03/07/19 10:00 Dose: 250 mls/hr Insulin Human Isoph/Insulin Regular (Humulin 70/30 (*)) 50 units SUBCUT BID@ 0800,1700 [facility] Last Admin: 03/07/19 17:52 Dose: 50 units Insulin Human Lispro (Humalog*) 0 units SUBCUT AC [facility]; Protocol Last Admin: 03/07/19 18:16 Dose: 5 units Insulin Human Lispro (Humalog*) 0 units SUBCUT ACHS [facility]; Protocol Last Admin: 03/07/19 21:35 Dose: 15 units Mometasone Furoate/Formoterol Fumar (Dulera 200/5 Mdi*) 2 puff INH BID [facility] Last Admin: 03/07/19 19:10 Dose: 2 puff Ondansetron HCl (Zofran Inj*) 4 mg IV Q4H PRN PRN Reason: NAUSEA/VOMITING Prednisone (Deltasone Tab*) 40 mg PO DAILY [facility] Senna (Senokot 8.6 Mg Tab*) 1 tab PO BID PRN PRN Reason: CONSTIPATION Sodium Chloride (Sodium Chloride(Inhalant) 3%*) 3 ml INH RT.TID [facility] Last Admin: 03/07/19 21:41 Dose: 3 ml Tiotropium [place] (Spiriva Respimat 2.5 Mcg) 2 puff INH QAM [facility] Last Admin: 03/07/19 07:41 Dose: 2 puff Vital Signs - 8 hr 03/08/19 03/08/19 03/08/19 00:00 00:08 01:00 Temperature Pulse Rate 70 75 67 Respiratory 19 16 16 Rate Blood Pressure 122/66 132/76 (mmHg) O2 Sat by Pulse 97 96 97 Oximetry 03/08/19 03/08/19 03/08/19 02:00 02:57 03:00 Temperature Pulse Rate 76 77 74 Respiratory 17 19 Rate Blood Pressure 103/62 128/74 126/64 (mmHg) O2 Sat by Pulse 98 100 99 Oximetry 03/08/19 03/08/19 03/08/19 03:16 04:00 05:00 Temperature 97.3 F Pulse Rate 71 84 Respiratory 18 16 Rate Blood Pressure 117/55 141/77 (mmHg) O2 Sat by Pulse 98 95 Oximetry 03/08/19 03/08/19 03/08/19 06:00 07:00 07:01 Temperature Pulse Rate 85 Respiratory 18 21 15 Rate Blood Pressure 132/75 119/80 (mmHg) O2 Sat by Pulse 95 Oximetry 03/08/19 07:13 Temperature 99.3 F Pulse Rate Respiratory Rate Blood Pressure (mmHg) O2 Sat by Pulse Oximetry Oxygen Devices in Use Now: BiPAP Appearance: Alert, partly up in ICU bed. In good spirits. Looks comfortable. Eyes: No Scleral Icterus Respiratory: Symmetrical Chest Expansion and Respiratory Effort, Clear to Percussion, - - Diminished BS BL. Cardiovascular: NL Sounds; No Murmurs; No JVD, RRR, No Edema, - Abdominal: - - obese, soft, nl BS Skin: No Rash or Ulcers, No Nodules or Sclerosis, - Neurological: Alert and Oriented x 3, NL Sensation Result Diagrams: 03/08/19 04:30 03/08/19 04:30 Microbiology and Other Data: Microbiology 03/05/19 19:45 Nasal Screen MRSA (PCR) - Final Nasal Mrsa Not Detected Assess/Plan/Problems-Billing Assessment: Mr Lr is a 53yo M with PMH of COPD, type 2 DM, ALEJANDRO, HLD, HTN, who presented to the ED with worsening dyspnea, found to have COPD exacerbation secondary to pneumonia. - Patient Problems (1) Acute and chronic respiratory failure with hypercapnia Current Visit: Yes Status: Acute Priority: High Code(s): J96.22 - ACUTE AND CHRONIC RESPIRATORY FAILURE WITH HYPERCAPNIA SNOMED Code(s): 9002520511732 Comment: - Secondary to COPD exacerbation and pneumonia. - Suspect a component of obesity hypoventilation syndrome plus untreated ALEJANDRO ( non compliant with CPAP). - Continue Vapotherm during the day and BiPAP at night. Needs Trilogy on discharge. (2) COPD with exacerbation Current Visit: Yes Status: Acute Code(s): J44.1 - CHRONIC OBSTRUCTIVE PULMONARY DISEASE W (ACUTE) EXACERBATION SNOMED Code(s): 432573728 Comment: - Secondary to pneumonia. Needs Trilogy on discharge. Taper steroids, continue bronchodilators. 6 doses acetazolamide ordered, first dose in PM 03/07/19. BMP 03/10. (3) Community acquired bacterial pneumonia Current Visit: Yes Status: Acute Priority: High Code(s): J15.9 - UNSPECIFIED BACTERIAL PNEUMONIA SNOMED Code(s): 508552571 Comment: - ID input appreciated - differential includes viral infection, but due to RUL infiltrate needed to r/o TB - AFB x 3 negative - airborne precautions d/c'd. - Continue Ceftriaxone and Zithromax. - Influenza A and B are negative, as well as Legionella and Pneumococcal Ag. (4) Type 2 diabetes mellitus Current Visit: Yes Status: Acute Comment: - Chronically uncontrolled with A1c 9.5. Continue 70/30 50 units BID, continue Lispro SS with carb coverage. Should show better glycemic control with prednisone taper, increased activity, less stress. (5) Hyperkalemia Current Visit: Yes Status: Acute Code(s): E87.5 - HYPERKALEMIA SNOMED Code (s): 55270474 Comment: - Potassium 4.5 on 03/08/19. - Lisinopril was discontinued. Repeat BMP 03/10 as now on acetazolamide. (6) HTN (hypertension) Current Visit: Yes Status: Acute Code(s): I10 - ESSENTIAL (PRIMARY) HYPERTENSION SNOMED Code(s): 45519918 Comment: - Controlled. - Lisinopril d/c due to hyperkalemia. - Amlodipine increased to 10mg on 03/06/19 - continue to monitor. (7) HLD (hyperlipidemia) Current Visit: Yes Status: Acute Code(s): E78.5 - HYPERLIPIDEMIA, UNSPECIFIED SNOMED Code(s): 27709708 Comment: - Continue Atorvastatin. (8) Tobacco abuse Current Visit: No Status: Chronic Priority: High Code(s): Z72.0 - TOBACCO USE SNOMED Code(s): 198488647 Comment: Smoked until this admission. Pt advised to quit smoking and avoid second hand smoke. Status and Disposition: Continue to monitor in ICU.
[2019-03-08] MEDS: Sodium Chloride(INHALANT) 3%* 4 ML NEB.SOLN INH SCH ×2 (07:56→14:05)
[2019-03-08] MEDS: Mometasone/Formoter 200/5 MDI INH SCH ×2 (07:57→19:50)
[2019-03-08] MEDS: Albuterol/Ipratropium NEB.SOL* Albuterol 2.5 MG/Ipratropium 0.5 MG 3 ML INH SCH (07:57)
[2019-03-08] MEDS: SPIRIVA Respimat* (tiotropium) 2.5 mcg/inh Inhaler INH SCH (08:00)
[2019-03-08] MEDS: predniSONE TAB* 20 MG PO SCH (08:40)
[2019-03-08] MEDS: Azithromycin IV(*) 250 MG in NS 0.9% 250 ML* 250 ML IVPB SCH (08:40)
[2019-03-08] MEDS: Atorvastatin* 40 MG TAB PO SCH (08:40)
[2019-03-08] MEDS: amLODIPine TAB* 5 MG PO SCH (08:40)
--- NOTE | 2019-03-08 09:20 | PN ---
Progress Note - Progress Note Date of Service: 03/08/19 SOAP: Subjective: CC: Dyspnea and respiratory failure HPI: Mr. Lr is a 53 yo male with PMH significant for morbid obesity, DM2, COPD on 2L via NC at home, ALEJANDRO, HTN, HLD. Continues to have shortness of breath , worse with exertion; but feels like overall this is improving. Reports cough, that is starting to be productive. Denies fever, chills, nausea, vomiting, or diarrhea. Objective: Vital Signs - 8 hr 03/08/19 03/08/19 03/08/19 07:13 07:41 08:00 Temperature 99.3 F Pulse Rate 78 Respiratory 16 21 Rate Blood Pressure (mmHg) O2 Sat by Pulse 97 Oximetry Physical Exam: General: NAD, sitting up in bed Neurological: Alert and Oriented x4 HEENT: Moist MM, no thrush Cardiovascular: Heart rate regular Respiratory: Lung sounds clear, diminished Abdominal: Bowel sounds present; ABD soft, large, non tender Skin: No rash Laboratory Results - last 24 hr 03/08/19 03/08/19 03/08/19 04:30 04:30 08:30 WBC 7.0 RBC 4.74 Hgb 13.4 L Hct 42 MCV 89 MCH 28 MCHC 32 RDW 14 Plt Count 133 L MPV 7.9 Neut % (Auto) 54.7 Lymph % (Auto) 29.8 [place] % (Auto) 14.3 Eos % (Auto) 0.2 Baso % (Auto) 1.0 Absolute Neuts (auto) 3.8 Absolute Lymphs (auto) 2.1 Absolute Monos (auto) 1.0 H Absolute Eos (auto) 0.0 Absolute Basos (auto) 0.1 Absolute Nucleated RBC 0.0 Nucleated RBC % 0.1 Sodium 141 Potassium 4.5 Chloride 95 L Carbon Dioxide 45 H* Anion Gap 1 L BUN 18 Creatinine 0.52 L Est GFR ( Amer) 201.9 Est GFR (Non-Af Amer) 166.9 BUN/Creatinine Ratio 34.6 H Glucose 188 H POC Glucose (mg/dL) 153 H Glucose Meter Confirm Calcium 8.7 Cryptococcus Ag Microbiology 03/06/19 20:15 Acid Fast Bacilli Smear - Final Respiratory 03/06/19 13:25 Acid Fast Bacilli Smear - Final Respiratory - Sputum Induced 03/07/19 05:54 Streptococcus pneumoniae Ag Screen - Final Urine Negative S. pneumo Antigen 03/07/19 05:54 Legionella Urinary Antigen - Final Urine Negative Legionella Antigen 03/06/19 09:33 Acid Fast Bacilli Smear - Final Respiratory - Sputum Induced 03/05/19 19:45 Nasal Screen MRSA (PCR) - Final Nasal Mrsa Not Detected Assessment: 1. Dyspnea, acute on chronic. Differential DX includes: Community acquired pneumonia (viral vs bacterial) vs COPD exacerbation or combination. CT scan with nodular and ground-glass opacity, most dense in the right upper lobe. Influenza A/B negative. 3 acid-fast smears negative. Urine antigens for s. pneumo and legionella. 2. Acute on chronic respiratory failure. O2 needs are improving. 3. Morbid obesity. With obstructive sleep apnea. 4. DM2. Plan: Continue ceftriaxone and azithromycin, day 4.
[2019-03-08] MEDS: Insulin LISPRO* 1 UNITS UNIT SUBCUT SCH ×7 (09:31→22:44)
[2019-03-08] MEDS: acetaZOLAMIDE TAB* 250 MG PO SCH (09:32)
[2019-03-08] MEDS: Insulin ISOPH/REG 70/30 (*) 1 UNITS UNIT SUBCUT SCH ×2 (09:32→18:17)
[2019-03-08] MEDS: cefTRIAXone(*) 1 GM in NS 0.9% 50 ML* 50 ML IVPB SCH (11:30)
--- NOTE | 2019-03-08 14:16 | PN ---
Progress Note - Progress Note Date of Service: 03/08/19 - Pulm f/u note Note: Pt seen and examined at bedside. Pt reports feeling better. FiO2 requirements have significantly improved, having productive cough Active Medications Generic Name Dose Route Start Last Admin Trade Name Freq PRN Reason Stop Dose Admin Acetaminophen 650 mg 03/05/19 17:17 Tylenol Tab* PO Q4H PRN MILD PAIN or TEMP > 100.4 Acetazolamide 250 mg 03/07/19 21:00 03/08/19 09:32 Diamox Tab* PO 03/10/19 09:01 250 mg BID [facility] Administration Al Hydrox/Mg Hydrox/Simethicone 30 ml 03/05/19 17:17 Maalox Plus* PO Q6H PRN INDIGESTION Albuterol/Ipratropium 1 neb 03/06/19 14:54 Duoneb (Albuterol 2.5 Mg/Ipratropium 0.5 Mg) INH Q4H PRN SOB/WHEEZING Amlodipine Besylate 10 mg 03/07/19 09:00 03/08/19 08:40 Norvasc Tab* PO 10 mg DAILY [facility] Administration Atorvastatin Calcium 40 mg 03/06/19 09:00 03/08/19 08:40 Lipitor* PO 40 mg DAILY [facility] Administration Azithromycin 250 mg 03/09/19 08:00 Zithromax Tab* PO 0800 [facility] Dextrose 25 ml 03/06/19 15:14 Dextrose 50% Vial 50 Ml* IV PUSH .FOR FS < 60 - SS PRN FS < 60 Enoxaparin Sodium 40 mg 03/05/19 18:00 03/07/19 17:52 Lovenox(*) SUBCUT 40 mg Q24H [facility] Administration Ceftriaxone Sodium 1 gm/ 50 mls @ 100 mls/hr 03/06/19 09:00 03/08/19 11:30 Sodium Chloride IVPB 100 mls/hr Q24H [facility] Administration Insulin Human Isoph/Insulin Regular 50 units 03/07/19 17:00 03/08/19 09:32 Humulin 70/30 (*) SUBCUT 50 units BID@0800,1700 [facility] Administration Insulin Human Lispro 0 units 03/06/19 16:30 03/08/19 13:54 Humalog* SUBCUT 6 units AC [facility] Administration Protocol Insulin Human Lispro 0 units 03/06/19 16:30 03/08/19 13:54 Humalog* SUBCUT 9 units ACHS [facility] Administration Protocol Mometasone Furoate/Formoterol Fumar 2 puff 03/05/19 21:00 03/08/19 07:57 Dulera 200/5 Mdi* INH 2 puff BID [facility] Administration Ondansetron HCl 4 mg 03/05/19 17:17 Zofran Inj* IV Q4H PRN NAUSEA/VOMITING Prednisone 40 mg 03/08/19 09:00 03/08/19 08:40 Deltasone Tab* PO 40 mg DAILY [facility] Administration Senna 1 tab 03/05/19 17:17 Senokot 8.6 Mg Tab* PO BID PRN CONSTIPATION Sodium Chloride 3 ml 03/06/19 09:00 03/08/19 14:05 Sodium Chloride(Inhalant) 3%* INH Not Given RT.TID [facility] Tiotropium [place] 2 puff 03/06/19 09:00 03/08/19 08:00 Spiriva Respimat 2.5 Mcg INH Not Given QAM [facility] Vital Signs Temp Pulse Resp BP Pulse Ox 97.9 F 98 17 115/78 90 03/08/19 13:16 03/08/19 13:01 03/08/19 13:01 03/08/19 13:01 03/08/19 13:16 O/E: Pt in NAD HEENT: PERRLA, no JVD Lungs: Diminished air entry CVS: S1, S2+, regular Abd: Soft, BS+ Ext: Normal ROM Skin: No rash Neuro: NO focal deficits Laboratory Results - last 24 hr 03/06/19 03/07/19 03/07/19 06:10 15:58 16:59 WBC RBC Hgb Hct MCV MCH MCHC RDW Plt Count MPV Neut % (Auto) Lymph % (Auto) [place] % (Auto) Eos % (Auto) Baso % (Auto) Absolute Neuts (auto) Absolute Lymphs (auto) Absolute Monos (auto) Absolute Eos (auto) Absolute Basos (auto) Absolute Nucleated RBC Nucleated RBC % Sodium 139 Potassium TNP Chloride 91 L Carbon Dioxide 45 H* Anion Gap 3 BUN 22 Creatinine 0.61 L Est GFR ( Amer) 168.0 Est GFR (Non-Af Amer) 138.8 BUN/Creatinine Ratio 36.1 H Glucose 372 H POC Glucose (mg/dL) > 444 H* Glucose Meter Confirm Calcium 9.2 Cryptococcus Ag Negative 03/07/19 03/07/19 03/08/19 17:13 21:00 04:30 WBC 7.0 RBC 4.74 Hgb 13.4 L Hct 42 MCV 89 MCH 28 MCHC 32 RDW 14 Plt Count 133 L MPV 7.9 Neut % (Auto) 54.7 Lymph % (Auto) 29.8 [place] % (Auto) 14.3 Eos % (Auto) 0.2 Baso % (Auto) 1.0 Absolute Neuts (auto) 3.8 Absolute Lymphs (auto) 2.1 Absolute Monos (auto) 1.0 H Absolute Eos (auto) 0.0 Absolute Basos (auto) 0.1 Absolute Nucleated RBC 0.0 Nucleated RBC % 0.1 Sodium Potassium 4.4 Chloride Carbon Dioxide Anion Gap BUN Creatinine Est GFR ( Amer) Est GFR (Non-Af Amer) BUN/Creatinine Ratio Glucose POC Glucose (mg/dL) Glucose Meter Confirm 422 H 390 H Calcium Cryptococcus Ag 03/08/19 03/08/19 03/08/19 04:30 08:30 12:48 WBC RBC Hgb Hct MCV MCH MCHC RDW Plt Count MPV Neut % (Auto) Lymph % (Auto) [place] % (Auto) Eos % (Auto) Baso % (Auto) Absolute Neuts (auto) Absolute Lymphs (auto) Absolute Monos (auto) Absolute Eos (auto) Absolute Basos (auto) Absolute Nucleated RBC Nucleated RBC % Sodium 141 Potassium 4.5 Chloride 95 L Carbon Dioxide 45 H* Anion Gap 1 L BUN 18 Creatinine 0.52 L Est GFR ( Amer) 201.9 Est GFR (Non-Af Amer) 166.9 BUN/Creatinine Ratio 34.6 H Glucose 188 H POC Glucose (mg/dL) 153 H 282 H Glucose Meter Confirm Calcium 8.7 Cryptococcus Ag I/R 53yo M with PMH of COPD, type 2 DM, ALEJANDRO, HLD, HTN, who presented to the ED with worsening dyspnea, found to have COPD exacerbation secondary to pneumonia. AFBX3 negative, isolation removed. Currently requiring 6 L O2 Wheeze resolved Overall improved c/w BiPAP at night Will c/w metanebs c/w abx Will need Trilogy and O2 on d/c PLan of care d/w pt and bedside RN
[2019-03-08] MEDS ORDERED: Albuterol 2.5 MG/3 ML NEB.SOL* (0.083%) INH SCH (15:00)
[2019-03-08] MEDS: Enoxaparin(*) 40 MG/0.4 ML SYR SUBCUT SCH (18:18)
[2019-03-08] MEDS: Albuterol 2.5 MG/3 ML NEB.SOL* (0.083%) INH SCH (20:09)
[2019-03-09] MEDS: Sodium Chloride(INHALANT) 3%* 4 ML NEB.SOLN INH SCH ×3 (07:09→14:12)
[2019-03-09] MEDS: Mometasone/Formoter 200/5 MDI INH SCH ×2 (07:41→19:54)
[2019-03-09] MEDS: Albuterol 2.5 MG/3 ML NEB.SOL* (0.083%) INH SCH ×2 (07:41→19:54)
[2019-03-09] MEDS: SPIRIVA Respimat* (tiotropium) 2.5 mcg/inh Inhaler INH SCH (07:46)
[2019-03-09 08:05] LABS: BUN/Creatinine Ratio 27.6 (8-20); Calcium 9.4 mg/dL (8.6-10.3); EGFR Non-African American 147.1 (>60); Potassium 4.4 mmol/L (3.5-5.0)
[2019-03-09] MEDS: Insulin LISPRO* 1 UNITS UNIT SUBCUT SCH ×7 (10:19→22:17)
[2019-03-09] MEDS: amLODIPine TAB* 5 MG PO SCH (10:20)
[2019-03-09] MEDS: acetaZOLAMIDE TAB* 250 MG PO SCH ×2 (10:20→18:19)
[2019-03-09] MEDS: Insulin ISOPH/REG 70/30 (*) 1 UNITS UNIT SUBCUT SCH ×2 (10:20→18:19)
[2019-03-09] MEDS: Atorvastatin* 40 MG TAB PO SCH (10:20)
[2019-03-09] MEDS: Azithromycin TAB* 250 MG PO SCH (10:20)
[2019-03-09] MEDS: cefTRIAXone(*) 1 GM in NS 0.9% 50 ML* 50 ML IVPB SCH (10:20)
[2019-03-09] MEDS: predniSONE TAB* 20 MG PO SCH (10:20)
--- NOTE | 2019-03-09 13:01 | PN ---
Progress Note - Progress Note Date of Service: 03/09/19 - Pulm f/u note Note: Pt seen and examined at bedside. Pt reports feeling better, desaturates however recovers quickly with exertion. Has been having cough productive of significant amounts of yellow phleghm. Active Medications Generic Name Dose Route Start Last Admin Trade Name Freq PRN Reason Stop Dose Admin Acetaminophen 650 mg 03/05/19 17:17 Tylenol Tab* PO Q4H PRN MILD PAIN or TEMP > 100.4 Acetazolamide 250 mg 03/09/19 09:00 03/09/19 10:20 Diamox Tab* PO 03/10/19 09:01 250 mg BID@0900,1600 [facility] Administration Al Hydrox/Mg Hydrox/Simethicone 30 ml 03/05/19 17:17 Maalox Plus* PO Q6H PRN INDIGESTION Albuterol 2.5 mg 03/08/19 19:00 03/09/19 07:41 Ventolin 2.5 Mg/3 Ml Neb.Shahrzad* INH 2.5 mg Q12H [facility] Administration Amlodipine Besylate 10 mg 03/07/19 09:00 03/09/19 10:20 Norvasc Tab* PO 10 mg DAILY [facility] Administration Atorvastatin Calcium 40 mg 03/06/19 09:00 03/09/19 10:20 Lipitor* PO 40 mg DAILY [facility] Administration Azithromycin 250 mg 03/09/19 08:00 03/09/19 10:20 Zithromax Tab* PO 250 mg 0800 [facility] Administration Dextrose 25 ml 03/06/19 15:14 Dextrose 50% Vial 50 Ml* IV PUSH .FOR FS < 60 - SS PRN FS < 60 Enoxaparin Sodium 40 mg 03/05/19 18:00 03/08/19 18:18 Lovenox(*) SUBCUT 40 mg Q24H [facility] Administration Ceftriaxone Sodium 1 gm/ 50 mls @ 100 mls/hr 03/06/19 09:00 03/09/19 10:20 Sodium Chloride IVPB 100 mls/hr Q24H [facility] Administration Insulin Human Isoph/Insulin Regular 50 units 03/07/19 17:00 03/09/19 10:20 Humulin 70/30 (*) SUBCUT 50 units BID@0800,1700 [facility] Administration Insulin Human Lispro 0 units 03/06/19 16:30 03/09/19 10:19 Humalog* SUBCUT 5 units AC [facility] Administration Protocol Insulin Human Lispro 0 units 03/06/19 16:30 03/09/19 10:19 Humalog* SUBCUT 2 units ACHS [facility] Administration Protocol Mometasone Furoate/Formoterol Fumar 2 puff 03/05/19 21:00 03/09/19 07:41 Dulera 200/5 Mdi* INH 2 puff BID [facility] Administration Ondansetron HCl 4 mg 03/05/19 17:17 Zofran Inj* IV Q4H PRN NAUSEA/VOMITING Prednisone 40 mg 03/08/19 09:00 03/09/19 10:20 Deltasone Tab* PO 40 mg DAILY [facility] Administration Senna 1 tab 03/05/19 17:17 Senokot 8.6 Mg Tab* PO BID PRN CONSTIPATION Sodium Chloride 3 ml 03/06/19 09:00 03/09/19 07:45 Sodium Chloride(Inhalant) 3%* INH Not Given RT.TID [facility] Tiotropium [place] 2 puff 03/06/19 09:00 03/09/19 07:46 Spiriva Respimat 2.5 Mcg INH Not Given QAM [facility] Vital Signs Temp Pulse Resp BP Pulse Ox 97.4 F 79 16 125/63 93 03/09/19 11:15 03/09/19 11:15 03/09/19 11:15 03/09/19 11:15 03/09/19 11:15 O/E: Pt in NAD, lying in bed HEENT: PERRLA, no JVD Lungs: Diminished air entry, mild wheeze+ CVS: S1, S2+, regular Abd: Soft, BS+ Ext: Normal ROM Skin: No rash Neuro: NO focal deficits Laboratory Results - last 24 hr 03/08/19 03/08/19 03/08/19 12:48 17:01 21:34 Sodium Potassium Chloride Carbon Dioxide Anion Gap BUN Creatinine Est GFR ( Amer) Est GFR (Non-Af Amer) BUN/Creatinine Ratio Glucose POC Glucose (mg/dL) 282 H Glucose Meter Confirm 299 H 320 H Calcium 03/09/19 03/09/19 03/09/19 07:32 07:54 11:53 Sodium 140 Potassium 4.4 Chloride 98 L Carbon Dioxide 40 H Anion Gap 2 BUN 16 Creatinine 0.58 L Est GFR ( Amer) 178.0 Est GFR (Non-Af Amer) 147.1 BUN/Creatinine Ratio 27.6 H Glucose 143 H POC Glucose (mg/dL) 147 H 225 H Glucose Meter Confirm Calcium 9.4 I/R 53yo M with PMH of COPD, type 2 DM, ALEJANDRO, HLD, HTN, who presented to the ED with worsening dyspnea, found to have COPD exacerbation secondary to pneumonia. AFBX3 negative, isolation removed. Hypercapnic and acute on chronic hypoxic resp failure, improving Currently requiring 4 L O2, titrate to keep O2 around 92% Overall improved c/w BiPAP at night Will c/w metanebs c/w abx to complete course Will need Trilogy for hypercapnic resp failure and O2 on d/c Will f/u in pulm clinic as out pt PLan of care d/w pt and Dr Tran
--- NOTE | 2019-03-09 14:36 | PN ---
Subjective Date of Service: 03/09/19 Interval History: No acute events overnight. Downgraded from ICU. on 4L. No chest pain. Some more productive cough. Had significant wheezing prior to admission but denies fever or much coughing. eating well, no abdominal pain. Family History: Unchanged from Admission Social History: Unchanged from Admission Past Medical History: Unchanged from Admission Objective Active Medications: Acetaminophen (Tylenol Tab*) 650 mg PO Q4H PRN PRN Reason: MILD PAIN or TEMP > 100.4 Acetazolamide (Diamox Tab*) 250 mg PO BID@0900,1600 [facility] Stop: 03/10/19 09:01 Last Admin: 03/09/19 10:20 Dose: 250 mg Al Hydrox/Mg Hydrox/Simethicone (Maalox Plus*) 30 ml PO Q6H PRN PRN Reason: INDIGESTION Albuterol (Ventolin 2.5 Mg/3 Ml Neb.Shahrzad*) 2.5 mg INH Q12H [facility] Last Admin: 03/09/19 07:41 Dose: 2.5 mg Amlodipine Besylate (Norvasc Tab*) 10 mg PO DAILY [facility] Last Admin: 03/09/19 10:20 Dose: 10 mg Atorvastatin Calcium (Lipitor*) 40 mg PO DAILY [facility] Last Admin: 03/09/19 10:20 Dose: 40 mg Azithromycin (Zithromax Tab*) 250 mg PO 0800 [facility] Last Admin: 03/09/19 10:20 Dose: 250 mg Dextrose (Dextrose 50% Vial 50 Ml*) 25 ml IV PUSH .FOR FS < 60 - SS PRN PRN Reason: FS < 60 Enoxaparin Sodium (Lovenox(*)) 40 mg SUBCUT Q24H [facility] Last Admin: 03/08/19 18:18 Dose: 40 mg Ceftriaxone Sodium 1 gm/ (Sodium Chloride) 50 mls @ 100 mls/hr IVPB Q24H [facility] Last Admin: 03/09/19 10:20 Dose: 100 mls/hr Insulin Human Isoph/Insulin Regular (Humulin 70/30 (*)) 50 units SUBCUT BID@ 0800,1700 [facility] Last Admin: 03/09/19 10:20 Dose: 50 units Insulin Human Lispro (Humalog*) 0 units SUBCUT AC [facility]; Protocol Last Admin: 03/09/19 13:23 Dose: 5 units Insulin Human Lispro (Humalog*) 0 units SUBCUT ACHS [facility]; Protocol Last Admin: 03/09/19 13:24 Dose: 6 units Mometasone Furoate/Formoterol Fumar (Dulera 200/5 Mdi*) 2 puff INH BID [facility] Last Admin: 03/09/19 07:41 Dose: 2 puff Ondansetron HCl (Zofran Inj*) 4 mg IV Q4H PRN PRN Reason: NAUSEA/VOMITING Prednisone (Deltasone Tab*) 40 mg PO DAILY [facility] Last Admin: 03/09/19 10:20 Dose: 40 mg Senna (Senokot 8.6 Mg Tab*) 1 tab PO BID PRN PRN Reason: CONSTIPATION Sodium Chloride (Sodium Chloride(Inhalant) 3%*) 3 ml INH RT.TID [facility] Last Admin: 03/09/19 14:12 Dose: Not Given Tiotropium [place] (Spiriva Respimat 2.5 Mcg) 2 puff INH QAM [facility] Last Admin: 03/09/19 07:46 Dose: Not Given Vital Signs - 8 hr 03/09/19 03/09/19 03/09/19 07:15 07:47 07:48 Temperature Pulse Rate 82 80 83 Respiratory 18 18 18 Rate Blood Pressure 147/80 (mmHg) O2 Sat by Pulse 95 96 Oximetry 03/09/19 03/09/19 08:00 11:15 Temperature 97.4 F Pulse Rate 79 Respiratory 18 16 Rate Blood Pressure 125/63 (mmHg) O2 Sat by Pulse 93 Oximetry Oxygen Devices in Use Now: Nasal Cannula Appearance: NAD Ears/Nose/Mouth/Throat: NL Teeth, Lips, Gums Neck: NL Appearance and Movements; NL JVP Respiratory: Symmetrical Chest Expansion and Respiratory Effort, - - distant breath sounds, no wheezing or rhonchi. Cardiovascular: NL Sounds; No Murmurs; No JVD, RRR Extremities: No Edema Skin: No Rash or Ulcers Neurological: Alert and Oriented x 3 Nutrition: Taking PO's Result Diagrams: 03/08/19 04:30 03/09/19 07:32 Additional Lab and Data: Laboratory Results - last 24 hr 03/08/19 03/08/19 03/09/19 17:01 21:34 07:32 Sodium 140 Potassium 4.4 Chloride 98 L Carbon Dioxide 40 H Anion Gap 2 BUN 16 Creatinine 0.58 L Est GFR ( Amer) 178.0 Est GFR (Non-Af Amer) 147.1 BUN/Creatinine Ratio 27.6 H Glucose 143 H POC Glucose (mg/dL) Glucose Meter Confirm 299 H 320 H Calcium 9.4 03/09/19 03/09/19 07:54 11:53 Sodium Potassium Chloride Carbon Dioxide Anion Gap BUN Creatinine Est GFR ( Amer) Est GFR (Non-Af Amer) BUN/Creatinine Ratio Glucose POC Glucose (mg/dL) 147 H 225 H Glucose Meter Confirm Calcium Microbiology and Other Data: Microbiology 03/06/19 20:15 Respiratory Acid Fast Bacilli Smear - Final 03/06/19 13:25 Respiratory - Sputum Induced Acid Fast Bacilli Smear - Final 03/07/19 05:54 Urine Streptococcus pneumoniae Ag Screen - Final Negative S. pneumo Antigen 03/07/19 05:54 Urine Legionella Urinary Antigen - Final Negative Legionella Antigen 03/06/19 09:33 Respiratory - Sputum Induced Acid Fast Bacilli Smear - Final 03/05/19 19:45 Nasal Nasal Screen MRSA (PCR) - Final Mrsa Not Detected Assess/Plan/Problems-Billing Assessment: Mr Lr is a 53yo M with PMH of COPD, type 2 DM, ALEJANDRO, HLD, HTN, current smoker who presented to the ED with worsening dyspnea, found to have COPD exacerbation secondary to pneumonia. - Patient Problems (1) Acute and chronic respiratory failure with hypercapnia Current Visit: Yes Status: Acute Priority: High Code(s): J96.22 - ACUTE AND CHRONIC RESPIRATORY FAILURE WITH HYPERCAPNIA SNOMED Code(s): 2412165930064 Comment: - Secondary to COPD exacerbation and pneumonia. - Suspect a component of obesity hypoventilation syndrome plus untreated ALEJANDRO ( non compliant with CPAP). - Continue nasal cannula (currently L) during the day and BiPAP at night. Needs Trilogy on discharge. (2) COPD with exacerbation Current Visit: Yes Status: Acute Code(s): J44.1 - CHRONIC OBSTRUCTIVE PULMONARY DISEASE W (ACUTE) EXACERBATION SNOMED Code(s): 004315419 Comment: - Secondary to pneumonia. Needs Trilogy on discharge. Taper steroids, continue bronchodilators. 6 doses acetazolamide ordered, first dose in PM 03/07/19. bicarb improved. (3) Community acquired bacterial pneumonia Current Visit: Yes Status: Acute Priority: High Code(s): J15.9 - UNSPECIFIED BACTERIAL PNEUMONIA SNOMED Code(s): 888056987 Comment: - ID input appreciated - differential includes viral infection, but due to RUL infiltrate needed to r/o TB - AFB x 3 negative - airborne precautions d/c'd. - Continue Ceftriaxone and Zithromax. (Day 5 of abx) - Influenza A and B are negative, as well as Legionella and Pneumococcal Ag. (4) DVT prophylaxis Current Visit: Yes Status: Acute Priority: High Code(s): XXI1772 - SNOMED Code(s): 668036980 Comment: - Continue Lovenox. (5) Full code status Current Visit: Yes Status: Acute Code(s): Z78.9 - OTHER SPECIFIED HEALTH STATUS SNOMED Code(s): 228637357 (6) HLD (hyperlipidemia) Current Visit: Yes Status: Acute Code(s): E78.5 - HYPERLIPIDEMIA, UNSPECIFIED SNOMED Code(s): 33229175 Comment: - Continue Atorvastatin. (7) HTN (hypertension) Current Visit: Yes Status: Acute Code(s): I10 - ESSENTIAL (PRIMARY) HYPERTENSION SNOMED Code(s): 31678330 Comment: - Controlled. 110-1402 - Lisinopril d/c'd due to hyperkalemia. - Amlodipine 10mg (8) Type 2 diabetes mellitus Current Visit: Yes Status: Acute Comment: - Chronically uncontrolled with A1c 9.5. 140-220 currently. Continue 70/30 50 units BID, continue Lispro SS with carb coverage. Should show better glycemic control with prednisone taper, increased activity, less stress. (9) Tobacco abuse counseling Current Visit: No Status: Acute Priority: High Code(s): Z71.6 - TOBACCO ABUSE COUNSELING SNOMED Code(s): 364931590 Comment: - I spent over 10 minutes imploring patient to stop smoking now and forevermore ; that NOT doing so would lead to a significantly shortened lifespan statistically, given his current situation. (10) Tobacco abuse Current Visit: No Status: Chronic Priority: High Code(s): Z72.0 - TOBACCO USE SNOMED Code(s): 416869597 Comment: Smoked until this admission. Pt advised to quit smoking and avoid second hand smoke. Status and Disposition: medicine inpatient. needs trilogy or at least bipap for discharge.
[2019-03-09] MEDS: Enoxaparin(*) 40 MG/0.4 ML SYR SUBCUT SCH (18:17)
[2019-03-10 05:13] LABS: BUN/Creatinine Ratio 33.3 (8-20); Calcium 9.2 mg/dL (8.6-10.3); EGFR African American 171.2 (>60); EGFR Non-African American 141.5 (>60)
[2019-03-10 05:25] LABS: Potassium 4.5 mmol/L (3.5-5.0)
[2019-03-10] MEDS: Sodium Chloride(INHALANT) 3%* 4 ML NEB.SOLN INH SCH (06:49)
[2019-03-10] MEDS: Albuterol 2.5 MG/3 ML NEB.SOL* (0.083%) INH SCH ×2 (07:39→19:39)
[2019-03-10] MEDS: SPIRIVA Respimat* (tiotropium) 2.5 mcg/inh Inhaler INH SCH (07:39)
[2019-03-10] MEDS: Mometasone/Formoter 200/5 MDI INH SCH ×2 (07:39→19:39)
--- NOTE | 2019-03-10 08:29 | PN ---
Subjective Date of Service: 03/10/19 Interval History: Not SOB. Some brown sputum, less than before. No bowel c/o. No new c/o. Family History: Unchanged from Admission Social History: Unchanged from Admission Past Medical History: Unchanged from Admission Objective Active Medications: Acetaminophen (Tylenol Tab*) 650 mg PO Q4H PRN PRN Reason: MILD PAIN or TEMP > 100.4 Acetazolamide (Diamox Tab*) 250 mg PO BID@0900,1600 [facility] Stop: 03/10/19 09:01 Last Admin: 03/09/19 18:19 Dose: 250 mg Al Hydrox/Mg Hydrox/Simethicone (Maalox Plus*) 30 ml PO Q6H PRN PRN Reason: INDIGESTION Albuterol (Ventolin 2.5 Mg/3 Ml Neb.Shahrzad*) 2.5 mg INH Q12H [facility] Last Admin: 03/10/19 07:39 Dose: 2.5 mg Amlodipine Besylate (Norvasc Tab*) 10 mg PO DAILY [facility] Last Admin: 03/09/19 10:20 Dose: 10 mg Atorvastatin Calcium (Lipitor*) 40 mg PO DAILY [facility] Last Admin: 03/09/19 10:20 Dose: 40 mg Dextrose (Dextrose 50% Vial 50 Ml*) 25 ml IV PUSH .FOR FS < 60 - SS PRN PRN Reason: FS < 60 Enoxaparin Sodium (Lovenox(*)) 40 mg SUBCUT Q24H [facility] Last Admin: 03/09/19 18:17 Dose: 40 mg Ceftriaxone Sodium 1 gm/ (Sodium Chloride) 50 mls @ 100 mls/hr IVPB Q24H [facility] Last Admin: 03/09/19 10:20 Dose: 100 mls/hr Insulin Human Isoph/Insulin Regular (Humulin 70/30 (*)) 50 units SUBCUT BID@ 0800,1700 [facility] Last Admin: 03/09/19 18:19 Dose: 50 units Insulin Human Lispro (Humalog*) 0 units SUBCUT AC [facility]; Protocol Last Admin: 03/09/19 18:18 Dose: 7 units Insulin Human Lispro (Humalog*) 0 units SUBCUT ACHS [facility]; Protocol Last Admin: 03/09/19 22:17 Dose: 12 units Mometasone Furoate/Formoterol Fumar (Dulera 200/5 Mdi*) 2 puff INH BID [facility] Last Admin: 03/10/19 07:39 Dose: 2 puff Ondansetron HCl (Zofran Inj*) 4 mg IV Q4H PRN PRN Reason: NAUSEA/VOMITING Prednisone (Deltasone Tab*) 30 mg PO DAILY [facility] Senna (Senokot 8.6 Mg Tab*) 1 tab PO BID PRN PRN Reason: CONSTIPATION Tiotropium [place] (Spiriva Respimat 2.5 Mcg) 2 puff INH QAM [facility] Last Admin: 03/10/19 07:39 Dose: 2 puff Vital Signs - 8 hr 03/10/19 03/10/19 03/10/19 03:43 06:21 07:44 Temperature 97.5 F 97.1 F Pulse Rate 66 70 73 Respiratory 16 15 16 Rate Blood Pressure 118/54 119/52 (mmHg) O2 Sat by Pulse 100 99 98 Oximetry Oxygen Devices in Use Now: Nasal Cannula Appearance: Alert, sitting on the edge of his bed. In good spirits. Looks comfortable. Eyes: No Scleral Icterus Respiratory: Symmetrical Chest Expansion and Respiratory Effort, Clear to Auscultation, Clear to Percussion, - - barrel chested Cardiovascular: NL Sounds; No Murmurs; No JVD, RRR, No Edema, - Extremities: No Edema, No Clubbing, Cyanosis, - Skin: No Rash or Ulcers, No Nodules or Sclerosis, - Neurological: Alert and Oriented x 3, NL Sensation Result Diagrams: 03/08/19 04:30 03/10/19 04:38 Additional Lab and Data: Laboratory Results - last 24 hr 03/08/19 03/08/19 03/09/19 17:01 21:34 07:32 Sodium 140 Potassium 4.4 Chloride 98 L Carbon Dioxide 40 H Anion Gap 2 BUN 16 Creatinine 0.58 L Est GFR ( Amer) 178.0 Est GFR (Non-Af Amer) 147.1 BUN/Creatinine Ratio 27.6 H Glucose 143 H POC Glucose (mg/dL) Glucose Meter Confirm 299 H 320 H Calcium 9.4 03/09/19 03/09/19 07:54 11:53 Sodium Potassium Chloride Carbon Dioxide Anion Gap BUN Creatinine Est GFR ( Amer) Est GFR (Non-Af Amer) BUN/Creatinine Ratio Glucose POC Glucose (mg/dL) 147 H 225 H Glucose Meter Confirm Calcium Microbiology and Other Data: Microbiology 11/06/19 20:15 Respiratory Acid Fast Bacilli Smear - Final 03/06/19 13:25 Respiratory - Sputum Induced Acid Fast Bacilli Smear - Final 03/07/19 05:54 Urine Streptococcus pneumoniae Ag Screen - Final Negative S. pneumo Antigen 03/07/19 05:54 Urine Legionella Urinary Antigen - Final Negative Legionella Antigen 03/06/19 09:33 Respiratory - Sputum Induced Acid Fast Bacilli Smear - Final 03/05/19 19:45 Nasal Nasal Screen MRSA (PCR) - Final Mrsa Not Detected Assess/Plan/Problems-Billing Assessment: Mr Lr is a 53yo M with PMH of COPD, type 2 DM, ALEJANDRO, HLD, HTN, current smoker who presented to the ED with worsening dyspnea, found to have COPD exacerbation secondary to pneumonia. - Patient Problems (1) Acute and chronic respiratory failure with hypercapnia Current Visit: Yes Status: Acute Priority: High Code(s): J96.22 - ACUTE AND CHRONIC RESPIRATORY FAILURE WITH HYPERCAPNIA SNOMED Code(s): 0723582399227 Comment: - Secondary to COPD exacerbation and pneumonia. - Suspect a component of obesity hypoventilation syndrome plus untreated ALEJANDRO ( non compliant with CPAP). - Continue nasal cannula (currently L) during the day and BiPAP at night. Needs Astral NIPPV on discharge. (2) COPD with exacerbation Current Visit: Yes Status: Acute Code(s): J44.1 - CHRONIC OBSTRUCTIVE PULMONARY DISEASE W (ACUTE) EXACERBATION SNOMED Code(s): 466775418 Comment: - Secondary to pneumonia. Needs Trilogy on discharge. Taper steroids, continue bronchodilators. 6 doses acetazolamide ordered, last dose in AM 03/11/19. bicarb improved. (3) Community acquired bacterial pneumonia Current Visit: Yes Status: Acute Priority: High Code(s): J15.9 - UNSPECIFIED BACTERIAL PNEUMONIA SNOMED Code(s): 211384353 Comment: - ID input appreciated - differential includes viral infection, but due to RUL infiltrate needed to r/o TB - AFB x 3 negative - airborne precautions d/c'd. - Continue Ceftriaxone. Completed 5 days of Zithromax. - Influenza A and B are negative, as well as Legionella and Pneumococcal Ag. (4) Type 2 diabetes mellitus Current Visit: Yes Status: Acute Comment: - Chronically uncontrolled with A1c 9.5. Fair to poor glycemic control, should improive with prednisone taper, increased activity, less stress. Continue 70/30 50 units BID, continue Lispro SS with carb coverage. (5) Hyperkalemia Current Visit: Yes Status: Acute Code(s): E87.5 - HYPERKALEMIA SNOMED Code (s): 31130264 Comment: - Potassium 4.5 on 03/10/19. - Lisinopril was discontinued. (6) HTN (hypertension) Current Visit: Yes Status: Acute Code(s): I10 - ESSENTIAL (PRIMARY) HYPERTENSION SNOMED Code(s): 13708716 Comment: - Controlled. - Lisinopril d/c'd due to hyperkalemia. - Amlodipine 10mg daily (7) HLD (hyperlipidemia) Current Visit: Yes Status: Acute Code(s): E78.5 - HYPERLIPIDEMIA, UNSPECIFIED SNOMED Code(s): 28386161 Comment: - Continue Atorvastatin. (8) Tobacco abuse Current Visit: No Status: Chronic Priority: High Code(s): Z72.0 - TOBACCO USE SNOMED Code(s): 640550616 Comment: Smoked until this admission. Pt advised to quit smoking and avoid second hand smoke. Status and Disposition: medicine inpatient. needs trilogy or at least bipap for discharge.
[2019-03-10] MEDS: Azithromycin TAB* 250 MG PO SCH (08:57)
[2019-03-10] MEDS: cefTRIAXone(*) 1 GM in NS 0.9% 50 ML* 50 ML IVPB SCH (09:08)
[2019-03-10] MEDS: Insulin ISOPH/REG 70/30 (*) 1 UNITS UNIT SUBCUT SCH ×2 (09:10→18:12)
[2019-03-10] MEDS: predniSONE TAB* 10 MG PO SCH (09:10)
[2019-03-10] MEDS: amLODIPine TAB* 5 MG PO SCH (09:10)
[2019-03-10] MEDS: acetaZOLAMIDE TAB* 250 MG PO SCH (09:10)
[2019-03-10] MEDS: Atorvastatin* 40 MG TAB PO SCH (09:10)
[2019-03-10] MEDS: Insulin LISPRO* 1 UNITS UNIT SUBCUT SCH ×7 (09:11→22:35)
[2019-03-10] MEDS: Enoxaparin(*) 40 MG/0.4 ML SYR SUBCUT SCH (18:11)
[2019-03-10] MEDS ORDERED: Insulin LISPRO* 1 UNITS UNIT SUBCUT ONE (21:45)
[2019-03-11] MEDS: Albuterol 2.5 MG/3 ML NEB.SOL* (0.083%) INH SCH (07:49)
[2019-03-11] MEDS: Mometasone/Formoter 200/5 MDI INH SCH (07:49)
[2019-03-11] MEDS: SPIRIVA Respimat* (tiotropium) 2.5 mcg/inh Inhaler INH SCH (07:49)
[2019-03-11] MEDS: Atorvastatin* 40 MG TAB PO SCH (10:10)
[2019-03-11] MEDS: predniSONE TAB* 10 MG PO SCH (10:10)
[2019-03-11] MEDS: amLODIPine TAB* 5 MG PO SCH (10:10)
[2019-03-11] MEDS: Insulin LISPRO* 1 UNITS UNIT SUBCUT SCH ×4 (10:10→13:15)
[2019-03-11] MEDS: Insulin ISOPH/REG 70/30 (*) 1 UNITS UNIT SUBCUT SCH (10:11)
[2019-03-11] MEDS: cefTRIAXone(*) 1 GM in NS 0.9% 50 ML* 50 ML IVPB SCH (10:12)
--- NOTE | 2019-03-11 10:28 | PN ---
Progress Note - Progress Note Date of Service: 03/11/19 SOAP: Subjective: CC: short of breath HPI: 53 year old man with cough and short of breath for a few days in the setting of chronic respiratory failure. He denies being short of breath today. No fever, rash, or diarrhea. Objective: Vital Signs Temp 36.3 C 03/11/19 07:15 Pulse 98 03/11/19 07:52 Resp 86 03/11/19 07:52 BP 130/71 03/11/19 07:15 Pulse Ox 98 03/11/19 07:52 Intake & Output 03/10/19 03/11/19 03/11/19 18:59 06:59 18:59 Intake Total 1280 0 360 Output Total 700 1350 Balance 580 -1350 360 Intake: IV Fluids 30 NS (0.9%) 30 IVPB 50 Ceftriaxone 50 Oral 1200 0 360 Output: Urine 700 1350 Other: Estimated Void Large # Voids 2 Gen:Awake, no distress HEENT: no thrush Heart:Regular, no murmur Lungs:no wheeze or rale Abd:+BS NTND soft Skin: no rash Laboratory Results - last 24 hr 03/10/19 03/10/19 03/10/19 12:05 17:00 17:09 Glucose 285 H POC Glucose (mg/dL) > 444 H* Glucose Meter Confirm 439 H 03/10/19 03/10/19 03/11/19 20:04 20:25 07:20 Glucose POC Glucose (mg/dL) > 444 H* 163 H Glucose Meter Confirm 416 H Assessment: 1. Pneumonia, community acquired 2. Chronic respiratory failure 3. T2DM 4. ALEJANDRO Plan: 1. had 5 days of azithromycin, has had 6 days ceftriaxone; can have augmentin 500 mg twice daily for 3 more days if he leaves today. Recheck CXR PA and LAT 1 month.
[2019-03-11 11:20] VITALS: BP 127/67
--- NOTE | 2019-03-11 15:19 | DS ---
CC: Dr. Elisha Vuong * DATE OF ADMISSION: 03/05/2019. DATE OF DISCHARGE: 03/11/2019. Patient signed out AMA. HISTORY OF PRESENT ILLNESS: This 53-year-old man presented with shortness of breath and cough. He was found to have acute and chronic respiratory failure with hypercapnia and community-acquired pneumonia. Initially there was some concern for tuberculosis, but this was ruled out. He was treated with BiPAP and Vapotherm. It was felt he would need BiPAP, either a trilogy or Astral machine on discharge. He received six doses of Acetazolamide which did help reduce his serum bicarbonate. He seemed to be in fairly good condition at the time of discharge, but I think he is dependent on the BiPAP at night. Due to the holiday, it could not be authorized by the insurance company. On the day of discharge, the patient signed out AMA rather than wait to have the trilogy machine available. I did send in prescriptions for Cefuroxime 500 mg b.i.d., ten doses; Prednisone 5 mg to taper from five a day to zero over five days; Amlodipine 10 mg daily which will replace his Lisinopril. As noted above, the patient signed out AMA. CONDITION ON DISCHARGE: Guarded. DISPOSITION ON DISCHARGE: The patient signed out AMA. [id number]/[facility] #: [id number] MTDD
--- NOTE | 2019-03-11 15:47 | PN ---
Progress Note - Progress Note Date of Service: 03/11/19 - Pulm f/u Note: Pt reports feeling better, denies SOB. Cough has improved Atorvastatin* [Lipitor 40 MG*] 40 mg PO DAILY 10/23/17 [History Confirmed ] Fluticasone-Salmeterol 500-50* [Advair Diskus 500-50*] 2 puff INH BID 10/23/17 [ History Confirmed 03/05/19] Tiotropium CAPSULE (NF) [Spiriva CAPSULE (NF)] 1 cap INH QAM 10/23/17 [History Confirmed 03/05/19] Albuterol 0.5% CONC NEB.DENIS* 2 puff INH Q4H PRN 09/15/18 [History Confirmed 09/16] Insulin Lispro Protamin/Lispro [Humalog Mix 75-25 Vial] 40 unit SUBCUT BID 03/05 [History Confirmed 03/05/19] Amlodipine Besylate [Norvasc] 10 mg PO DAILY #30 tablet 03/11/19 [Rx] Cefuroxime 500 MG(NF) 500 mg PO BID 5 Days #10 tab 03/11/19 [Rx] amLODIPine TAB* [Norvasc 5 mg TAB*] 10 mg PO DAILY #30 tab 03/11/19 [Rx] predniSONE TAB* [Deltasone 10 MG TAB*] 10 mg PO DAILY #9 tab 03/11/19 [Rx] predniSONE TAB* [Deltasone TAB*] 5 mg PO DAILY #21 tab 03/11/19 [Rx] Vital Signs Temp Pulse Resp BP Pulse Ox 97.3 F 81 16 127/67 98 03/11/19 11:20 03/11/19 11:20 03/11/19 11:20 03/11/19 11:20 03/11/19 11:20 O/E: Pt in NAD, sittingh up HEENT: PERRLA, no JVD Lungs: Diminished air entry, no wheeze CVS: S1, S2+, regular Abd: Soft, BS+ Ext: Normal ROM Skin: No rash Neuro: NO focal deficits Laboratory Results - last 24 hr 03/10/19 03/10/19 03/10/19 17:00 17:09 20:04 POC Glucose (mg/dL) > 444 H* > 444 H* Glucose Meter Confirm 439 H 03/10/19 03/11/19 03/11/19 20:25 07:20 12:22 POC Glucose (mg/dL) 163 H Glucose Meter Confirm 416 H 300 H I/R 53yo M with PMH of COPD, type 2 DM, ALEJANDRO, HLD, HTN, who presented to the ED with worsening dyspnea, found to have COPD exacerbation secondary to pneumonia. AFBX3 negative, isolation removed. Hypercapnic and acute on chronic hypoxic resp failure, improved significantly since admission Currently requiring 3 L O2, titrate to keep O2 around 92% Overall improved, wanting to leave Trilogy set up pending insurance approval, pt not willing to wait c/w prednisone taper Will f/u in pulm clinic as out pt Pt signed Leidy MONTE to contact pt to set up Trilogy
== END 2019-03-11 14:30 | disposition left against medical advice (07) | DRG 133 ==
LOC: ED 13:38 → ICU 17:17 → MED 03-08 14:44
PROVIDERS: ADMIT Internal Medicine; ATTEND Internal Medicine
DX: J96.22 Acute and chronic respiratory failure with hypercapnia (principal); J18.9 Pneumonia, unspecified organism; I24.8 Other forms of acute ischemic heart disease; J44.1 Chronic obstructive pulmonary disease with (acute) exacerbation; J44.0 Chronic obstructive pulmonary disease with (acute) lower respiratory infection; E66.2 Morbid (severe) obesity with alveolar hypoventilation; Z99.81 Dependence on supplemental oxygen; E87.5 Hyperkalemia; J96.21 Acute and chronic respiratory failure with hypoxia; I10 Essential (primary) hypertension; E78.5 Hyperlipidemia, unspecified; R74.8 Abnormal levels of other serum enzymes; F17.210 Nicotine dependence, cigarettes, uncomplicated; Z68.34 Body mass index [BMI] 34.0-34.9, adult; Z91.19 Patient's noncompliance with other medical treatment and regimen; Z79.84 Long term (current) use of oral hypoglycemic drugs; Z79.51 Long term (current) use of inhaled steroids; Z79.899 Other long term (current) drug therapy; Z88.1 Allergy status to other antibiotic agents; Z91.018 Allergy to other foods; Z81.1 Family history of alcohol abuse and dependence; Z83.79 Family history of other diseases of the digestive system; Z82.5 Family history of asthma and other chronic lower respiratory diseases; Z79.4 Long term (current) use of insulin
CPT/HCPCS: 36415; 71045; 71250; 80048; 80053; 82803; 82947; 83036; 83880; 84484; 85025; 87116; 87206; 87641; 87899; 93005; 94640; 94660; 94668; 96365; 96375; 99285; A9270-GY; J0456; J0696; J1650; J2930; J3535; J7512

== ENCOUNTER 2019-04-05 15:58 | Emergency (ER) | payer OTHER ==
--- OUTSIDE RECORDS SUMMARY | 2019-04-05 17:20 | XMS REPORT | Continuity of Care Document ---
:1965 External Reference #:[id number] Author Name Maegan Adam O.D. (transmitted by agent of provider Bharati Macias ) Address [address] [place] [id number] Care Team Providers Name Role Phone Daniele Esqueda M.D. - Family Care Team Information Desktop Administrator [phone] Medicine Elisha Vuong M.D. 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 Onset: 04/18/2016 Myopia Maegan Adam O.D. Onset: 01/03/2018 Regular astigmatism Maegan Adam O.D. Onset: 01/03/2018 Presbyopia Maegan Adam O.D. Onset: 01/03/2018 Social History Type Date Description Comments Sex Unknown ETOH Use Consumed liquor 2 times per day in the past Tobacco Use Start: Unknown Heavy tobacco smoker (more than 10 cigarettes/day) Recreational Drug Use Formerly used Marijuana sporadically Smoking Status Reviewed: 03/26/19 Heavy tobacco smoker (more than 10 cigarettes/day) Allergies, Adverse Reactions, Alerts Active Allergies Reaction Severity Comments Date Levaquin 04/18/2016 Medications Active Medications SIG Qnty Indications Ordering Provider Date Refresh Liquigel as needed 30ml Maegan Adam, 04/18/2016 1% O.D. Solution Ventolin HFA Unknown 108(90Base) mcg/Act Aerosol Advair Diskus inhale 1 dose by Unknown mouth every 12 500-50mcg/Dose Aerosol hours Lisinopril Unknown 40mg Tablets Atorvastatin Calcium Unknown 10mg Tablets Spiriva Respimat Unknown 2.5mcg/Act Aerosol Janumet XR TK 1 T PO qd In Unknown 100-1000mg The Morning Tablets ER 24HR Amlodipine Besylate TK 1 T PO D Unknown 10mg Tablets Immunizations Description No Information Available Vital Signs Description No Information Available Results Description No Information Available Procedures Date Code Description Status 03/26/2019 92141 Est Patient Comprehensive Exam Completed Medical Devices Description No Information Available Encounters Description No Information Available Assessments Date Code Description Provider 03/26/2019 E11.9 Type 2 diabetes mellitus without complications Maegan Adam O.D. Plan of Treatment 03/26/2019 - Maegan Adam O.D.E11.9 Type 2 diabetes mellitus without complicationsComments:Smoking can increase the risk of developing or worsening any eye related disease, as well as affect your overall health. If you are a smoker, we strongly recommend that you quit.If you are not a smoker, we strongly recommend that you do not start. You have diabetes. I do not detect any changes in both of your retinas from diabetes at this time. Proper control of your diabetes is important for the health of your eyes. Changes in your eyes from diabetes can happen without symptoms, so it is important that you have your eyes examined.Follow up:1 YEAR You can expect to have your eyes dilated at your next visit. If Dr. Adam orders any additional testing, it may require extra time. We recommend that you bring sunglasses, as dilation drops often make you light sensitive until they wear off. We always recommend you bring someone to drive you home if you are uncomfortable driving with your eyes dilated. If you have any questions before your next visit, feel free to call our office at . Functional Status Description No Information Available Mental Status Description No Information Available Referrals Description No Information Available
--- OUTSIDE RECORDS SUMMARY | 2019-04-05 17:20 | XMS REPORT | Continuity of Care Document ---
:1965 External Reference #:[id number] Author Name Araceli Rodriguez MD (transmitted by agent of provider Mary Hernández) Address [address], [address] [place] [id number] Care Team Providers Name Role Phone Elisha Vuong DO - Family Care Team Information [facility] Worker Medicine Problems Active Problems Provider Date Chronic obstructive lung disease Araceli Rodriguez MD Onset: 07/10/2015 Disturbance in sleep behavior Araceli Rodriguez MD Onset: 07/10/2015 Tobacco user Araceli Rodriguez MD Onset: 07/10/2015 Obstructive sleep apnea syndrome Araceli Rodriguez MD Onset: 09/07/2015 Obesity Araceli Rodriguez MD Onset: 09/07/2015 Social History Type Date Description Comments Sex Unknown ETOH Use Occasionally consumes alcohol Tobacco Use Start: Unknown Patient is a current less than 1/PPD - had smoker, smokes every Nicotine gum but not day using, 4-5 daily now Has smoked for 35 years Recreational Drug Use Current Drug User occasional marijuana Smoking Status Reviewed: 03/21/19 Patient is a current less than 1/PPD - had smoker, smokes every Nicotine gum but not day using, 4-5 daily now Has smoked for 35 years Exercise Type/Frequency Exercises sporadically Allergies, Adverse Reactions, Alerts Active Allergies Reaction [...] 4-6 hours as Unknown 07/09/2015 needed Nebulizer Amlodipine Besylate 1 by mouth every Unknown day 2.5mg Tablets [place] use twice daily Unknown 31G X 5 mm Mis Accu-Chek Softclix use with blood Unknown [place] [facility] [place] Crystal Chem check blood sugars Unknown Strips 3 times a day Mis Atorvastatin Calcium 1 by mouth every Unknown day 40mg Tablets Proventil HFA inhale two puffs Unknown by mouth four 108(90Base) mcg/Act times a day as Aerosol needed Lisinopril 1 by mouth every Unknown 40mg Tablets day Amlodipine Besylate 1 by mouth every Unknown 5mg day Tablets Oxygen please use o2 at Unknown Misc 2l/min at night and prn days History Medications Novolog Mix 70/30 30 units [...] Available Vital Signs Date Vital Result Comment 03/21/2019 1:31pm Height 67.25 inches 5'7.25" Weight 226.00 lb Heart Rate 99 /min BP Systolic Sitting 160 mmHg BP Diastolic Sitting 90 mmHg O2 % BldC Oximetry 96 % BMI (Body Mass Index) 35.1 kg/m2 02/01/2019 11:41am Height 67.25 inches 5'7.25" Weight 230.00 lb Heart Rate 97 /min BP Systolic Sitting 155 mmHg left arm, reg cuff BP Diastolic Sitting 84 mmHg left arm, reg cuff BMI (Body Mass Index) 35.8 kg/m2 Results Description No Information Available Procedures Description No Information Available Medical Devices Description No Information Available Encounters Type Date Location Provider Dx Diagnosis Office Visit 03/21/2019 [facility] Araceli Jennifer J44.9 Chronic obstructive 2:00p Sleep Services Of pulmonary disease, Day Trader unspecified G47.33 Obstructive sleep apnea (adult) (pediatric) J96.10 Chronic respiratory failure, unsp w hypoxia or hypercapnia J98.4 Other disorders of lung Office Visit 03/11/2019 2:00p Pul[facility]ology And Araceli J18.9 Pneumonia, Sleep Services Of MD Jennifer unspecified Day Trader organism J44.1 Chronic obstructive pulmonary disease w (acute) exacerbation J96.21 Acute and chronic respiratory failure with hypoxia J96.22 Acute and chronic respiratory failure with hypercapnia G47.33 Obstructive sleep apnea (adult) (pediatric) Office Visit 03/09/2019 1:59p Pul[facility]ology And Araceli J18.9 Pneumonia, Sleep [facility] Of MD Jennifer unspecified Day Trader organism J44.1 Chronic obstructive pulmonary disease w (acute) exacerbation J96.21 Acute and chronic respiratory failure with hypoxia J96.22 Acute and chronic respiratory failure with hypercapnia G47.33 Obstructive sleep apnea (adult) (pediatric) Office Visit 03/08/2019 1:59p Pul[facility]ology And Araceli J18.9 Pneumonia, Sleep Services Of MD Jennifer unspecified Day Trader organism J44.1 Chronic obstructive pulmonary disease w (acute) exacerbation G47.33 Obstructive sleep apnea (adult) (pediatric) Office Visit 03/07/2019 1:58p Pulmonology And Araceli J18.9 Pneumonia, Sleep Services Of MD Jennifer unspecified Day Trader organism J44.1 Chronic obstructive pulmonary disease w (acute) exacerbation G47.33 Obstructive sleep apnea (adult) (pediatric) Office Visit 03/06/2019 1:58p Pulmonology And Araceli J96.10 Chronic Sleep Services Of MD Jennifer respiratory Day Trader failure, unsp w hypoxia or hypercapnia R91.8 Other nonspecific abnormal finding of lung field Z87.09 Personal history of other diseases of the respiratory system Z87.891 Personal history of nicotine dependence Office Visit 02/01/2019 Amy Cadet and Bran Ching, E11.65 Type 2 diabetes 12:00p Endocrinology of mellitus with Day Trader hyperglycemia Z79.4 exterminator termite (current) use of insulin R68.82 Decreased libido Office Visit 09/28/2018 Amy Ching, E11.69 Type 2 diabetes 11:00a Endocrinology of mellitus with Day Trader other specified complication I10 Essential (primary) hypertension Z79.4 exterminator termite (current) use of insulin E78.5 Hyperlipidemia, unspecified Assessments Date Code Description Provider 03/21/2019 J44.9 Chronic obstructive pulmonary disease, Araceli Rodriguez MD unspecified 03/21/2019 G47.33 Obstructive sleep apnea (adult) (pediatric) Araceli Rodriguez MD 03/21/2019 J96.10 Chronic respiratory failure, unspecified Araceli Rodriguez MD whether with hypoxia or hypercapnia 03/21/2019 J98.4 Other disorders of lung Araceli Rodriguez MD 03/11/2019 J18.9 Pneumonia, unspecified organism Araceli Rodriguez MD 03/11/2019 J44.1 Chronic obstructive pulmonary disease with Araceli Rodriguez MD (acute) exacerbation 03/11/2019 J96.21 Acute and chronic respiratory failure with Araceli Rodriguez MD hypoxia 03/11/2019 J96.22 Acute and chronic respiratory failure with Araceli Rodriguez MD hypercapnia 03/11/2019 G47.33 Obstructive sleep apnea (adult) (pediatric) Araceli Rodriguez MD 03/09/2019 J18.9 Pneumonia, unspecified organism Araceli Rodriguez MD 03/09/2019 J44.1 Chronic obstructive pulmonary disease with Araceli Rodriguez MD (acute) exacerbation 03/09/2019 J96.21 Acute and chronic respiratory failure with Araceli Rodriguez MD hypoxia 03/09/2019 J96.22 Acute and chronic respiratory failure with Araceli Rodriguez MD hypercapnia 03/09/2019 G47.33 Obstructive sleep apnea (adult) (pediatric) Araceli Rodriguez MD 03/08/2019 J18.9 Pneumonia, unspecified organism Araceli Rodriguez MD 03/08/2019 J44.1 Chronic obstructive pulmonary disease with Araceli Rodriguez MD (acute) exacerbation 03/08/2019 G47.33 Obstructive sleep apnea (adult) (pediatric) Araceli Rodriguez MD 03/07/2019 J18.9 Pneumonia, unspecified organism Araceli Rodriguez MD 03/07/2019 J44.1 Chronic obstructive pulmonary disease with Araceli Rodriguez MD (acute) exacerbation 03/07/2019 G47.33 Obstructive sleep apnea (adult) (pediatric) Araceli Rodriguez MD 03/06/2019 J96.10 Chronic respiratory failure, unspecified Araceli Rodriguez MD whether with hypoxia or hypercapnia 03/06/2019 R91.8 Other nonspecific abnormal finding of lung Araceli Rodriguez MD field 03/06/2019 Z87.09 Personal history of other diseases of the Araceli Rodriguez MD respiratory system 03/06/2019 Z87.891 Personal history of nicotine dependence Araceli Rodriguez MD 02/01/2019 E11.65 Type 2 diabetes mellitus with hyperglycemia Bran Ching MD 02/01/2019 Z79.4 exterminator termite (current) use of insulin Bran Ching MD 02/01/2019 R68.82 Decreased libido Bran Ching MD 09/28/2018 E11.69 Type 2 diabetes mellitus with other specified Bran Ching MD complication 09/28/2018 I10 Essential (primary) hypertension Bran Ching MD 09/28/2018 Z79.4 residential (current) use of insulin Bran Ching MD 09/28/2018 E78.5 Hyperlipidemia, unspecified Bran Ching MD Plan of Treatment Future Appointment(s):05/09/2019 9:00 am - Araceli Rodriguez MD at [facility]05/07/2019 8:00 am - Bran Ching MD at [facility]03/21/2019 - Araceli Rodriguez MDJ44.9 Chronic obstructive pulmonary disease, unspecifiedNew Labs:Alpha 1 Antitrypsin Phenotypin, Ordered: 03/21/19New Orders:PFTW/Spirometry Vol Pre/Post Bronchdilat Dlco Complete, Ordered: 03/21/19Follow up:3 erjeaL54.33 Obstructive sleep apnea (adult) (pediatric)New Orders:Home Sleep Testing, Ordered: J96.10 Chronic respiratory failure, unspecified whether with hypoxia or [id number] Other disorders of lung Functional Status Description No Information Available Mental Status Description No Information Available Referrals Description No Information Available
--- OUTSIDE RECORDS SUMMARY | 2019-04-05 17:20 | XMS REPORT | Continuity of Care Document ---
:1965 External Reference #:[id number] Author Name ENRIQUE Ramirez Address [address] [place] [id number] Problems Active Problems Provider Date Adult health examination Onset: 08/27/2018 Type 2 diabetes mellitus without complication Onset: 08/22/2017 Chronic kidney disease Onset: 08/17/2017 Obstructive sleep apnea syndrome Onset: 08/14/2017 Obesity Onset: 08/14/2017 Hypertensive disorder Onset: 08/14/2017 Essential hypertension Onset: 08/14/2017 Inactive Problems Benign essential hypertension Onset: 12/23/2018 Inactive: 12/23/2018 Chronic obstructive lung disease Onset: 12/23/2018 Inactive: 12/23/2018 Type II diabetes mellitus uncontrolled Onset: 12/23/2018 Inactive: 12/23/2018 Social History Type Date Description Comments Sex Unknown Tobacco Use Start: Unknown Light tobacco smoker (10 or fewer cigarettes/day) Smoking Status Reviewed: 03/14/19 Light tobacco smoker (10 or fewer cigarettes/day) Allergies, Adverse Reactions, Alerts Active Allergies Reaction Severity Comments Date Levaquin Anaphylaxis due to substance 01/04/2019 Medications Active Medications SIG Qnty Indications Ordering Date Provider Albuterol Sulfate Inhale 2 Puffs By 18units Elisha 03/25/2019 HFA Mouth Every 4 Karnow, DO 108(90Base) Hours as Needed mcg/Act Aerosol Cpap Supplies Full face mask, 1units Elisha 03/15/2019 headgear, tubing Karnow, DO and filter. Dx is severe COPD BD Insulin Syringe 1 needle 2 x daily 2boxes ENRIQUE Ramirez 03/14/2019 Ultrafine/0.5ML/31G X 5/16" 31G X 5/16" 0.5 ML Misc Spiriva Respimat 2 puffs inhalation 12gm ENRIQUE Jules 01/16/2019 every day 2.5mcg/Act Aerosol Ipratropium 3 ML every 6 hours 60units Unknown 12/21/2018 Rolfe/Albuterol Inhalation Sulfate 0.5-2.5(3)mg/3ML Solution Advair Diskus 1 twice each day 1units Unknown 09/17/2018 Inhalation 500-50mcg/Dose Aerosol 1St Tier Unifine 1 twice daily N/A 1units Unknown 08/27/2018 Pentips /Mini/31BA1TY 31G X 5 mm Misc Accu-Chek Crystal Plus 1 three times 1units Unknown 09/24/2017 daily In vitro Strips Accu-Chek Multiclix 1 three times 1units Unknown 09/24/2017 Lancets daily N/A Misc Atorvastatin Calcium 1 daily Oral 90tabs Unknown 08/22/2017 40mg Tablets Lisinopril 1 daily Oral 30tabs Unknown 08/14/2017 40mg Tablets Amlodipine Besylate Oral; Take 1 30tabs Unknown 08/14/2017 Tablet By Mouth 5mg Tablets Once Daily History Medications Wixela Inhub Inhale 1 puff By 60units Kalyn Louise, 01/12/2019 - 500-50mcg/Dose Mouth Twice Daily 03/26/2019 Aerosol Amlodipine Besylate 1 daily Oral; 30tabs Unknown 12/21/2018 - 2.5mg take daily in 03/26/2019 Tablets addition to 5 mg for daily total of 7.5mg Amlodipine Besylate 1 daily Oral; 30tabs Unknown 11/15/2018 - 2.5mg take daily in 12/15/2018 Tablets addition to 5 mg for daily total of 7.5mg Jardiance 1 Daily Oral; 30tabs Unknown 09/30/2018 - 10mg Tablets take in am 03/26/2019 Metformin HCL ER 1 at bedtime 30tabs Unknown 09/30/2018 - 750mg Oral; increase to 03/26/2019 Tablets ER 24HR 1500mg after 2-4 weeks Novolog Mix 70/30 inject twice 10units Unknown 09/30/2018 - daily 03/26/2019 (70-30)100Unit/ML Subcutaneous; 30 Suspension units bid before you eat. increase dose by 5units every week until pre-meal blood glucose less than 150 Immunizations Description No Information Available Vital Signs Date Vital Result Comment 03/27/2019 8:19am BP Systolic 130 mmHg BP Diastolic 62 mmHg Heart Rate 93 /min Body Temperature 98.1 F O2 % BldC Oximetry 89 % 03/14/2019 8:59am BP Systolic 120 mmHg BP Diastolic 70 mmHg Height 68.5 inches 5'8.50" Weight 225.00 lb Heart Rate 81 /min Body Temperature 98.0 F O2 % BldC Oximetry 95 % BMI (Body Mass Index) 33.7 kg/m2 Results Test Acquired Facility Test Result H/L Range Note Date Laboratory test 03/05/2019 [facility] Troponin-I 0.05 ng/mL Critical <0.[address] (TnI) [place] [address] [phone] Venous Blood 03/05/2019 [facility] Venous 7.33 Normal 7.32- 7.[address] [place] [address] [phone] Venous Pco2 71 mmHg High 41-51 Venous Po2 62.0 mmHg High 35-45 Venous O2 Saturation 93.6 % High 70-80 Venous Blood Base Excess 8.7 mmol/L High 0.0-4.0 2 Venous Bicarbonate Hco3 31.5 mmol/L High 24-28 Venous Blood 03/05/2019 [facility] Venous Blood 7.32 Normal 7.32-7.[address] [place] [address] [phone] Venous Pco2 91 mmHg High 41-51 Venous Po2 55.0 mmHg High 35-45 Venous O2 Saturation 88.8 % High 70-80 Venous Blood Base Excess 16.1 mmol/L High 0.0-4.0 3 Venous Bicarbonate Hco3 37.2 mmol/L High 24-28 CBC Auto 03/05/2019 [facility] White Blood 6.0 10^3/uL Normal 3.5-10.[address] [place] [address] [phone] Red Blood Count 5.23 10^6/uL Normal 4.18-5.48 Hemoglobin 15.0 g/dL Normal 14.0-18.0 Hematocrit 46 % Normal 42-52 Mean Corpuscular Volume 88 fL Normal 80-94 Mean Corpuscular Hemoglobin 29 pg Normal 27-31 Mean Corpuscular HGB Conc 33 g/dL Normal 31-36 Red Cell Distribution Width 14 % Normal 10-15 Platelet Count 103 10^3/uL Low 150-450 Mean Platelet Volume 8.1 fL Normal 7.4-10.4 Abs Neutrophils 3.1 10^3/uL Normal 1.5-7.7 Abs Lymphocytes 1.7 10^3/uL Normal 1.0-4.8 Abs Monocytes 1.0 10^3/uL High 0-0.8 Abs Eosinophils 0.1 10^3/uL Normal 0-0.6 Abs Basophils 0.1 10^3/uL Normal 0-0.2 Abs Nucleated RBC 0.0 10^3/uL Granulocyte % 52.3 % Lymphocyte % 28.7 % Monocyte % 17.2 % Eosinophil % 0.9 % Basophil % 0.9 % Nucleated Red Blood Cells % 0.0 Laboratory test 03/05/2019 [facility] B-Type 27 pg/mL <=[address] [place] [address] Peptide BNP [phone] Comp Metabolic 03/05/2019 [facility] Sodium 137 Normal 135- [address] mmol/[place] [address] [phone] Potassium 4.7 mmol/L Normal 3.5-5.0 Chloride 92 mmol/L Low 101-111 Glucose 180 mg/dL High 70-100 Blood Urea Nitrogen 17 mg/dL Normal 6-24 Creatinine 0.56 mg/dL Low 0.67-1.17 BUN/Creatinine Ratio 30.4 High 8-20 Calcium 9.1 mg/dL Normal 8.6-10.3 Total Protein 6.6 g/dL Normal 6.4-8.9 Albumin 3.7 g/dL Normal 3.2-5.2 Globulin 2.9 g/dL Normal 2-4 Albumin/Globulin Ratio 1.3 Normal 1-3 Total Bilirubin 0.50 mg/dL Normal 0.2-1.0 Alkaline Phosphatase 37 U/L Normal 34-104 Alt 31 U/L Normal 7-52 Ast 28 U/L Normal 13-39 Egfr Non- 153.2 >60 Egfr 185.4 >60 4 Co2 Carbon Dioxide 42 mmol/L Critical high 22-32 5 Anion Gap 3 mmol/L Normal 2-11 Laboratory 03/05/2019 [facility] Troponin-I 0.04 Critical < 0.04 6 test finding [address] (TnI) ng/[place] [address] [phone] BP Goal 12/21/2018 N2N/CCD Import BP Goal <130/80 Co2 12/17/2018 N2N/CCD Import Co2 41 Critical 22-32 mmol/L low mmol/L Creatinine 12/17/2018 N2N/CCD Import Creatinine 0.55 Low 0.67-1.1 mg/dL 7 mg/dL GFR Afr Amer 12/17/2018 N2N/CCD Import GFR Afr Amer 189.3 _ >60 GFR Non Afr 12/17/2018 N2N/CCD Import GFR Non Afr 156.4 _ >60 Amer Amer Globulin 12/17/2018 N2N/CCD Import Globulin 2.6 g/dL 2-4 g/dL Glucose 12/17/2018 N2N/CCD Import Glucose 260 High 70-100 mg/dL mg/dL Hemoglobin A1c 12/17/2018 N2N/CCD Import Hemoglobin 9.7 % High 4.0-5.6 A1c % Potassium 12/17/2018 N2N/CCD Import Potassium 5.0 3.5-5.0 mmol/L mmol/L Protein, Total 12/17/2018 N2N/CCD Import Protein, 7.3 g/dL 6.4-8.9 Total g/dL Sodium 12/17/2018 N2N/CCD Import Sodium 141 135-145 mmol/L mmol/L Chloride 12/17/2018 N2N/CCD Import Chloride 93 Low 101-111 mmol/L mmol/L Calcium 12/17/2018 N2N/CCD Import Calcium 9.9 8.6-10.3 mg/dL mg/dL BUN/Creat 12/17/2018 N2N/CCD Import BUN/Creat 27.3 _ High 8-20 Ratio Ratio BUN 12/17/2018 N2N/CCD Import BUN 15 mg/dL 6-24 mg/dL Bilirubin 12/17/2018 N2N/CCD Import Bilirubin 0.50 0.2-1.0 Total Total mg/dL mg/dL Ast 12/17/2018 N2N/CCD Import Ast 30 U/L 13-39 U/L Anion Gap 12/17/2018 N2N/CCD Import Anion Gap 7 mmol/L 2-11 mmol/L Alt 12/17/2018 N2N/CCD Import Alt 26 U/L 7-52 U/L Alk Phos 12/17/2018 N2N/CCD Import Alk Phos 54 U/L 34-104 U/L Albumin 12/17/2018 N2N/CCD Import Albumin 4.7 g/dL 3.2-5.2 g/dL A/G Ratio 12/17/2018 N2N/CCD Import A/G Ratio 1.8 _ 1-3 1 Result TnIDx:0.05 Called to [id number] at: 18:09:03 by:[id number] Read back by: [id number] Troponin-I testing on Plasma Separator Tubes (PST) has a known false positive rate of 0.20-0.40%. All positive troponins reflex immediately to secondary confirmatory testing. Using the Tã Em Bé DxI 800 Access Immunoassay systems, the 99th percentile upper reference limit was demonstrated to be < 0.03 ng/mL. 2 Reference ranges based on room air. 3 Reference ranges based on room air. 4 Because ethnic data is not always readily available, this report includes an eGFR for both -Americans and non- Americans. The National Kidney Disease Education Program (NKDEP) does not endorse the use of the MDRD equation for patients that are not between the ages of 18 and 70, are , have extremes of body size, muscle mass, or nutritional status, or are non- or non-. According to the National Kidney Foundation, irrespective of diagnosis, the stage of the disease is based on the level of kidney function: Stage Description GFR(mL/min/1.73 m(2)) 1 Kidney damage with normal or decreased GFR 90 2 Kidney damage with mild decrease in GFR 60-89 3 Moderate decrease in GFR 30-59 4 Severe decrease in GFR 15-29 5 Kidney failure <15 (or dialysis) 5 Critical Result CO2:42 Called to [id number] at: 14:51:14 by:[id number] Read back by:[id number] Result TnIDx:0.04 Called to [id number] at: 14:51:14 by:[id number] Read back by:[id number] Troponin-I testing on Plasma Separator Tubes (PST) has a known false positive rate of 0.20-0.40%. All positive troponins reflex immediately to secondary confirmatory testing. Using the Tã Em Bé DxI 800 Access Immunoassay systems, the 99th percentile upper reference limit was demonstrated to be < 0.03 ng/mL. Procedures Description No Information Available Medical Devices Description No Information Available Encounters Type Date Location Provider Dx Diagnosis Office Visit 03/27/2019 8:15a [facility] Annette Hernández DEVELOPER PROGRAMMER J44.9 Chronic obstructive pulmonary disease, unspecified F17.200 Nicotine dependence, unspecified, uncomplicated Office Visit 03/14/2019 9:00a [facility] Annette Hernández DEVELOPER PROGRAMMER J44.9 Chronic obstructive pulmonary disease, unspecified J96.90 Respiratory failure, unsp, unsp w hypoxia or hypercapnia E11.9 Type 2 diabetes mellitus without complications Z68.33 Body mass index (BMI) 33.0-33.9, adult Assessments Date Code Description Provider 03/27/2019 J44.9 Chronic obstructive pulmonary disease, Annette Acevedotaclaudia, DEVELOPER PROGRAMMER unspecified 03/27/2019 F17.200 Nicotine dependence, unspecified, uncomplicated Annette Kristinatama, DEVELOPER PROGRAMMER 03/14/2019 J44.9 Chronic obstructive pulmonary disease, Annette Aittama, DEVELOPER PROGRAMMER unspecified 03/14/2019 J96.90 Respiratory failure, unspecified, unspecified Annette Aittama , DEVELOPER PROGRAMMER whether with hypoxia or hypercapnia 03/14/2019 E11.9 Type 2 diabetes mellitus without complications Annette Aittama , DEVELOPER PROGRAMMER 03/14/2019 Z68.33 Body mass index (BMI) 33.0-33.9, adult Annette Acevedotaclaudia, DEVELOPER PROGRAMMER Plan of Treatment 03/27/2019 - Annette Acevedotaclaudia, FNPJ44.9 Chronic obstructive pulmonary disease, unspecifiedComments:Continue to wear home O2. Continue CPAP until triology machine approved. Continue to work with Pulm on steps to get approved. Contact office if there is anything we can do to assist in this process. Quit smoking.F17.200 Nicotine dependence, unspecified, uncomplicatedAllComments:Eye exam yesterday. PN requested. Functional Status Description No Information Available Mental Status Description No Information Available Referrals Refer to Reason for Referral Status Appt Date Araceli Rodriguez Follow up for recent respiratory failure Sent hospitalization. Consult with Dr. Rodriguez while in [facility]. Requesting him to be seen in the next week. [address] [place] [id number]
--- OUTSIDE RECORDS SUMMARY | 2019-04-05 17:20 | XMS REPORT | Continuity of Care Document ---
:1965 External Reference #:[id number] Author Name ENRIQUE Ramirez Address [address] [place] [id number] Problems Active Problems Provider Date Adult health [...] Medications SIG Qnty Indications Ordering Date Provider BD Insulin Syringe 1 needle 2 x daily 2boxes ENRIQUE Ramirez 03/14/2019 Ultrafine/0.5ML/31G X 5/16" 31G X 5/16" 0.5 ML Misc Spiriva Respimat 2 puffs inhalation 12gm ENRIQUE Jules 01/16/2019 every day 2.5mcg/Act Aerosol Wixela Inhub Inhale 1 puff By 60units Kalyn Louise, 01/12/2019 Mouth Twice Daily MD 500-50mcg/Dose Aerosol Ipratropium 3 ML every 6 hours 60units Unknown 12/21/2018 [place]/Albuterol Inhalation Sulfate 0.5-2.5(3)mg/3ML Solution Amlodipine Besylate 1 daily Oral; 30tabs Unknown 12/21/2018 take daily in 2.5mg Tablets addition to 5 mg for daily total of 7.5mg Jardiance 1 Daily Oral; 30tabs Unknown 09/30/2018 10mg take in am Tablets Metformin HCL ER 1 at bedtime 30tabs Unknown 09/30/2018 Oral; increase to 750mg Tablets ER 1500mg after 2-4 24HR weeks Novolog Mix 70/30 inject twice 10units Unknown 09/30/2018 daily (70-30)100Unit/ML Subcutaneous; 30 Suspension units bid before you eat. increase dose by 5units every week until pre-meal blood glucose less than 150 Advair Diskus 1 twice each day 1units Unknown 09/17/2018 Inhalation 500-50mcg/Dose Aerosol 1St Tier Unifine 1 twice daily N/A 1units Unknown 08/27/2018 Pentips /Mini/[id number] 31G X 5 mm Misc Accu-Chek Multiclix 1 three times 1units Unknown 09/24/2017 Lancets daily N/A Misc Accu-Chek Crystal Plus 1 three times 1units Unknown 09/24/2017 daily In vitro Strips Spiriva Handihaler 1 daily 30caps Unknown 09/14/2017 Inhalation 18mcg Capsules Ventolin HFA 2 puffs every 4 1units Unknown 09/11/2017 hours prn 108(90Base) mcg/Act Inhalation Aerosol Nicotine Polacrilex 1 every 2 hours 1units Unknown 08/22/2017 prn Mouth/throat 4mg Gum Atorvastatin Calcium 1 daily Oral 90tabs Unknown 08/22/2017 40mg Tablets Nicotine Mini 1 every 2 hours 1units Unknown 08/22/2017 4mg prn Mouth/throat Lozenges Proventil HFA Inhalation; 2 1units Unknown 08/14/2017 puffs Q 4h prn 108(90Base) mcg/Act Aerosol Lisinopril 1 daily Oral 30tabs Unknown 08/14/2017 40mg Tablets Amlodipine Besylate Oral; Take 1 30tabs Unknown 08/14/2017 Tablet By Mouth 5mg Tablets Once Daily History Medications Amlodipine Besylate 1 daily Oral; take 30tabs Unknown 11/15/2018 - 12/15 2.5mg daily in addition to Tablets 5 mg for daily total of 7.5mg Immunizations Description No Information Available Vital Signs Date Vital Result Comment 03/14/2019 8:59am BP Systolic 120 mmHg BP Diastolic 70 mmHg Height 68.5 inches 5'8.50" Weight 225.00 lb Heart Rate 81 /min Body Temperature 98.0 F O2 % BldC Oximetry 95 % BMI (Body Mass Index) 33.7 kg/m2 12/21/2018 9:03am BP Systolic 144 mmHg Weight 230.00 lb Heart Rate 109 /min Body Temperature 97.6 F O2 % BldC Oximetry 79 % Results Test Acquired Facility Test Result H/L Range Note Date Laboratory test 03/05/2019 [facility] Troponin-I 0.05 ng/mL Critical <0.[address] (TnI) [place] [address] [phone] Venous Blood 03/05/2019 [facility] Venous 7.33 Normal 7.32- 7.[address] [place] [address] [phone] Venous Pco2 71 mmHg High 41-51 Venous Po2 62.0 mmHg High 35-45 Venous O2 Saturation 93.6 % High 70-80 Venous Blood Base Excess 8.7 mmol/L High 0.0-4.0 2 Venous Bicarbonate Hco3 31.5 mmol/L High 24-28 Venous Blood 03/05/2019 [facility] Venous Blood 7.32 Normal 7.32-7.[address] [place] [address] [phone] Venous Pco2 91 mmHg High 41-51 Venous Po2 55.0 mmHg High 35-45 Venous O2 Saturation 88.8 % High 70-80 Venous Blood Base Excess 16.1 mmol/L High 0.0-4.0 3 Venous Bicarbonate Hco3 37.2 mmol/L High 24-28 CBC Auto 03/05/2019 [facility] White Blood 6.0 10^3/uL Normal 3.5-10.[address] [place] [address] [phone] Red Blood Count 5.23 10^6/uL Normal 4.18-5.48 [...] Blood Cells % 0.0 Laboratory test 03/05/2019 [facility] B-Type 27 pg/mL <=[address] [place] [address] Peptide BNP [phone] Comp Metabolic 03/05/2019 [facility] Sodium 137 Normal 135- [address] mmol/[place] [address] [phone] Potassium 4.7 mmol/L Normal 3.5-5.0 Chloride 92 [...] Gap 3 mmol/L Normal 2-11 Laboratory 03/05/2019 [facility] Troponin-I 0.04 Critical < 0.04 6 test finding [address] (TnI) ng/[place] [address] [phone] BP Goal 12/21/2018 N2N/CCD Import BP Goal [...] _ 1-3 1 Result TnIDx:0.05 Called to [id number] at: 18:09:03 by:[id number] Read back by: [id number] Troponin-I testing on Plasma Separator Tubes (PST) has a known false positive rate of 0.20-0.40%. All positive troponins reflex immediately to secondary confirmatory testing. Using the [employer] Access Immunoassay systems, the 99th percentile upper [...] dialysis) 5 Critical Result CO2:42 Called to [id number] at: 14:51:14 by:[id number] Read back by:[id number] Result TnIDx:0.04 Called to [id number] at: 14:51:14 by:[id number] Read back by:[id number] Troponin-I testing on Plasma Separator Tubes (PST) has a known false positive rate of 0.20-0.40%. All positive troponins reflex immediately to secondary confirmatory testing. Using the [employer] DxI 800 Access Immunoassay systems, the 99th percentile upper reference limit was demonstrated to be < 0.03 ng/mL. Procedures Description No Information Available Medical Devices Description No Information Available Encounters Type Date Location Provider Dx Diagnosis Office Visit 03/14/2019 9:00a [facility] Main ENRIQUE Ramirez J44.9 Chronic obstructive pulmonary disease, unspecified J96.90 Respiratory failure, unsp, unsp w hypoxia or hypercapnia E11.9 Type 2 diabetes mellitus without complications Z68.33 Body mass index (BMI) 33.0-33.9, adult Assessments Date Code Description Provider 03/14/2019 J44.9 Chronic obstructive pulmonary disease, unspecified ENRIQUE Ramirez 03/14/2019 J96.90 Respiratory failure, unspecified, unspecified Annette Hernández DESIGN SPECIALIST whether with hypoxia or hypercapnia 03/14/2019 E11.9 Type 2 diabetes mellitus without complications ENRIQUE Ramirez 03/14/2019 Z68.33 Body mass index (BMI) 33.0-33.9, adult ENRIQUE Ramirez Plan of Treatment Future Appointment(s):03/27/2019 8:15 am - ENRIQUE Ramirez at [facility] Main2018 - ENRIQUE RamirezJ44.9 Chronic obstructive pulmonary disease, unspecifiedComments:Trilogy--pending. Will hear today or tomorrow and [facility] is setting up. Declined BONITA call tomorrow. Will call us if issue getting machine. Understands importance of this.J96.90 Respiratory failure, unspecified , unspecified whether with hypoxia or hypercapniaComments:Resovling. Left AMA while waiting for Trilogy machine. [facility].On prednisone and antibiotic. 4 more days of steroids and antibiotic. Discharge documentation reviewed. Disc. severity of this and need for ceasing smoking. Will ask Dr. Rodriguez to see him in consult within the next week.Referral:Araceli Rodriguez,E11.9 Type 2 diabetes mellitus without complicationsComments:Continue to count carbs and reduce carbs. Number elevated due to prednisone. Will continue to monitor.Z68.33 Body mass index ( BMI) 33.0-33.9, adultAllNew Medication:BD Insulin Syringe Ultrafine/0.5ML/31G X 16" 31 G X 16" 0.5 ML - 1 needle 2 x daily Functional Status Description No Information Available Mental Status Description No Information Available Referrals Refer to Reason for Referral Status Appt Date Araceli Rodriguez Follow up for recent respiratory failure Created hospitalization. Consult with Dr. Rodriguez while in [facility]. Requesting him to be seen in the next week. [address] [place] [id number] [phone]
[2019-04-05] MEDS ORDERED: Albuterol/Ipratropium NEB.SOL* Albuterol 2.5 MG/Ipratropium 0.5 MG 3 ML INH ONE ×2 (18:41→19:07)
[2019-04-05] MEDS ORDERED: methylPREDNISolone 125 MG* 2 ML VIAL IV ONE (18:42)
[2019-04-05] MEDS ORDERED: Magnesium Sulfate 2 GM IV* 2 GM/50 ML BAG IVPB ONE (18:43)
--- NOTE | 2019-04-05 18:47 | ED ---
Shortness of Breath - HPI Summary HPI Summary: 53-year-old male with significant past medical history of COPD, asthma, diabetes type 2 reports the emergency department today complaining of shortness of breath. He states 2 months ago he was seen in the emergency department for carbon monoxide poisoning where he was supposed to get an air filter for his home however he couldn't afford this. He comes in today complaining of shortness of breath which he believes is due to carbon monoxide poisoning and an exacerbation of his COPD. He is speaking in 6 word broken sentences with some signs of labored breathing. His O2 saturation is 92% on 4 L of oxygen via nasal cannula. he reports he also has a headache which is not the worse headache of his life and denies visual hallucinations or lightheadedness/ vertigo. No other members of the household are symptomatic. he denies recent fevers, cough, chest pain, abdominal pain, rash, pain with urination. - History of Current Complaint Chief Complaint: EDShortnessOfBreath Time Seen by Provider: 04/05/19 18:31 Hx Obtained From: Patient Onset/Duration: Gradual Onset Timing: Constant Current Severity: Mild Dyspnea At: Exertion Aggravating Factors: Movement Alleviating Factors: Bronchodilators, Oxygen, Upright Position Associated Signs & Symptoms: Wheezing - Allergy/Home Medications Allergies/Adverse Reactions: Allergies Allergy/AdvReac Type Severity Reaction Status Date / Time banana Allergy Difficulty Verified 09/15/18 09:44 Breathing/Wheezing levofloxacin Allergy Difficulty Verified 09/15/18 09:44 Breathing PMH/Surg Hx/FS Hx/Imm Hx Endocrine/Hematology History: Reports: Hx Diabetes - Type II Denies: Hx Anticoagulant Therapy, Hx Thyroid Disease Cardiovascular History: Reports: Hx Hypertension, Other Cardiovascular Problems/ Disorders - 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 Denies: Hx Congestive Heart Failure, Hx Deep Vein Thrombosis, Hx Myocardial Infarction, Hx Pacemaker/ICD Respiratory History: Reports: Hx Asthma, Hx Chronic Obstructive Pulmonary Disease (COPD), Hx Pneumonia - 2012 Denies: Hx Lung Cancer, Hx Pulmonary Embolism GI History: Denies: Hx Gall Bladder Disease, Hx Gastrointestinal Bleed, Hx Ulcer, Hx Urosepsis History: Denies: Hx Kidney Stones, Hx Renal Disease Sensory History: Reports: Hx Contacts or Glasses - glasses Denies: Hx Eye Injury, Hx Vision Problem, Hx Deafness, Hx Hearing Aid, Hx Hearing Problem Opthamlomology History: Reports: Hx Contacts or Glasses - glasses Denies: Hx Eye Injury, Hx Vision Problem Neurological History: 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 Denies: Hx Dementia, Hx Migraine, Hx Seizures, Hx Transient Ischemic Attacks (TIA) Psychiatric History: Denies: Hx Anxiety, Hx Depression, Hx Schizophrenia, Hx Bipolar Disorder - Cancer History Cancer Type, Location and Year: DENIES Infectious Disease History: No Infectious Disease History: Denies: Hx Clostridium Difficile, Hx Hepatitis, Hx Human Immunodeficiency Virus (HIV), Hx of Known/Suspected MRSA, Hx Shingles, Hx Tuberculosis, Hx Known/ Suspected VRE, Hx Known/Suspected VRSA, History Other Infectious Disease, Traveled Outside the [place] in Last 30 Days - Family History Known Family History: Positive: Cardiac Disease, Hypertension, Diabetes - Social History Alcohol Use: Daily Alcohol Amount: 3-4 mixed drinks a day Hx Substance Use: No Substance Use Type: Reports: Marijuana Substance Use Comment - Amount & Last Used: occasionally Hx Tobacco Use: No Smoking Status (MU): Heavy Every Day Tobacco Smoker Type: Cigarettes Amount Used/How Often: 1/2 PPD Length of Time of Smoking/Using Tobacco: 35+ years Have You Smoked in the Last Year: Yes Review of Systems Constitutional: Negative Eyes: Negative ENT: Negative Cardiovascular: Negative Positive: Shortness Of Breath Gastrointestinal: Negative Genitourinary: Negative Musculoskeletal: Negative Skin: Negative Neurological: Negative Psychological: Normal All Other Systems Reviewed And Are Negative: Yes Physical Exam - Summary Physical Exam Summary: Patient has signs of accessory muscle use and labored breathing. He is able to speak in 6 word broken sentences. Patient appears noncyanotic. Auscultation reveals wheezing and rhonchi throughout the precordium. No evidence of Kussmaul breathing. Triage Information Reviewed: Yes Vital Signs On Initial Exam: Initial Vitals Temp Pulse Resp BP Pulse Ox 97.8 F 110 18 137/85 90 04/05/19 16:22 04/05/19 16:22 04/05/19 16:22 04/05/19 16:22 04/05/19 16:22 Vital Signs Reviewed: Yes Appearance: Positive: Well-Appearing, No Pain Distress, Well-Nourished Skin: Positive: Warm, Skin Color Reflects Adequate Perfusion Eyes: Positive: EOMI, KRISTOPHER ENT: Positive: Hearing grossly normal Respiratory/Lung Sounds: Positive: Breath Sounds Present, Rhonchi, Wheezes Cardiovascular: Positive: RRR, S1, S2 Abdomen Description: Positive: Nontender, No Organomegaly, Soft Bowel Sounds: Positive: Present Musculoskeletal: Positive: Strength/ROM Intact Neurological: Positive: Sensory/Motor Intact, Alert, Oriented to Person Place, Time, Normal Gait, Speech Normal Psychiatric: Positive: Normal AVPU Assessment: Alert Procedures - Sedation Patient Received Moderate/Deep Sedation with Procedure: No Diagnostics - Vital Signs Vital Signs Temp Pulse Resp BP Pulse Ox 04/05/19 17:38 99.6 F 110 30 156/86 97 04/05/19 16:22 97.8 F 110 18 137/85 90 - Laboratory Result Diagrams: 04/05/19 18:41 04/05/19 18:41 Lab Statement: Any lab studies that have been ordered have been reviewed, and results considered in the medical decision making process. Course/Dx - Course Course Of Treatment: Patient was evaluated in the emergency Department for COPD exacerbation. Patient was seen and examined his vitals are stable and his oxygen saturation was 92% on 4 L via nasal cannula. Laboratory studies show no leukocytosis or anemia.blood glucose was 263. There are no significant electrolyte abnormalities.arterial blood gas shows full compensation. Carbon monoxide screen negative. EKG revealed no evidence of acute myocardial infarction. Sinus tachycardia at a rate of 107 beats per minute. Normal FL and QTc interval. Possible left axis deviation.patient was placed on Vapotherm and given 2 DuoNeb and 125 mg of Solu-Medrol. He is given a prescription for 40 mg prednisone for 4 days to take as an outpatient. This appeared to be an exacerbation of COPD and after discontinuation of the Vapotherm his oxygen saturation remained around 92% on 3 L via nasal cannula patient wears oxygen at home. he was told to follow up with his primary care provider for further evaluation and management of his COPD. He was told to return to the emergency department immediately if he developed any new or worsening symptoms. - Diagnoses Differential Diagnosis/HQI/PQRI: Positive: Bronchitis, CHF, COPD Exacerbation, Pneumonia, Pulmonary Embolism Provider Diagnoses: COPD exacerbation Discharge ED - Sign-Out/Discharge Documenting (check all that apply): Patient Departure - Discharge Plan Condition: Stable Disposition: HOME Prescriptions: predniSONE TAB* [Deltasone 20 MG TAB*] 40 mg PO DAILY #4 tab Patient Education Materials: COPD (Chronic Obstructive Pulmonary Disease) (ED) Referrals: Elisha Vuong DO [Primary Care Provider] - 2 Days Additional Instructions: You were seen in the emergency department today for a COPD exacerbation. Please be sure to wear oxygen at home and to stop smoking. I prescribed a steroid to your pharmacy to be taken once daily for 4 days. The steroid will help decrease inflammation in your lungs and improve your breathing. Please continue to take your home medications as directed. Please follow up with your primary care provider in 2-3 days for further evaluation of your COPD. Please return to the emergency department immediately if you develop any new or worsening symptoms. - Billing Disposition and Condition Condition: STABLE Disposition: Home
[2019-04-05 18:59] LABS: ABS Eosinophils 0.1 10^3/ul (0-0.6); ABS Lymphocytes 0.9 10^3/ul (1.0-4.8); ABS Neutrophils 5.2 10^3/ul (1.5-7.7); Eosinophil % 1.5 %; Hematocrit 42 % (42-52); Hemoglobin 14.2 g/dL (14.0-18.0); Lymphocyte % 12.3 %; Mean Corpuscular HGB Conc 34 g/dL (31-36); Mean Corpuscular Hemoglobin 29 pg (27-31); Mean Corpuscular Volume 86 fL (80-94); Mean Platelet Volume 8.7 fL (7.4-10.4); Platelet Count 117 10^3/uL (150-450); Red Blood Count 4.88 10^6 /uL (4.18-5.48); Red Cell Distribution Width 15 % (10-15); White Blood Count 7.3 10^3/uL (3.5-10.8)
[2019-04-05 19:12] LABS: Troponin I 0.02 ng/mL (<0.03)
[2019-04-05 19:14] LABS: Albumin 3.9 g/dL (3.2-5.2); Albumin/Globulin Ratio 1.3 (1-3); BUN/Creatinine Ratio 19.3 (8-20); Calcium 9.4 mg/dL (8.6-10.3); EGFR African American 181.6 (>60); EGFR Non-African American 150.1 (>60); Globulin 2.9 g/dL (2-4); Potassium 3.8 mmol/L (3.5-5.0); Total Bilirubin 0.4 mg/dL (0.2-1.0); Total Protein 6.8 g/dL (6.4-8.9)
[2019-04-06 00:10] VITALS: BP 127/82
== END 2019-04-06 00:02 | disposition home or self-care (01) ==
LOC: ED 15:58
DX: J44.1 Chronic obstructive pulmonary disease with (acute) exacerbation (principal); R00.0 Tachycardia, unspecified; E11.9 Type 2 diabetes mellitus without complications; I10 Essential (primary) hypertension; Z99.81 Dependence on supplemental oxygen; Z88.1 Allergy status to other antibiotic agents; Z91.018 Allergy to other foods; F17.210 Nicotine dependence, cigarettes, uncomplicated
CPT/HCPCS: 36415; 71046; 80053; 82375; 82803; 83605; 84484; 85025; 93005; 96365; 96375; 99284; A9270-GY; J2930; J3475

== ENCOUNTER 2019-04-07 12:40 | Emergency (ER) | payer OTHER ==
--- OUTSIDE RECORDS SUMMARY | 2019-04-07 12:56 | XMS REPORT | Continuity of Care Document ---
:1965 External Reference #:[id number] Author Name Elisha Vuong DO Address [address] [place] [id number] Problems Active Problems Provider Date Adult health [...] Medications SIG Qnty Indications Ordering Date Provider Humalog Mix 75/25 45 units 2x daily 30ml ENRIQUE Ramirez 04/04/2019 Kwikpen under skin (75-25)100Unit/ML Supn Albuterol Sulfate Inhale 2 Puffs By 18units Elisha 03/25/2019 HFA Mouth Every 4 Karnow, DO 108(90Base) Hours as Needed mcg/Act Aerosol Cpap Supplies Full face mask, 1units Elisha 03/15/2019 headgear, tubing Karnow, DO and filter. Dx is severe COPD BD Insulin Syringe 1 needle 2 x daily 2boxes Annette KristinataJJ taylorP 03/14/2019 Ultrafine/0.5ML/31G X 5/16" 31G X 5/16" 0.5 ML Misc Spiriva Respimat 2 puffs inhalation 12gm Janene Garcia, USER INTERFACE DEVELOPER 01/16/2019 every day 2.5mcg/Act Aerosol Ipratropium 3 ML every 6 hours 60units Unknown 12/21/2018 [place]/Albuterol Inhalation Sulfate 0.5-2.5(3)mg/3ML Solution Advair Diskus 1 twice each day 1units Unknown 09/17/2018 Inhalation 500-50mcg/Dose Aerosol 1St Tier Unifine 1 twice daily N/A 1units Unknown 08/27/2018 Pentips /Mini/[id number] 31G X 5 mm Misc Accu-Chek Crystal [...] Mass Index) 33.7 kg/m2 Results Test Acquired Date Facility Test Result H/L Range Note Laboratory test 04/05/2019 [facility] Carbon Monoxide <4.0 % <4.[address] [place] [address] [phone] Arterial Blood Gas 04/05/2019 [facility] Fio2 [address] [place] [address] [phone] PH Arterial 7.43 Normal 7.35-7.45 Pco2 Arterial 60 mmHg High 35-45 Po2 Arterial 72 mmHg Low 80-100 O2 Saturation Arterial 95.5 % Normal 94.0-98.0 Base Excess Arterial 12.8 mmol/L High -2.0-2.0 1 Hco3 Arterial 34.8 mmol/L High 19-31 Laboratory test 04/05/2019 [facility] Lactic Acid 1.3 mmol/L Normal 0.5-2.[address] [place] [address] [phone] CBC Auto Diff 04/05/2019 [facility] White Blood 7.3 10^3/uL Normal 3.5-10.[address] [place] [address] [phone] Red Blood Count 4.88 10^6/uL Normal 4.18-5.48 Hemoglobin 14.2 g/dL Normal 14.0-18.0 Hematocrit 42 % Normal 42-52 Mean Corpuscular Volume 86 fL Normal 80-94 Mean Corpuscular Hemoglobin 29 pg Normal 27-31 Mean Corpuscular HGB Conc 34 g/dL Normal 31-36 Red Cell Distribution Width 15 % Normal 10-15 Platelet Count 117 10^3/uL Low 150-450 Mean Platelet Volume 8.7 fL Normal 7.4-10.4 Abs Neutrophils 5.2 10^3/uL Normal 1.5-7.7 Abs Lymphocytes 0.9 10^3/uL Low 1.0-4.8 Abs Monocytes 1.0 10^3/uL High 0-0.8 Abs Eosinophils 0.1 10^3/uL Normal 0-0.6 Abs Basophils 0.0 10^3/uL Normal 0-0.2 Abs Nucleated RBC 0.0 10^3/uL Granulocyte % 71.4 % Lymphocyte % 12.3 % Monocyte % 14.4 % Eosinophil % 1.5 % Basophil % 0.4 % Nucleated Red Blood Cells % 0.0 Laboratory test 04/05/2019 [facility] Troponin-I 0.02 <0.[address] (TnI) ng/mL [place], [place] [id number] [phone] Comp Metabolic 04/05/2019 [facility] Sodium 135 Normal 135- [address] mmol/[place] [address] [phone] Potassium 3.8 mmol/L Normal 3.5-5.0 Chloride 94 mmol/L Low 101-111 Co2 Carbon Dioxide 35 mmol/L High 22-32 Anion Gap 6 mmol/L Normal 2-11 Glucose 263 mg/dL High 70-100 Blood Urea Nitrogen 11 mg/dL Normal 6-24 Creatinine 0.57 mg/dL Low 0.67-1.17 BUN/Creatinine Ratio 19.3 Normal 8-20 Calcium 9.4 mg/dL Normal 8.6-10.3 Total Protein 6.8 g/dL Normal 6.4-8.9 Albumin 3.9 g/dL Normal 3.2-5.2 Globulin 2.9 g/dL Normal 2-4 Albumin/Globulin Ratio 1.3 Normal 1-3 Total Bilirubin 0.40 mg/dL Normal 0.2-1.0 Alkaline Phosphatase 38 U/L Normal 34-104 Alt 22 U/L Normal 7-52 Ast 17 U/L Normal 13-39 Egfr Non- 150.1 >60 Egfr 181.6 >60 4 Laboratory 03/05/2019 [facility] Troponin-I 0.04 Critical < 0.04 5 test finding [address] (TnI) ng/mL high [place], [place] [id number] [phone] Comp Metabolic 03/05/2019 [facility] Sodium 137 Normal 135- [address] mmol/[place] [address] [phone] Potassium 4.7 mmol/L Normal 3.5-5.0 Chloride 92 [...] Egfr Non- 153.2 >60 Egfr 185.4 >60 6 Co2 Carbon Dioxide 42 mmol/L Critical high 22-32 7 Anion Gap 3 mmol/L Normal 2-11 Laboratory 03/05/2019 [facility] B-Type 27 pg/mL <=100 test finding [address] [place] [address] Peptide BNP [phone] CBC Auto Diff 03/05/2019 [facility] White Blood 6.0 Normal 3.5 -10.[address] Count 10^3/[place] [address] [phone] Red Blood Count 5.23 10^6/uL Normal 4.18-5.48 [...] % Nucleated Red Blood Cells % 0.0 Venous Blood 03/05/2019 [facility] Venous Blood 7.32 Normal 7.32-7.[address] [place] [address] [phone] Venous Pco2 91 mmHg High 41-51 Venous Po2 55.0 mmHg High 35-45 Venous O2 Saturation 88.8 % High 70-80 Venous Blood Base Excess 16.1 mmol/L High 0.0-4.0 8 Venous Bicarbonate Hco3 37.2 mmol/L High 24-28 Venous Blood 03/05/2019 [facility] Venous Blood 7.33 Normal 7.32-7.[address] [place] [address] [phone] Venous Pco2 71 mmHg High 41-51 Venous Po2 62.0 mmHg High 35-45 Venous O2 Saturation 93.6 % High 70-80 Venous Blood Base Excess 8.7 mmol/L High 0.0-4.0 9 Venous Bicarbonate Hco3 31.5 mmol/L High 24-28 Laboratory 03/05/2019 [facility] Troponin-I 0.05 Critical < 0.04 10 test finding [address] (TnI) ng/[place] [address] [phone] BP Goal 12/21/2018 N2N/CCD Import BP Goal <130/80 Sodium 12/17/2018 N2N/CCD Import Sodium 141 135-145 mmol/L mmol/L Protein, Total 12/17/2018 N2N/CCD Import Protein, 7.3 g/dL 6.4-8.9 Total g/dL Potassium 12/17/2018 N2N/CCD Import Potassium 5.0 3.5-5.0 mmol/L mmol/L Hemoglobin A1c 12/17/2018 N2N/CCD Import Hemoglobin 9.7 % High 4.0-5.6 A1c % Glucose 12/17/2018 N2N/CCD Import Glucose 260 High 70-100 mg/dL mg/dL Globulin 12/17/2018 N2N/CCD Import Globulin 2.6 g/dL 2-4 g/dL GFR Non Afr 12/17/2018 N2N/CCD Import GFR Non Afr 156.4 _ >60 Amer Amer GFR Afr Amer 12/17/2018 N2N/CCD Import GFR Afr Amer 189.3 _ >60 Creatinine 12/17/2018 N2N/CCD Import Creatinine 0.55 Low 0.67-1.1 mg/dL 7 mg/dL Co2 12/17/2018 N2N/CCD Import Co2 41 Critical 22-32 mmol/L low mmol/L Chloride 12/17/2018 N2N/CCD Import Chloride 93 [...] Import A/G Ratio 1.8 _ 1-3 1 Reference ranges based on room air. 2 [facility] Severe Sepsis and Septic Shock Management Bundle Measure requires all lactic acids initially measuring >2.0 mmol/L be repeated. 3 Troponin-I testing on Plasma Separator Tubes (PST) has a known false positive rate of 0.20-0.40%. All positive troponins reflex immediately to secondary confirmatory testing. Using the [employer] DxI 800 Access Immunoassay systems, the 99th percentile upper reference limit was demonstrated to be < 0.03 ng/mL. 4 Because ethnic data is not always [...] 5 Kidney failure <15 (or dialysis) 5 Result TnIDx:0.04 Called to [id number] at: 14:51:14 by:[id number] Read back by:[id number] Troponin-I testing on Plasma Separator Tubes (PST) has a known false positive rate of 0.20-0.40%. All positive troponins reflex immediately to secondary confirmatory testing. Using the [employer] DxI 800 Access Immunoassay systems, the 99th percentile upper reference limit was demonstrated to be < 0.03 ng/mL. 6 Because ethnic data is not always readily [...] 15-29 5 Kidney failure <15 (or dialysis) 7 Critical Result CO2:42 Called to [id number] at: 14:51:14 by:[id number] Read back by:[id number] 8 Reference ranges based on room air. 9 Reference ranges based on room air. 10 Result TnIDx:0.05 Called to [id number] at: 18:09:03 by:[id number] Read back by: [id number] Troponin-I testing on Plasma Separator Tubes (PST) has a known false positive rate of 0.20-0.40%. All positive troponins reflex immediately to secondary confirmatory testing. Using the [employer] DxI 800 Access Immunoassay systems, the 99th percentile upper reference limit was demonstrated to be < 0.03 ng/mL. Procedures Description No Information Available Medical Devices Description No Information Available Encounters Type Date Location Provider Dx Diagnosis Office Visit 03/27/2019 8:15a [facility] Annette Acevedotama, USER INTERFACE DEVELOPER J44.9 Chronic obstructive pulmonary disease, unspecified F17.200 Nicotine dependence, unspecified, uncomplicated Office Visit 03/14/2019 9:00a [facility] Annette Acevedotama, USER INTERFACE DEVELOPER J44.9 Chronic obstructive pulmonary disease, unspecified J96.90 Respiratory failure, unsp, unsp w hypoxia or hypercapnia E11.9 Type 2 diabetes mellitus without complications Z68.33 Body mass index (BMI) 33.0-33.9, adult Assessments Date Code Description Provider 03/27/2019 J44.9 Chronic obstructive pulmonary disease, Annette Kristinatama, USER INTERFACE DEVELOPER unspecified 03/27/2019 F17.200 Nicotine dependence, unspecified, uncomplicated Annette Aittama, USER INTERFACE DEVELOPER 03/14/2019 J44.9 Chronic obstructive pulmonary disease, Annette Aittama, USER INTERFACE DEVELOPER unspecified 03/14/2019 J96.90 Respiratory failure, unspecified, unspecified Annette Aittama , USER INTERFACE DEVELOPER whether with hypoxia or hypercapnia 03/14/2019 E11.9 Type 2 diabetes mellitus without complications Annette Aittama , USER INTERFACE DEVELOPER 03/14/2019 Z68.33 Body mass index (BMI) 33.0-33.9, adult Annette Kristinatama, USER INTERFACE DEVELOPER Plan of Treatment 03/27/2019 - Annette Kristinatama, FNPJ44.9 Chronic obstructive pulmonary disease, unspecifiedComments:Continue to [...] hospitalization. Consult with Dr. Rodriguez while in [facility]. Requesting him to be seen in the next week. [address] [place] [id number] [phone]
--- OUTSIDE RECORDS SUMMARY | 2019-04-07 12:56 | XMS REPORT | Continuity of Care Document ---
:1965 External Reference #:[id number] Author Name Elisha Vuong DO Address [address] [place] [id number] Problems Active Problems Provider Date Adult health [...] Respimat 2 puffs inhalation 12gm Janene Garcia, CARDIAC REHAB NURSE 01/16/2019 every day 2.5mcg/Act Aerosol Ipratropium 3 ML every 6 hours 60units Unknown 12/21/2018 [place]/Albuterol Inhalation Sulfate 0.5-2.5(3)mg/3ML Solution Advair Diskus 1 twice each day 1units Unknown 09/17/2018 Inhalation 500-50mcg/Dose Aerosol 1St Tier Unifine 1 twice daily N/A 1units Unknown 08/27/2018 Pentips /Mini/[id number] 31G X 5 mm Misc Accu-Chek Crystal [...] H/L Range Note Laboratory test 04/05/2019 [facility] Carbon Monoxide <4.0 % <4.[address] [place] [address] [phone] Arterial Blood Gas 04/05/2019 [facility] Fio2 [address] [place] [address] [phone] PH Arterial 7.43 Normal 7.35-7.45 Pco2 Arterial 60 mmHg High 35-45 Po2 Arterial 72 mmHg Low 80-100 O2 Saturation Arterial 95.5 % Normal 94.0-98.0 Base Excess Arterial 12.8 mmol/L High -2.0-2.0 1 Hco3 Arterial 34.8 mmol/L High 19-31 Laboratory test 04/05/2019 [facility] Lactic Acid 1.3 mmol/L Normal 0.5-2.[address] [place] [address] [phone] CBC Auto Diff 04/05/2019 [facility] White Blood 7.3 10^3/uL Normal 3.5-10.[address] [place] [address] [phone] Red Blood Count 4.88 10^6/uL Normal 4.18-5.48 [...] Cells % 0.0 Laboratory test 04/05/2019 [facility] Troponin-I 0.02 <0.03 [address] (TnI) ng/mL [place], [place] [address] [phone] Comp Metabolic 04/05/2019 [facility] Sodium 135 Normal 135- [address] mmol/[place] [address] [phone] Potassium 3.8 mmol/L Normal 3.5-5.0 Chloride 94 [...] Egfr 181.6 >60 4 Laboratory 03/05/2019 [facility] Troponin-I 0.04 Critical < 0.04 5 test finding [address] (TnI) ng/mL high [place], [place] [address] [phone] Comp Metabolic 03/05/2019 [facility] Sodium 137 Normal 135- [address] mmol/[place] [address] [phone] Potassium 4.7 mmol/L Normal 3.5-5.0 Chloride 92 [...] 3 mmol/L Normal 2-11 Laboratory 03/05/2019 [facility] B-Type 27 pg/mL <=100 test finding [address] [place] [address] Peptide BNP [phone] CBC Auto Diff 03/05/2019 [facility] White Blood 6.0 Normal 3.5 -10.[address] Count 10^3/[place] [address] [phone] Red Blood Count 5.23 10^6/uL Normal 4.18-5.48 [...] Cells % 0.0 Venous Blood 03/05/2019 [facility] Venous Blood 7.32 Normal 7.32-7.[address] [place] [address] [phone] Venous Pco2 91 mmHg High 41-51 Venous Po2 55.0 mmHg High 35-45 Venous O2 Saturation 88.8 % High 70-80 Venous Blood Base Excess 16.1 mmol/L High 0.0-4.0 8 Venous Bicarbonate Hco3 37.2 mmol/L High 24-28 Venous Blood 03/05/2019 [facility] Venous Blood 7.33 Normal 7.32-7.[address] [place] [address] [phone] Venous Pco2 71 mmHg High 41-51 Venous Po2 62.0 mmHg High 35-45 Venous O2 Saturation 93.6 % High 70-80 Venous Blood Base Excess 8.7 mmol/L High 0.0-4.0 9 Venous Bicarbonate Hco3 31.5 mmol/L High 24-28 Laboratory 03/05/2019 [facility] Troponin-I 0.05 Critical < 0.04 10 test finding [address] (TnI) ng/[place] [address] [phone] BP Goal 12/21/2018 N2N/CCD Import BP Goal [...] Reference ranges based on room air. 2 [facility] Severe Sepsis and Septic Shock Management Bundle Measure requires all lactic acids initially measuring >2.0 mmol/L be repeated. 3 Troponin-I testing on Plasma Separator Tubes (PST) has a known false positive rate of 0.20-0.40%. All positive troponins reflex immediately to secondary confirmatory testing. Using the [employer] DxI 800 Access Immunoassay systems, the 99th [...] (or dialysis) 5 Result TnIDx:0.04 Called to [id number] at: 14:51:14 by:[id number] Read back by:[id number] Troponin-I testing on Plasma Separator Tubes (PST) has a known false positive rate of 0.20-0.40%. All positive troponins reflex immediately to secondary confirmatory testing. Using the [employer] DxI 800 Access Immunoassay systems, the 99th [...] dialysis) 7 Critical Result CO2:42 Called to [id number] at: 14:51:14 by:[id number] Read back by:[id number] 8 Reference ranges based on room air. 9 Reference ranges based on room air. 10 Result TnIDx:0.05 Called to [id number] at: 18:09:03 by:[id number] Read back by: [id number] Troponin-I testing on Plasma Separator Tubes (PST) has a known false positive rate of 0.20-0.40%. All positive troponins reflex immediately to secondary confirmatory testing. Using the [employer] DxI 800 Access Immunoassay systems, the 99th percentile upper reference limit was demonstrated to be < 0.03 ng/mL. Procedures Description No Information Available Medical Devices Description No Information Available Encounters Type Date Location Provider Dx Diagnosis Office Visit 03/27/2019 8:15a [facility] Annette Acevedotama, CARDIAC REHAB NURSE J44.9 Chronic obstructive pulmonary disease, unspecified F17.200 Nicotine dependence, unspecified, uncomplicated Office Visit 03/14/2019 9:00a [facility] Annette Acevedotama, CARDIAC REHAB NURSE J44.9 Chronic obstructive pulmonary disease, unspecified J96.90 Respiratory failure, unsp, unsp w hypoxia or hypercapnia E11.9 Type 2 diabetes mellitus without complications Z68.33 Body mass index (BMI) 33.0-33.9, adult Assessments Date Code Description Provider 03/27/2019 J44.9 Chronic obstructive pulmonary disease, Annette Kristinatama, CARDIAC REHAB NURSE unspecified 03/27/2019 F17.200 Nicotine dependence, unspecified, uncomplicated Annette Aittama, CARDIAC REHAB NURSE 03/14/2019 J44.9 Chronic obstructive pulmonary disease, Annette Aittama, CARDIAC REHAB NURSE unspecified 03/14/2019 J96.90 Respiratory failure, unspecified, unspecified Annette Aittama , CARDIAC REHAB NURSE whether with hypoxia or hypercapnia 03/14/2019 E11.9 Type 2 diabetes mellitus without complications Annette Aittama , CARDIAC REHAB NURSE 03/14/2019 Z68.33 Body mass index (BMI) 33.0-33.9, adult Annette Kristinatama, CARDIAC REHAB NURSE Plan of Treatment 03/27/2019 - Annette Kristinatama, [...] hospitalization. [place] with Dr. Rodriguez while in [facility] [place] Requesting him to be seen in the next week. [address] [place] [id number] [id number]
--- OUTSIDE RECORDS SUMMARY | 2019-04-07 12:56 | XMS REPORT | Continuity of Care Document ---
:1965 External Reference #:[id number] Author Name Elisha Vuong DO Address [address] [place] [id number] Problems Active Problems Provider Date Adult health [...] Respimat 2 puffs inhalation 12gm Janene Garcia, STOCK PREPARATION OPERATOR 01/16/2019 every day 2.5mcg/Act Aerosol Ipratropium 3 ML every 6 hours 60units Unknown 12/21/2018 [place]/Albuterol Inhalation Sulfate 0.5-2.5(3)mg/3ML Solution Advair Diskus 1 twice each day 1units Unknown 09/17/2018 Inhalation 500-50mcg/Dose Aerosol 1St Tier Unifine 1 twice daily N/A 1units Unknown 08/27/2018 Pentips /Mini/[id number] 31G X 5 mm Misc Accu-Chek Crystal [...] Result H/L Range Note Laboratory test 04/05/2019 [facility] Carbon Monoxide <4.0 % <4.[address] [place] [address] [phone] Arterial Blood Gas 04/05/2019 [facility] Fio2 [address] [place] [address] [phone] PH Arterial 7.43 Normal 7.35-7.45 Pco2 Arterial 60 mmHg High 35-45 Po2 Arterial 72 mmHg Low 80-100 O2 Saturation Arterial 95.5 % Normal 94.0-98.0 Base Excess Arterial 12.8 mmol/L High -2.0-2.0 1 Hco3 Arterial 34.8 mmol/L High 19-31 Laboratory test 04/05/2019 [facility] Lactic Acid 1.3 mmol/L Normal 0.5-2.[address] [place] [address] [phone] CBC Auto Diff 04/05/2019 [facility] White Blood 7.3 10^3/uL Normal 3.5-10.[address] [place] [address] [phone] Red Blood Count 4.88 10^6/uL Normal 4.18-5.48 [...] Blood Cells % 0.0 Laboratory test 04/05/2019 [facility] Troponin-I 0.02 <0.03 [address] (TnI) ng/mL [place], [place] [address] [phone] Comp Metabolic 04/05/2019 [facility] Sodium 135 Normal 135- [address] mmol/[place] [address] [phone] Potassium 3.8 mmol/L Normal 3.5-5.0 Chloride 94 [...] >60 Egfr 181.6 >60 4 Laboratory 03/05/2019 [facility] Troponin-I 0.04 Critical < 0.04 5 test finding [address] (TnI) ng/mL high [place], [place] [address] [phone] Comp Metabolic 03/05/2019 [facility] Sodium 137 Normal 135- [address] mmol/[place] [address] [phone] Potassium 4.7 mmol/L Normal 3.5-5.0 Chloride 92 [...] Gap 3 mmol/L Normal 2-11 Laboratory 03/05/2019 [facility] B-Type 27 pg/mL <=100 test finding [address] [place] [address] Peptide BNP [phone] CBC Auto Diff 03/05/2019 [facility] White Blood 6.0 Normal 3.5 -10.[address] Count 10^3/[place] [address] [phone] Red Blood Count 5.23 10^6/uL Normal 4.18-5.48 [...] Blood Cells % 0.0 Venous Blood 03/05/2019 [facility] Venous Blood 7.32 Normal 7.32-7.[address] [place] [address] [phone] Venous Pco2 91 mmHg High 41-51 Venous Po2 55.0 mmHg High 35-45 Venous O2 Saturation 88.8 % High 70-80 Venous Blood Base Excess 16.1 mmol/L High 0.0-4.0 8 Venous Bicarbonate Hco3 37.2 mmol/L High 24-28 Venous Blood 03/05/2019 [facility] Venous Blood 7.33 Normal 7.32-7.[address] [place] [address] [phone] Venous Pco2 71 mmHg High 41-51 Venous Po2 62.0 mmHg High 35-45 Venous O2 Saturation 93.6 % High 70-80 Venous Blood Base Excess 8.7 mmol/L High 0.0-4.0 9 Venous Bicarbonate Hco3 31.5 mmol/L High 24-28 Laboratory 03/05/2019 [facility] Troponin-I 0.05 Critical < 0.04 10 test finding [address] (TnI) ng/[place] [address] [phone] BP Goal 12/21/2018 N2N/CCD Import BP Goal [...] Reference ranges based on room air. 2 [facility] Severe Sepsis and Septic Shock Management Bundle Measure requires all lactic acids initially measuring >2.0 mmol/L be repeated. 3 Troponin-I testing on Plasma Separator Tubes (PST) has a known false positive rate of 0.20-0.40%. All positive troponins reflex immediately to secondary confirmatory testing. Using the [employer] DxI 800 Access Immunoassay systems, the [...] (or dialysis) 5 Result TnIDx:0.04 Called to [id number] at: 14:51:14 by:[id number] Read back by:[id number] Troponin-I testing on Plasma Separator Tubes (PST) has a known false positive rate of 0.20-0.40%. All positive troponins reflex immediately to secondary confirmatory testing. Using the [employer] DxI 800 Access Immunoassay systems, the [...] dialysis) 7 Critical Result CO2:42 Called to [id number] at: 14:51:14 by:[id number] Read back by:[id number] 8 Reference ranges based on room air. 9 Reference ranges based on room air. 10 Result TnIDx:0.05 Called to [id number] at: 18:09:03 by:[id number] Read back by: [id number] Troponin-I testing on Plasma Separator Tubes (PST) has a known false positive rate of 0.20-0.40%. All positive troponins reflex immediately to secondary confirmatory testing. Using the [employer] DxI 800 Access Immunoassay systems, the 99th percentile upper reference limit was demonstrated to be < 0.03 ng/mL. Procedures Description No Information Available Medical Devices Description No Information Available Encounters Type Date Location Provider Dx Diagnosis Office Visit 03/27/2019 8:15a [facility] Annette Acevedotama, STOCK PREPARATION OPERATOR J44.9 Chronic obstructive pulmonary disease, unspecified F17.200 Nicotine dependence, unspecified, uncomplicated Office Visit 03/14/2019 9:00a [facility] Annette Acevedotama, STOCK PREPARATION OPERATOR J44.9 Chronic obstructive pulmonary disease, unspecified J96.90 Respiratory failure, unsp, unsp w hypoxia or hypercapnia E11.9 Type 2 diabetes mellitus without complications Z68.33 Body mass index (BMI) 33.0-33.9, adult Assessments Date Code Description Provider 03/27/2019 J44.9 Chronic obstructive pulmonary disease, Annette Kristinatama, STOCK PREPARATION OPERATOR unspecified 03/27/2019 F17.200 Nicotine dependence, unspecified, uncomplicated Annette Aittama, STOCK PREPARATION OPERATOR 03/14/2019 J44.9 Chronic obstructive pulmonary disease, Annette Aittama, STOCK PREPARATION OPERATOR unspecified 03/14/2019 J96.90 Respiratory failure, unspecified, unspecified Annette Aittama , STOCK PREPARATION OPERATOR whether with hypoxia or hypercapnia 03/14/2019 E11.9 Type 2 diabetes mellitus without complications Annette Aittama , STOCK PREPARATION OPERATOR 03/14/2019 Z68.33 Body mass index (BMI) 33.0-33.9, adult Annette Kristinatama, STOCK PREPARATION OPERATOR Plan of Treatment 03/27/2019 - Annette Kristinatama, [...] hospitalization. Consult with Dr. Rodriguez while in [facility]. Requesting him to be seen in the next week. [address] [place] [id number] [id number]
[2019-04-07 15:33] LABS: ABS Lymphocytes 0.5 10^3/ul (1.0-4.8); ABS Monocytes 0.8 10^3/ul (0-0.8); ABS Neutrophils 7.8 10^3/ul (1.5-7.7); Eosinophil % 0.4 %; Hematocrit 40 % (42-52); Hemoglobin 13.4 g/dL (14.0-18.0); Lymphocyte % 5.8 %; Mean Corpuscular HGB Conc 33 g/dL (31-36); Mean Corpuscular Hemoglobin 29 pg (27-31); Mean Corpuscular Volume 87 fL (80-94); Mean Platelet Volume 8.4 fL (7.4-10.4); Platelet Count 154 10^3/uL (150-450); Red Blood Count 4.61 10^6 /uL (4.18-5.48); Red Cell Distribution Width 15 % (10-15); White Blood Count 9.2 10^3/uL (3.5-10.8)
[2019-04-07 15:51] LABS: Albumin 3.9 g/dL (3.2-5.2); Albumin/Globulin Ratio 1.3 (1-3); BUN/Creatinine Ratio 38.6 (8-20); Calcium 9.4 mg/dL (8.6-10.3); EGFR African American 181.6 (>60); EGFR Non-African American 150.1 (>60); Total Bilirubin 0.4 mg/dL (0.2-1.0); Total Protein 6.9 g/dL (6.4-8.9)
[2019-04-07 15:53] LABS: Troponin I 0.01 ng/mL (<0.03)
--- NOTE | 2019-04-07 16:13 | ED ---
Shortness of Breath - HPI Summary HPI Summary: 53 year old male presents to the ED with shortness of breath since this morning. SOB is exacerbated by walking. Not alleviated by 3.5 L home O2. Patient was at the ED 2 days ago for SOB and coughing. He was given Prednisone which improved his symptoms until they worsened this morning. He denies cough and fever. Normally O2 sat is 90-92. Hx COPD, HTN, DM, Asthma, and PN. Patient smokes tobacco. Has outpatient sleep study planned for sleep apnea but is having trouble w his insurance. No CP, fevers. - History of Current Complaint Chief Complaint: EDShortnessOfBreath Time Seen by Provider: 04/07/19 15:10 Hx Obtained From: Patient Onset/Duration: Sudden Onset, Lasting Days, Still Present, Worse Since - this morning Current Severity: Moderate Dyspnea At: Orth[facility] Alleviating Factors: Nothing Related History: Similar Episode - 2 days ago - Allergy/Home Medications Allergies/Adverse Reactions: Allergies Allergy/AdvReac Type Severity Reaction Status Date / Time banana Allergy Difficulty Verified 09/15/18 09:44 Breathing/Wheezing levofloxacin Allergy Difficulty Verified 09/15/18 09:44 Breathing Home Medications: Home Medications Lisinopril 40 mg PO DAILY 04/07/19 [History Confirmed 04/07/19] Sitaglip/CizjzqgOP123/1000(NR) [Janumet XR 100/1000 (NF)] 1 tab PO DAILY [History Confirmed 04/07/19] PMH/Surg Hx/FS Hx/Imm Hx Endocrine/Hematology History: Reports: Hx Diabetes - Type II Denies: Hx Anticoagulant Therapy, Hx Thyroid Disease Cardiovascular History: Reports: Hx Hypertension, Other Cardiovascular Problems/ Disorders - 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 Denies: Hx Congestive Heart Failure, Hx Deep Vein Thrombosis, Hx Myocardial Infarction, Hx Pacemaker/ICD Respiratory History: Reports: Hx Asthma, Hx Chronic Obstructive Pulmonary Disease (COPD), Hx Pneumonia - 2012 Denies: Hx Lung Cancer, Hx Pulmonary Embolism GI History: Denies: Hx Gall Bladder Disease, Hx Gastrointestinal Bleed, Hx Ulcer, Hx Urosepsis History: Denies: Hx Kidney Stones, Hx Renal Disease Sensory History: Reports: Hx Contacts or Glasses - glasses Denies: Hx Eye Injury, Hx Vision Problem, Hx Deafness, Hx Hearing Aid, Hx Hearing Problem Opthamlomology History: Reports: Hx Contacts or Glasses - glasses Denies: Hx Eye Injury, Hx Vision Problem Neurological History: 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 Denies: Hx Dementia, Hx Migraine, Hx Seizures, Hx Transient Ischemic Attacks (TIA) Psychiatric History: Denies: Hx Anxiety, Hx Depression, Hx Schizophrenia, Hx Bipolar Disorder - Cancer History Cancer Type, Location and Year: DENIES Infectious Disease History: No Infectious Disease History: Denies: Hx Clostridium Difficile, Hx Hepatitis, Hx Human Immunodeficiency Virus (HIV), Hx of Known/Suspected MRSA, Hx Shingles, Hx Tuberculosis, Hx Known/ Suspected VRE, Hx Known/Suspected VRSA, History Other Infectious Disease, Traveled Outside the [place] in Last 30 Days - Family History Known Family History: Positive: Cardiac Disease, Hypertension, Diabetes - Social History Alcohol Use: Daily Alcohol Amount: 3-4 mixed drinks a day Hx Substance Use: No Substance Use Type: Reports: Marijuana Substance Use Comment - Amount & Last Used: occasionally Hx Tobacco Use: No Smoking Status (MU): Former Smoker Type: Cigarettes Amount Used/How Often: 1/2 PPD Length of Time of Smoking/Using Tobacco: 35+ years Have You Smoked in the Last Year: Yes Review of Systems Negative: Fever Positive: Shortness Of Breath. Negative: Cough All Other Systems Reviewed And Are Negative: Yes Physical Exam - Summary Physical Exam Summary: Constitutional: Well-developed, Well-nourished, Alert. (-) Distressed Skin: Warm, Dry HENT: Normocephalic; Atraumatic. Nasal Canula. Eyes: Conjunctiva normal Neck: Musculoskeletal ROM normal neck. (-) JVD, (-) Stridor, (-) Nuchal rigidity Cardio: Rhythm regular, rate normal, Heart sounds normal; Intact distal pulses; Radial pulses are 2+ and symmetric. (-) Murmur Pulmonary/Chest wall: Effort normal. (-) Respiratory distress. Decreased air entry bilaterally with bilateral scant wheezing. Abd: Soft, (-) tenderness, (-) Distension, (-) Guarding, (-) Rebound Musculoskeletal: (-) Edema Lymph: (-) Cervical adenopathy Neuro: Alert, Oriented x3 Psych: Mood and affect Normal Triage Information Reviewed: Yes Vital Signs On Initial Exam: Initial Vitals Temp Pulse Resp BP Pulse Ox 98.1 F 90 18 141/84 94 04/07/19 12:41 04/07/19 12:41 04/07/19 12:41 04/07/19 12:41 04/07/19 12:41 Vital Signs Reviewed: Yes Procedures - Sedation Patient Received Moderate/Deep Sedation with Procedure: No Diagnostics - Vital Signs Vital Signs Temp Pulse Resp BP Pulse Ox 04/07/19 15:16 115/70 04/07/19 14:30 99.1 F 90 18 128/67 95 04/07/19 12:41 98.1 F 90 18 141/84 94 - Laboratory Lab Results: Lab Results 04/07/19 04/07/19 Range/Units 15:27 15:27 WBC 9.2 (3.5-10.8) 10^3/uL RBC 4.61 (4.18-5.48) 10^6 /uL Hgb 13.4 L (14.0-18.0) g/dL Hct 40 L (42-52) % MCV 87 (80-94) fL MCH 29 (27-31) pg MCHC 33 (31-36) g/dL RDW 15 (10-15) % Plt Count 154 (150-450) 10^3/uL MPV 8.4 (7.4-10.4) fL Neut % (Auto) 84.6 % Lymph % (Auto) 5.8 % Rich % (Auto) 9.0 % Eos % (Auto) 0.4 % Baso % (Auto) 0.2 % Absolute Neuts (auto) 7.8 H (1.5-7.7) 10^3/ul Absolute Lymphs (auto) 0.5 L (1.0-4.8) 10^3/ul Absolute Monos (auto) 0.8 (0-0.8) 10^3/ul Absolute Eos (auto) 0.0 (0-0.6) 10^3/ul Absolute Basos (auto) 0.0 (0-0.2) 10^3/ul Absolute Nucleated RBC 0.0 10^3/ul Nucleated RBC % 0.0 Sodium 135 (135-145) mmol/L Potassium Pending Chloride 95 L (101-111) mmol/L Carbon Dioxide 37 H (22-32) mmol/L Anion Gap Pending BUN 22 (6-24) mg/dL Creatinine 0.57 L (0.67-1.17) mg/dL Est GFR ( Amer) 181.6 (>60) Est GFR (Non-Af Amer) 150.1 (>60) BUN/Creatinine Ratio 38.6 H (8-20) Glucose 282 H (70-100) mg/dL Calcium 9.4 (8.6-10.3) mg/dL Total Bilirubin 0.40 (0.2-1.0) mg/dL AST Pending ALT 27 (7-52) U/L Alkaline Phosphatase 34 (34-104) U/L Troponin I 0.01 (<0.03) ng/mL Total Protein 6.9 (6.4-8.9) g/dL Albumin 3.9 (3.2-5.2) g/dL Globulin 3.0 (2-4) g/dL Albumin/Globulin Ratio 1.3 (1-3) Result Diagrams: 04/07/19 15:27 04/07/19 15:27 Lab Statement: Any lab studies that have been ordered have been reviewed, and results considered in the medical decision making process. - Radiology CXR Radiology Interpretation Completed By: Radiologist Summary of Radiographic Findings: Impression. Nonspecific generalized reticulonodular opacification (less conspicuous relative to. March 05, 2019) . This could be infectious/inflammatory in nature. Recommend imaging to radiologic resolution. An ED physician has reviewed this report. - EKG 1534 Cardiac Rate: NL - 83 bpm EKG Rhythm: Sinus Rhythm ST Segment: Normal EKG Comparison: No Significant Change - 04/05/19 Summary of EKG Findings: EKG at 1534 shows normal sinus rhythm at 83 bpm. LBBB ( old). No STEMI. No change from 04/05/19. Dr. Tsai has reviewed and interpreted this EKG. Re-Evaluation - Re-Evaluation First Eval Re-Evaluation Time: 17:40 Change: Improved - patient seen and examined by hospitalist team, plan for prednisone taper. Will follow up with pulmonology. Course/Dx - Course Course Of Treatment: 53 y/o male w hx COPD on 3.5 L O2 w baseline O2 90% p/w continued GARCIA, fatigue in setting of COPD exacerbation. - recently seen for similar, discharged w steroids. Here, on baseline O2, trop neg, EKG unchanged from 2 days ago. CXR w resolving opacity. No leukocytosis. - given duoneb and doxy here. D/w hospitalist team who states patient appropriate for discharge w steroid taper and doxy. He has an outpatient sleep study for his trilogy CPAP planned. - please see their consult note. - Diagnoses Provider Diagnoses: COPD with exacerbation - Physician Notifications Discussed Care of Patient With: Diane Howe - Hospitalist Time Discussed With Above Provider: 16:49 Instructed by Provider To: Other - Spoke to Dr. Howe at 16:49. She will give her own evaluation. Discharge ED - Sign-Out/Discharge Documenting (check all that apply): Patient Departure - discharge - Discharge Plan Condition: Stable Disposition: HOME Prescriptions: DOXYcycline CAP(*) [DOXYcycline 100MG CAP(*)] 100 mg PO BID 7 Days #14 cap predniSONE TAB* [Deltasone 10 MG TAB*] 10 mg PO DAILY #84 tab Patient Education Materials: COPD (Chronic Obstructive Pulmonary Disease) (ED) Referrals: Elisha Vuong DO [Primary Care Provider] - Additional Instructions: You were seen in the emergency department for COPD exacerbation. Please take doxycycline twice a day for 7 days. Prednisone: Take 6 tablets daily for 4 day then 5 tablets daily for 4 days then 4 tablets daily for 4 days then 3 tablets daily for 4 days then 2 tablets daily for 4 days then 1 tablet daily for 4 days If any studies were not completed at the time of discharge you will be called with the relevant results. Please follow up with your primary care doctor in next 2-3 days and return to emergency department for worsening or concerning symptoms. It was a pleasure taking care of you today. - Billing Disposition and Condition Condition: STABLE Disposition: Home - Attestation Statements Document Initiated by Rocio: Yes Documenting Scribe: Zander Mathews Provider For Whom Rocio is Documenting (Include Credential): MD Aster Mayaibe Attestation: Zander Soto scribed for Elvis Tsai MD on 04/08/19 at 5144. Scribe Documentation Reviewed: Yes Provider Attestation: The documentation as recorded by the Zander velázquez accurately reflects the service I personally performed and the decisions made by , Elvis Tsai MD Status of Scribe Document: Viewed
[2019-04-07] MEDS ORDERED: Albuterol/Ipratropium NEB.SOL* Albuterol 2.5 MG/Ipratropium 0.5 MG 3 ML INH ONE (16:37)
[2019-04-07] MEDS ORDERED: cefTRIAXone(*) 1 GM in NS 0.9% 50 ML* 50 ML IVPB ONE (16:45)
[2019-04-07] MEDS ORDERED: DOXYcycline CAP(*) 100 MG PO ONE (16:50)
[2019-04-07 17:04] LABS: Potassium 5.2 mmol/L (3.5-5.0)
[2019-04-07] MEDS ORDERED: predniSONE TAB* 20 MG PO ONE (17:43)
[2019-04-07 18:33] VITALS: BP 122/81
--- NOTE | 2019-04-07 20:33 | CONS ---
HOSPITAL MEDICINE CONSULTATION REPORT: DATE OF CONSULT: 04/07/19 ATTENDING PHYSICIAN: Dr. Tsai, Emergency Room. CONSULTING PHYSICIAN: Dr. Diane Howe (dictated by Olga Lee, CLEVE). REASON FOR CONSULT: Shortness of breath, COPD exacerbation. HISTORY OF PRESENT ILLNESS: Mr. Lr is a 53-year-old male with a past medical history significant for COPD, type 2 diabetes, obstructive sleep apnea with home CPAP, hyperlipidemia, hypertension, who presented to the emergency room with complaints of shortness of breath. The patient does report that he was seen here on Monday due to his increased shortness of breath and cough. At that time, he was started on prednisone. The patient does report that he feels at his baseline at rest, but with exertion he does become more short of breath. The patient denies any increased fatigue, denies any chest pain. He denies any fever or chills. He denies any nausea, vomiting, diarrhea, or abdominal pain. He denies any dizziness, weakness, loss of consciousness, or lethargy. While in the emergency room, the patient did have a breathing treatment. He was given doxycycline p.o. The patient is comfortable at rest without respiratory distress at rest. He is on his baseline home O2 requirements of 3.5 to 4 L of oxygen, maintaining O2 saturations between 90% to 92% which the patient reports is his home baseline oxygen saturation. The patient does report that he has been feeling better since starting the prednisone on Monday, but does continue to have minimally productive cough. Due to his shortness of breath, Hospital Medicine was asked to see the patient in consultation. PAST MEDICAL HISTORY: 1. COPD, on baseline oxygen 3.5 to 4 L nasal cannula. 2. Type 2 diabetes. 3. Obstructive sleep apnea, on CPAP, does not use at home due to equipment not working properly. 4. Hyperlipidemia. 5. Hypertension. PAST SURGICAL HISTORY: None. HOME MEDICATIONS: Include: 1. Advair Diskus 2 puffs inhaled twice daily. 2. Albuterol nebulizer q.4 hours as needed for shortness of breath or wheezing. 3. Lipitor 40 mg p.o. daily. 4. Amlodipine 7.5 mg p.o. daily. 5. Lisinopril 40 mg p.o. daily. 6. Humalog 75/25 45 units twice daily. 7. Janumet 100/1000 one tablet daily. 8. Spiriva 1 cap inhaled daily. 9. Prednisone 40 mg x5 days, started Monday. ALLERGIES: BANANAS and LEVOFLOXACIN. FAMILY HISTORY: Father at the age of 67 due to cirrhosis related to alcohol use. Mother is living and 82. She has COPD. Denies any family history of RI, stroke, or malignancy. SOCIAL HISTORY: The patient currently resides with his girlfriend Roro. Roro is the surrogate decision maker in the event he is unable to make his own decisions. Her phone number is [phone]. He does report that he has been smoking half a pack a day since his discharge in the beginning of March. He does report he quit smoking approximately 3 days ago. He does drink alcohol approximately 9 drinks per week and does smoke marijuana as well. REVIEW OF SYSTEMS: A 14-point review of systems was completed. All pertinent positives are mentioned in the HPI, otherwise were negative. PHYSICAL EXAM: General: At this time, Mr. Lr is alert and oriented resting on the stretcher in the emergency room. He is in no acute respiratory distress. Vital Signs: Blood pressure 124/73, heart rate 98, respirations are 25, O2 saturation 91%, temperature was 99.1. HEENT: Head is atraumatic, normocephalic. Eyes: EOMs are intact. Sclerae anicteric and not pale. Oral mucosa appeared to be moist. Neck is supple. Lungs are diminished throughout bilaterally with mild expiratory wheezing. He does have a moist minimally productive cough with yellow secretions. Cardiac: S1, S2. Regular rate and rhythm. He is tachycardic. No rubs or gallops. Abdomen is obese, soft, nontender. Bowel sounds are present x4. Extremities: He is able to move all 4 extremities. There is no clubbing or cyanosis. Neurologic: He is awake, alert , oriented x3. Speech is clear. Thought process is intact. There are no gross focal deficits. Skin is intact. DIAGNOSTIC STUDIES/LAB DATA: WBCs are 9.2, RBC is 4.61, hemoglobin 13.4, hematocrit is 40, platelet count 154. Sodium 135, potassium 5.2, chloride 95, carbon dioxide was 37 which is at his baseline. BUN was 22, creatinine 0.57, AST was 25, ALT was 17, alkaline phosphatase was 34. Troponin was 0.01. The patient had a chest x-ray. Radiologist impression: Nonspecific generalized reticulonodular opacifications, less conspicuous when compared to x- ray from 03/05/19. This could be infectious versus inflammatory and need to recommend imaging until resolution. He had an electrocardiogram, which showed sinus rhythm at a rate of 83. IMPRESSION AND PLAN: Mr. Lr is a 53-year-old male known to the hospital medicine service for symptoms of chronic obstructive pulmonary disease, who presented to the emergency room with complaints of progressively worsening shortness of breath and cough. He was seen in the emergency room on Monday and diagnosed with chronic obstructive pulmonary disease exacerbation at that time, was started on prednisone. The patient was discharged from the emergency room and does report that he has been improving since his discharge on Monday. He returned to the emergency room today due to progressively worsening shortness of breath with exertion. Our recommendations are as follows: Chronic obstructive pulmonary disease exacerbation. The patient does appear to have a chronic obstructive pulmonary disease exacerbation. I would recommend continuing his nebulizers as previously prescribed at home. He can have rescue nebulizer, albuterol every 4 hours as needed for severe shortness of breath. I would increase his prednisone starting at 60 mg with a slow taper starting 60 mg x4 days and then decrease by 10 mg daily every 4 days until completion of the medication. I would also add doxycycline 100 mg p.o. b.i.d. x7 days for treatment of possible underlying lung infection. The patient was instructed to return to the emergency room if he developed any significantly worsening shortness of breath, fever, chills, decrease in mentation, or any other concerning symptoms. The patient and his girlfriend both verbalized understanding. The patient did have albuterol nebulizer in the emergency room as well as doxycycline. I will get him an extra dose of 40 mg of prednisone here in the emergency room, and he should start the prednisone 60 mg p.o. daily tomorrow. The patient should resume all home medications as previously prescribed. TIME SPENT: Time spent on this consultation was 45 minutes, greater than half that time was spent at the bedside reviewing the events leading thus far to his hospitalization, performing physical exam, and reviewing my plan of care. I have discussed this with my attending, Dr. Diane Howe; she is in agreement with my plan. I did discuss this case with Dr. Tsai from the emergency room. She will provide discharge instructions and prescriptions for the patient at discharge. Thank you for allowing us to consult in the care of this patient. OLGA LEE, CLEVE [id number]/[facility] #: [id number] BETH
== END 2019-04-07 18:20 | disposition home or self-care (01) ==
LOC: ED 12:40
DX: J44.1 Chronic obstructive pulmonary disease with (acute) exacerbation (principal); Z99.81 Dependence on supplemental oxygen; E11.9 Type 2 diabetes mellitus without complications; Z79.4 Long term (current) use of insulin; Z79.84 Long term (current) use of oral hypoglycemic drugs; I10 Essential (primary) hypertension; E78.5 Hyperlipidemia, unspecified; G47.33 Obstructive sleep apnea (adult) (pediatric); Z88.1 Allergy status to other antibiotic agents; Z91.018 Allergy to other foods; F17.210 Nicotine dependence, cigarettes, uncomplicated
CPT/HCPCS: 36415; 71046; 80053; 84484; 85025; 93005; 99283; A9270-GY; J7512